=== PATIENT | female | born 1955 | race Caucasian/White ===

== ENCOUNTER 2025-07-13 15:49 | Inpatient (IN) | payer MEDICARE, SELFPAY ==
[2025-07-13 16:09] VITALS: BP 137/86; PULSE 79; RESP 18; TEMP 36.4; O2SAT 95; BMI 22.2
[2025-07-13 17:38] VITALS: BP 135/86; PULSE 71; RESP 16; TEMP 36.4; O2SAT 95
--- NOTE | 2025-07-13 17:42 | HP.PCM_ITS ---
HPI - General General Date of Admission: 07/13/25 Date of Service: 07/13/25 Chief Complaint: POST STROKE DEBILITY HPI Narrative RAYMOND BERRY, is a 70 YO F with a PMH of HTN and glaucoma who presented to an ED on 07/08/25 c/o R side weakness and slurred speech. Sx had been present for at least 24 H but, had gotten worse. NC CTB showed a focal density in the L basal ganglia and no evidence of cortical infarct. NIH was 3 more mild facial droop, drift with the R leg and mild-mod dysarthria. She received loading doses of Plavix and ASA and was started on Atorvastatin 80 mg daily. TTE showed normal LV systolic function with a 65-70% EF. There was grade I diastolic dysfunction and the bubble study was negative for PFO/ASD. MRA of the head showed no LVO or significant flow limiting stenosis or aneurysm. MRI showed a 10mm X 4 mm area of restricted diffusion within the left putamen that extended cranially into the dubois radiata. There was aged related volume loss and evidence of ischemic white matter demyelination. LDL was 191. The DC summary states that she was diagnosed with HFpEF and depression which were new diagnoses. Neurology recommendations are for DAPT for 21 days then ASA alone. DC summary states that at the time of DC she had no evident focal neurologic deficits. She was transferred to the acute inpt rehab unit at [facility] on 07/13/25 for 3 hours of therapy daily to restore function/independence at or near her level prior to the the stroke. FOR[facility]LY [facility], [facility] Medical History (Updated 07/14/25 @ 11:[address] Hailey Cordova, ) Left shoulder pain Glaucoma HLD (hyperlipidemia) HTN (hypertension) Poor dental hygiene Depression Dyslipidemia Stroke Home Medications ?Medication ?Instructions ?Recorded ?Last Taken ?Type aspirin 81 mg tablet 81 mg PO DAILY heart health 07/13/25 07/13/25 History atorvastatin 80 mg tablet (Lipitor) 80 mg PO QHS anand sterol 07/13/25 07/12/25 History nvgotmy-fihisdzew-pojm 333 mg-133 1 tab PO DAILY suppl ement 07/13/25 Unknown History mg-5 mg tablet clopidogrel 75 mg tablet (Plavix) 75 mg PO DAILY heart 07/13/25 07/13/25 History dorzolamide 22.3 mg-timolol 6.8 1 drp EACH EYE Q8H eye s 07/13/25 07/13/25 History mg/mL eye drops (Cosopt) escitalopram oxalate 10 mg tablet 10 mg PO DAILY depre ssion 07/13/25 Unknown History (Lexapro) mirtazapine 15 mg tablet (Remeron) 7.5 mg PO QHS apati te 07/13/25 Unknown History multivitamin with minerals-folic 1 tab PO DAILY supple ment 07/13/25 Unknown History acid 80 mcg chewable tablet (Centrum Adult 50 Plus) Allergy/AdvReac Type Severity Reaction Status Date / Time No Known Allergies Allergy Verified 07/13/25 16:13 Family History Mother Breast cancer CVA (cerebral vascular accident) Diabetes type 2 Osteoporosis Surgical History (Updated 07/13/25 @ 17:[address] Hailey Cordova DO) Hx of cholecystectomy H/O: hysterectomy History of oophorectomy Social History (Updated 07/13/25 @ 17:[address] Hailey Cordova DO) household members: spouse and other details: Husbands name is Augustus. housing: other details: 2 story house with bedroom and BR on the second floor. number of children: 3 Smoking Status: Never smoker alcohol intake: never substance use type: does not use ROS Review of Systems ROS Unobtainable: Denies due to encephalopathy, due to endotracheal tube, due to mental condition or due to mental status Constitutional Constitutional: Reports fatigue, weakness and other Details: Denies any pain at this time ; Denies anorexia, change in weight, chills, fever(s), headache(s) or night sweats Eyes Eyes: Reports requires corrective lenses; Denies blurry vision, change in vision, discharge from eye(s), eye pain, loss of vision or ptosis ENT HEENT: Reports other Details: Denies dysphagia but, admits to coughing sometime when eating and drinking. ; Denies abnormal hearing, dysphagia, headache(s), hearing loss, nasal congestion or sore throat Cardiovascular Cardiovascular: Reports edema; Denies chest pain, dyspnea on exertion, lightheadedness, orthopnea, palpitations, paroxysmal nocturnal dyspnea or syncope Respiratory/Chest Respiratory/Chest: Reports cough; Denies dyspnea, shortness of breath at rest, shortness of breath with exertion or wheezing Gastrointestinal Gastrointestinal: Denies abdominal pain, constipation, diarrhea, dyspepsia, hematemesis, hematochezia, nausea or vomiting Genitourinary Genitourinary: Reports urinary incontinence; Denies dysuria, hematuria, nocturia, urinary frequency, urinary hesitancy or urinary urgency Musculoskeletal Musculoskeletal: Reports joint pain and other Details: has joint pain chronically but, denies any pain at the time of my exam. ; Denies back pain, joint swelling or neck pain Neurologic Neurologic: Reports focal weakness and weakness; Denies confusion, disequilibrium, dizziness, headache(s), loss of vision, paresthesias, seizures, sensory deficit, tremor(s) or vertigo Psychiatric Psychiatric: Denies anxiety, depression, homicidal ideation or suicidal ideation Endocrine Endocrinology: Denies change in body appearance, polydipsia or polyuria Hematologic/Lymphatic Hematologic/Lymphatic: Denies easy bleeding, easy bruising or lymphadenopathy Allergic/Immunologic Allergic/Immunologic: Denies rhinitis, eczemia or asthma Vital Signs Vital Signs Vital Signs: 07/13/25 16:09 07/13/25 17:38 Temperature 97.6 F L 97.6 F L Temperature Source Temporal Temporal Pulse Rate 79 71 Respiratory Rate 18 16 Blood Pressure 137/86 H 135/86 H Blood Pressure Mean 103 102 Blood Pressure Source Monitor Blood Pressure Position Semi-Fowlers Blood Pressure Location Left Arm Pulse Ox 95 95 Oxygen Delivery Method Room Air Room Air Weight Weight: 121 lb 11.123 oz Body Mass Index (BMI) 22.2 Indicators for Scoring Admitted with or Primary Diagnosis of CVA/Stroke: Yes Hx of CVA/Stroke: Yes Modified [place] Score MRS Score at time of Evaluation: 4-Moderate/severe disability NIHSS NIHSS 1a. Level of Consciousness: 0 - Alert; keenly responsive 1b. LOC Questions: 0 - Answers BOTH questions correctly 1c. LOC Commands: 0 - Performs BOTH tasks correctly 2. Best Gaze: 0 - Normal 3. Visual: 0 - No visual loss 4. Facial Palsy: 2 - Partial paralysis (total or near-total paralysis of lower face) (R face ) 5a. Left Arm: 0 - No drift; arm holds 90 (or 45) degrees for full 10 seconds 5b. Right Arm: 1 - Drift; arm drifts downward but doesn?t hit the bed 6a. Left Le - No drift; leg holds 30-degree position for full 5 seconds 6b. Right Le - Drift; leg falls by the end of 5-seconds, but does not hit bed 7. Limb Ataxia: 0 - Absent (can not test the RUE due to weakness but no ataxia in the RLE) 8. Sensory: 0 - Normal; no sensory loss 9. Best Language: 0 - No aphasia; normal 10. Dysarthria: 1 = [id number]-cq-[id number] dysarthria; (speech is very difficult to understand) 11. Extinction and Inattention: 0 - No abnormality Total: 5 Stroke Questions Stroke Team Activated: No Physical Exam Const alert, oriented x3 and no apparent distress Constitutional Narrative: Lying in bed General Appearance: cooperative HEENT normocephalic, head/scalp atraumatic and hearing grossly normal bilaterally HEENT Narrative: Very poor dental hygiene. Many missing teeth and many obvious caries. + halitosis MM are dry. Tongue protrudes on the midline. Pronounced R facial droop with moderate dysarthria. Eyes PERRL, EOMs intact bilaterally, conjunctivae normal and no scleral icterus Eyes Narrative: No discharge from the eyes and no mattering of the eyelashes. No nystagmus. General Eye: normal appearance of both eyes Neck supple, no JVD, No nodes and no carotid bruits Neck Narrative: Brisk carotid upstroke with good pulse volume General: trachea midline Chest Chest: symmetrical chest wall rise Resp normal respiratory effort, normal air movement and clear to auscultation bilaterally Effort and Inspection: able to speak in complete sentences Cardio regular rate, regular rhythm, S1 normal heart sound, S2 normal heart sound, no murmurs, no rub, no gallops and no clicks Cardio Narrative: No ectopy GI normal to inspection, nondistended, normoactive bowel sounds, soft to palpation and non-tender GI Narrative: No guarding with palpation. No masses, no hepatosplenomegaly, no bruit. no CVA tenderness Extremity no calf tenderness Extremity Narrative: She has pitting edema of both ankles, L>R. She has superficial varicosities of both LE's. Pedal pulses are diminished. Both feet are warm to the touch and she has intact sensation in both feet. She has no clubbing. She does have arthritic changes in the DIP's and PIPS's of both hands. Skin no wounds and no jaundice Skin Narrative: No rashes. No unusual bruising. Neuro Neuro Narrative: Pronounced R facial droop. Able to raise her eyebrows and wrinkle her forehead on both sides. Tongue protrudes on the midline. PERRLA, EOMI, no nystagmus. at least moderate dysarthria.......having a hard time understanding her. Decreased shoulder shrug on the R. She is R hand dominant. Decreased hand provider network analyst on the R. She can lift the R arm off the bed and hold it up for a count of 10 but, she has drift........does not hit the bed. Can not check for ataxia due to weakness. She has weakness of the R leg........able to lift it off the bed and hold it off the bed for a count of 5 but, has some drift....does not hit the bed. No ataxia in the RLE. She has intact sensation in all extremities. No extinction. No aphasia. Psych cooperative, denies hallucinations, denies homicidal ideation and denies suicidal ideation Psych Narrative: Affect is flat. She tells me that she is frustrated. she tells me that she has not been eating because she does not like the food. The nursing report from the previous hospital is taht she has not been eating because she does not want to use her Left arm to feed herself. Has apparently not been drinking much either. Has needed a lot of encouragement to try and do things for herself. Denies any hx of depression in the past. Made good eye contact with me. Does not appear anxious. Results Lab / Micro Data 07/14/25 07:10 07/14/25 07:10 Assessment & Plan Assessment/Plan (1) Debility: (2) Ischemic cerebrovascular accident (CVA): (3) Dysarthria due to acute cerebrovascular accident (CVA): (4) Hemiparesis of right dominant side due to cerebral infarction: (5) HTN (hypertension): QUALIFIERS: Hypertension type: primary hypertension Qualified Code(s): I10 - Essential (primary) hypertension (6) HLD (hyperlipidemia): (7) Glaucoma: (8) Ankle edema: (9) Poor dental hygiene: (10) Depression: QUALIFIERS: Depression Type: unspecified Qualified Code(s): F32.A - Depression, unspecified (11) Grade I diastolic dysfunction: (12) Low HDL (under 40): (13) Hypertriglyceridemia: (14) Left shoulder pain: QUALIFIERS: Chronicity: chronic Qualified Code(s): M25.512 - Pain in left shoulder; G89.29 - Other chronic pain PLAN: Plan PLAN PT for gait stability OT for ADL's ST for evaluation Analgesics as needed Bowel protocol Fall precautions Assess for Anxiety/Depression GI prophylaxis -not necessary at this time. She denies any history of peptic ulcer disease/GERD. She denies nausea/vomiting/epigastric pain. DVT prophylaxis with heparin 5000 units SQ every 8 hours. This was what she was taking at the previous hospital. If her creatinine clearance is good we will likely transition to Lovenox 40 mg subcu daily. Follow up with PCP and neurology following DC from IP Rehab - No PCP is listed AM lab including CMP, CBC, Mag, Phos, HGBA1C, TSH and lipid panel. Change the antidepressant to Remeron to help stimulate appetite. DC Plavix on 07/31/25 and continue ASA 81 mg daily indefinitely. Stop HCTZ since she is reportedly not taking fluids well. She does have LE edema......due to HFpEF? or to venous insufficiency? May need to restart a diuretic at some pint but will defer that decision until I see the lab in the AM and see how she does with compression stockings. MARYLOU overton. ' Will need to follow up with a dentist soon after DC from rehab.......very poor dental hygiene. I suspect depression is not new......not taking care of herself and her hygiene prior to stroke and she did not seek medical attention until after she had sx of stroke for at least 24H. Goals for treatment are LDL 70 or less, BP less than 135/80 and HGBA1C less than 7. She is a non-smoker. Would likely benefit from counselling for depression. Charges/Coding Visit Charges Inpatient E&M: 44587 Init Hosp L3
[2025-07-13 18:02] VITALS: BMI 22.2
[2025-07-13] MEDS: Heparin Injection (Vial) 5,000 UNIT/ML VIAL 5000 UNIT SC (20:46)
[2025-07-13] MEDS: Dorzolamide HCL/Timolol 10 ml Bottle 1 DRP EACH EYE (20:46)
[2025-07-14 04:00] VITALS: BMI 22.2
[2025-07-14] MEDS: Dorzolamide HCL/Timolol 10 ml Bottle 1 DRP EACH EYE ×3 (04:41→21:27)
[2025-07-14] MEDS: Heparin Injection (Vial) 5,000 UNIT/ML VIAL 5000 UNIT SC (04:42)
[2025-07-14 06:00] VITALS: BP 144/81; PULSE 88; RESP 16; TEMP 36.4; O2SAT 91
[2025-07-14 07:26] LABS: Hematocrit 36.5 % (37-47); Hemoglobin 11.7 g/dL (12.0-15.0); Immature Granulocytes Count 0.060 X10^3/uL (0.0-0.0); Mean Corp Hgb Conc 32.1 g/dL (32-36); Mean Corpuscular Volume 88.4 fL (81-99); Mean Platelet Vol. 9.1 fl (6.2-12.0); NRBC Flagged by Analyzer 0 % (0-5); Platelet Count 453 K/mm3 (150-450); RBC Distribution Width CV 14.0 % (11.6-14.6); RBC Distribution Width SD 45.3 fl (35.1-43.9); Red Blood Count 4.13 M/mm3 (4.2-5.4); White Blood Count 10.4 K/mm3 (4.4-11.0)
[2025-07-14 08:08] LABS: AST(SGOT) 25 U/L (<=31); Alanine Aminotransfer ALT/SGPT 36 U/L (<=34); Albumin, Serum 3.1 g/dL (3.4-4.8); Alkaline Phosphatase 100 U/L (35-104); Anion Gap 11 (5-15); BUN 16 mg/dL (4-19); BUN/Creat Ratio 30.1 RATIO (10-20); Calcium,Total 9.7 mg/dL (7.6-11.0); Carbon Dioxide 24.6 mmol/L (21.0-32.0); Chloride 102 mmol/L (98-108); Cholesterol 163 mg/dL (<=200); Estimated Creatinine Clearance 51.75 ml/min (50-250); Globulin 3.2 g/dL (2.2-4.2); Glucose 106 mg/dL (70-99); Low Density Lipoprotein Calc. 89 mg/dL; Magnesium 2.4 mg/dL (1.5-2.2); Potassium 4.6 mmol/L (3.3-5.1); Triglycerides 263 mg/dL; Very Low Density Lipoprotein 53 mg/dL (5-40); cholesterol:hdl ratio screen 7.69
[2025-07-14 08:46] VITALS: O2SAT 93
--- NOTE | 2025-07-14 10:03 | PN_ITS ---
Subjective Subjective Afebrile VSS -systolic blood pressure since arrival on rehab has ranged from 135 to 144. The diastolic blood pressure has ranged from 81-86. Heart rate is within normal limit Maintaining appropriate oxygen saturation on RA Oral intake - FOOD refused supper last night but, she ate all her breakfast today FLUIDS poor Discussed with nursing - incontinent of urine Reviewed the THERAPY notes Medication list reviewed. C/O left shoulder pain. Denies lightheadedness, cephalgia, shortness of breath, cough, chest pain, palpitations, nausea/vomiting/abdominal pain, dysuria and calf tenderness. All lab from this morning was personally reviewed. White blood cell count is normal at 10.4 and the hemoglobin is 11.7 with normochromic normocytic indices. The RDW is elevated. Platelets are 453,000 which is mildly elevated. Differential was unremarkable. Sodium is 138 and the potassium is 4.6. BUN is 16 with a creatinine of 0.53 and a GFR of 99. The BUN/creatinine ratio is increased at 30.1. Hemoglobin A1c is elevated at 6.2. Calcium, phosphorus and magnesium are all unremarkable. LFTs are unremarkable. Triglycerides are elevated at 263 and the total cholesterol is 163. The LDL is 89 (down from 191 at the previous hospital.....she is taking Lipitor 80 mg at Bedtime. HDL is low at 21. TSH is normal at 3.37. Objective Data Objective Data Vital Signs: Vital Signs Temp Pulse Resp BP Pulse Ox O2 Del Method 97.5 F L 88 16 144/81 H 93 Room Air 07/14/25 06:00 07/14/25 06:00 07/14/25 06:00 07/14/25 06:00 07/14/25 08:46 07/14/25 08:46 Oxygen Delivery Method Room Air Weight: 121 lb 11.123 oz Body Mass Index (BMI) 22.2 Intake & Output: Intake and Output for Last 24 Hours 07/12/25 07/13/25 07/14/25 23:59 23:59 23:59 Intake Total 350 / 350 350 / 350 Balance 350 / 350 350 / 350 Lab / Micro Data 07/14/25 07:10 07/14/25 07:10 Labs: Laboratory Results - last 24 hr 07/14/25 07:10: WBC 10.4, RBC 4.13 L, Hgb 11.7 L, Hct 36.5 L, MCV 88.4, MCH 28.3, MCHC 32.1, RDW Std Deviation 45.3 H, RDW Coeff of Johnny 14.0, Plt Count 453 H, MPV 9.1, Immature Gran % (Auto) 0.600, Neut % (Auto) 73.7 H, Lymph % (Auto) 14.3 L, [place] % (Auto) 9.7, Eos % (Auto) 1.0, Baso % (Auto) 0.7, Absolute Neuts (auto) 7.7, Absolute Lymphs (auto) 1.49, Nucleated RBC % 0, Sodium 138, Potassium 4.6, Chloride 102, Carbon Dioxide 24.6, Anion Gap 11, BUN 16, C reatinine 0.53 L, Estim Creat Clear Calc 51.75, Est GFR (MDRD) Non-Af 99, B UN/Creatinine Ratio 30.1 H, Glucose 106 H, Calcium 9.7, Phosphorus 2.7, M agnesium 2.4 H, Total Bilirubin 0.18, AST 25, ALT 36 H, Alkaline Phosphatase 100, Total Protein 6.2, Albumin 3.1 L, Globulin 3.2, Albumin/Globulin Ratio 1.0, Triglycerides 263 H, Cholesterol 163, LDL Cholesterol, Calc 89, VLDL Cholesterol 53 H, HDL Cholesterol 21 L, Cholesterol/HDL Ratio 7.69, TSH 3.370 Physical Exam Const alert and no apparent distress Constitutional Narrative: Sitting in the recliner at the bedside. Appears comfortable. Doing better with eating with her left hand since she was provided with built-up handles. General Appearance: cooperative Resp normal respiratory effort and clear to auscultation bilaterally Effort and Inspection: Negative for tachypneic Cardio regular rate, regular rhythm, no murmurs, no rub and no gallops Cardio Narrative: No ectopy GI normal to inspection, nondistended, normoactive bowel sounds, soft to palpation and non-tender Extremity no calf tenderness Skin Rashes: no rashes Psych cooperative Appearance: appropriate Assessment & Plan Assessment/Plan (1) Debility: (2) Ischemic cerebrovascular accident (CVA): (3) Dysarthria due to acute cerebrovascular accident (CVA): (4) Hemiparesis of right dominant side due to cerebral infarction: (5) HTN (hypertension): QUALIFIERS: Hypertension type: primary hypertension Qualified Code(s): I10 - Essential (primary) hypertension (6) HLD (hyperlipidemia): (7) Glaucoma: (8) Ankle edema: (9) Poor dental hygiene: (10) Depression: QUALIFIERS: Depression Type: unspecified Qualified Code(s): F32.A - Depression, unspecified (11) Grade I diastolic dysfunction: (12) Low HDL (under 40): (13) Hypertriglyceridemia: (14) Left shoulder pain: QUALIFIERS: Chronicity: chronic Qualified Code(s): M25.512 - Pain in left shoulder; G89.29 - Other chronic pain PLAN: Plan 1. Continue therapy 2. Add niacin assay 500 mg nightly for low HDL 3. Add icosapent ethyl to help control TRIG........if the TRIG are less than 20 in 6-8 weeks on Atorvastatin then would trial discontinuation of this medication. Atorvastatin may be able to control TRIG once she has been taking it for 8-12 weeks. 4. Straight cath for a UA today. 5. Arthritis compounded pain cream to the left shoulder 3 times daily 6. Plain x-ray of the left shoulder today 7. Overnight trending pulse ox Charges/Coding Visit Charges Inpatient E&M: 20528 Subs Hosp L1
--- NOTE | 2025-07-14 10:03 | PCM.RU.PYE ---
Admission Information Primary Diagnosis:: Poststroke debility Status Changes from Prescreening?: No changes Identified Actual Problem List:: Cognitve Impr/Memory Loss, Depression, Bladder Incontinence, Bowel, Constipation, Alteration in Sleep, Alteration in Nutrition, Mobility Impaired, Self Care Deficit, Ineffective Communication (Communication is somewhat difficult due to her severe dysarthria.), Know.Dfct/Disease Process, Know.Dfct of Medicaitons, BP, Hypertension, Alteration/ Air Exchange, Fluid Change-Dehydration and Alteration-Leisure Activ. Potential Problem List:: DVT, Bleeding, Infection, UTI, Aspiration, Falls, Skin Integrity and Depression Risk of Complications DVT: LMWH and MARYLOU Hose Bleeding: Monitor Lab Values, Nursing to Teach Precautions for anti-coagulation therapy., Wound, if applicable, to be assessed every shift. and Stroke patients assessed for lethargy or change in status. Infection: Clinical Staff to Monitor for S/S of infection: and S/S of infection include fever, redness, warmth, etc. Urinary Tract Infection: Monitor for frequency, burning, discomfort, or incontinence. and Nursing will obtain urine sample for urinalysis and C&S when ordered. Aspiration: Clinical staff will monitor for coughing, drooling, congestion., Speech will evaluate swallowing and dsyphasia. and Nursing will monitor patient swallowing during meals. Falls: Patient will be evaluated for Fall Precautions and Patient will be placed on Fall Precautions as indicated per protocol. Skin Breakdown: Nursing will assess skin daily using assessment tool. and Nursing will place on Skin Breakdown Precautions as indicated. Pain: Clinical staff will assess patient's pain level per protocol., Medications will be given, if needed, and the pain level reassessed. and Other methods: Massage, distraction, decrease stimulus, etc. used PRN. Plan of Care Patient requires physician specializing in physical medicine and rehab oversight to provide close medical supervision of rehab issues including: Pain Management, Sleep Problems, Bowel and Bladder, Medical and co-morbidity Management, DVT prophylaxis, Rehabilitation Leadership and Coordination of treatment team Patient needs Physical Therapy: For a minimum of 1 hour and At least 5 out of 7 days Patient needs Physical Therapy to improve:: Mobility, Strengthening, Transfers, Stretching, ROM, Endurance, Stairs, Gait and Balance Patient needs Occupational Therapy: For a minimum of 1 hour and At least 5 out of 7 days Patient needs Occupational Therapy to improve ADL's incl.: Eating, Grooming, Bathing, Dressing, Toileting, Toilet transfers, Community Reintegration, Higher functioning activities, Household tasks, Adaptive Equipment, Splinting and Other activities as determined Patient requires speech therapy: For a minimum of 1 hour and At least 5 out of 7 days Patient requires speech therapy for: Swallowing, Cognition, Language Skills and Compensatory Strategies Patient requires 24/ Rehabilitation Nursing for: Pain Issues, Identifying and preventing risk factors, Monitoring and reporting current medical conditions, Assisting with ambulation, transfer, and all ADL's, Teaching patients about disease process and medications, Family teaching, Providing safe environment, Bowel and Bladder Issues, Skin integrity and Medication Management Patient needs Environmental Services Specialist/ Case Management for: Discharge Planning, Arranging Home Equipment or Services and Family Interventions Patient needs Dietary and Nutrition Services for: Adequate Nutrition, Nutritional Supplements and Nutritional Education Goals Goals Patient will remain: free from falls Patient will perform eating at: MOD I level of assist. Patient will perform bed mobility at: MOD I level of assist. Patient will complete transfers from bed to chair at: - (Contact-guard assist) Patient will ambulate: 100 feet (With least restrictive device on various surfaces at contact-guard assist) Patient will complete upper body dressing at: - (Min assist) Patient will complete lower body dressing at: - (Min assist with adaptive equipment as needed to facilitate increased independence with self-care) Patient will complete toilet transfer at: - (Min assist) Patient will complete toileting at: - (Min assist) Patient will perform bathing at: - (Upper body bathing at min assist and lower body bathing at min assist with adaptive equipment as needed to improve independence with self-care.) Patient will perform Tub/Shower transfer at: - (Min assist using DME as needed) Patient will complete grooming at: - (Set up level while seated at the sink) Patient will achieve: - (She will complete 3 steps with 1 handrail at min assist to allow access to her home.) Patient will have pain level of: of 3 or less Patient's skin will: remain intact Patient will receive: adequate nutrition. Discharge Planning Pt Prognosis for Sig. Practical Improv. w/in Reasonable Time: Good Estimated Length of stay (days): 28 Anticipated D/C Destination: TBD Was Preadmission Assessment Accurate?: Yes
[2025-07-14 12:10] LABS: Color, Urine Yellow (Yellow); Glucose, Dipstick Normal (Normal); Ketone-Dipstick Negative (Negative); Leukocyte Esterase-Dipstick Negative /ul (Negative); Nitrite-Dipstick Negative (Negative); Occult Blood-Urine Negative /ul (Negative); Protein-Dipstick 30 mg/dl (Negative); Red Blood Cells-Urine 0 SEEN /hpf (0-5); Specific Gravity, Urine 1.015 (1.002-1.030); Urine Bilirubin Dipstick Negative (Negative)
[2025-07-14] MEDS: Arthritis Pain Compound 60 CLICK TUBE TOPICAL ×2 (12:10→21:26)
--- NOTE | 2025-07-14 12:16 | CASEMGMT ---
Social Work SW attempted to see pt to complete initial assessment but unsuccessful. Will continue to attempt. Marilee Degroot METHODS TIME ANALYST ASSISTANT ASSOCIATE FULL PROFESSOR
[2025-07-14 12:27] LABS: Mucous, Urine 1+ /hpf (<or=2+); Squamous Epithelial Cells - UA 0-5 SEEN /hpf (5-10)
--- NOTE | 2025-07-14 12:33 | NURSING ---
1140 pt back to bed. attends dry. st cath for ua and bladderscanned for only 121. urine lt yellow and clear. casey well. rt arm up on pillow. aware that xray lt shoulder ordered
--- NOTE | 2025-07-14 13:00 | RAD_ITS ---
PROCEDURE: SHOULDER MIN 2 VIEWS 07/14/2025 REASON FOR EXAM: PAIN TECHNIQUE: SHOULDER MIN 2 VIEWS COMPARISON: None. FINDINGS: There is no evidence of fracture or dislocation. There is severe arthritis of the glenohumeral joint. There is moderate arthritis of the acromioclavicular joint. There is cranial migration of the humeral head consistent with rotator cuff arthropathy. RAD/Shoulder min 2 Views IMPRESSION: 1. Rotator cuff arthropathy. 2. Arthritis of the acromioclavicular and glenohumeral joints. Reading Location: [place] [id number]
[2025-07-14] MEDS: 0.9% Normal Saline (1000mL) 1,000 ML 75 ML IV (14:36)
[2025-07-14 16:02] VITALS: BMI 22.2
[2025-07-14 17:04] VITALS: BP 135/87; PULSE 80; RESP 16; TEMP 36.8; O2SAT 94
[2025-07-14 21:05] VITALS: BP 126/71; PULSE 75; RESP 20; TEMP 36.8; O2SAT 93
[2025-07-14] MEDS: Niacin SA 500 MG Tablet PO (21:28)
[2025-07-14] MEDS: Senna/Docusate Sodium 1 Tablet 2 TABLET PO (21:30)
--- NOTE | 2025-07-15 02:24 | NURSING ---
Pt. was incontinent. Bladder scanned for 260 mL residual. Straight cath for 300 mL.
[2025-07-15 03:53] VITALS: BMI 22.2
[2025-07-15] MEDS: 0.9% Normal Saline (1000mL) 1,000 ML 75 ML IV (04:16)
[2025-07-15] MEDS: Dorzolamide HCL/Timolol 10 ml Bottle 1 DRP EACH EYE ×3 (05:45→21:37)
[2025-07-15 05:51] VITALS: BP 125/67; PULSE 77; RESP 16; TEMP 37.2; O2SAT 91
[2025-07-15 06:35] VITALS: O2SAT 95
[2025-07-15] MEDS: Arthritis Pain Compound 60 CLICK TUBE TOPICAL ×2 (08:13→21:36)
[2025-07-15 13:04] VITALS: BMI 22.2
--- NOTE | 2025-07-15 13:09 | CASEMGMT ---
Social Work IDT met with patient at bedside, and via conference call for Team meeting. Discussed patient's progress in PT/OT/ST/SN/MD. Educated to [facility] insurance with NRD 07/20 and continued stay is not guaranteed with each review. Pt is doing well cognitively, but impaired speech and right side weakness. Pt's goal is to return home with , but needs to be a higher level of functioning. Will ReTeam weekly. SW will continue to follow for DC planning. Marilee Degroot CIVIL ENGINEERING PROFESSOR CNC SUPERVISOR
--- NOTE | 2025-07-15 15:26 | PCM.PROGNOTE ---
Subjective Subjective Charley was seen on team rounds today. Her Jatin participated by phone. All questions were answered to their satisfaction. Afebrile Blood pressure over the past 24 hours has ranged from 125/67 to 135/87. Heart rate is within normal limits. Pulse ox this a.m. was 91% Eating 50 to 100% of her meals and she is feeding herself. Fluid intake yesterday was 970 cc p.o. IV fluids were started yesterday for dehydration and poor intake. Remains incontinent of urine. She had a bowel movement today and she had 1 last night. slept well last night. She denies lightheadedness, shortness of breath, chest pain, abdominal pain, dysuria and calf tenderness. She tells me that she still has left shoulder pain but it is somewhat better with the arthritis pain cream. Shoulder x-ray showed severe arthritis of the glenohumeral joint with cephalad migration of the humeral head, more likely than not secondary to rotator cuff injury. She did tell nursing that she has been told in the past she had a rotator cuff problem... She has never had an MRI of the shoulder. She had the shoulder injected in the past by Dr. Donahue and did not feel it helped but, she is willing to try again. She is having pain in the R wrist today. The wrist is swollen and warm to touch. She has an IV just above the wrist. She had significant pain with extension of the wrist and flexion and palpation of the wrist. There is some redness. Objective Data Objective Data Vital Signs: Vital Signs Temp Pulse Resp BP Pulse Ox O2 Del Method 98.9 F 77 16 125/67 H 95 Room Air 07/15/25 05:51 07/15/25 05:51 07/15/25 05:51 07/15/25 05:51 07/15/25 06:35 07/15/25 06:35 Oxygen Delivery Method Room Air Weight: 121 lb 11.123 oz Body Mass Index (BMI) 22.2 Intake & Output: Intake and Output for Last 24 Hours 07/13/25 07/14/25 07/15/25 23:59 23:59 23:59 Intake Total 350 / 350 970 / 970 1340 / 1340 Output Total 60 / 60 500 / 500 Balance 350 / 350 910 / 910 840 / 840 Lab / Micro Data 07/14/25 07:10 07/14/25 07:10 Physical Exam Const alert Constitutional Narrative: good eye contact. General Appearance: cooperative Resp clear to auscultation bilaterally Effort and Inspection: Negative for tachypneic Cardio regular rate, regular rhythm and no gallops GI normal to inspection, nondistended, normoactive bowel sounds, soft to palpation and non-tender GI Narrative: Had BM today Extremity no calf tenderness Extremity Narrative: The R wrist is swollen and painful. There is some erythema. There is increased warmth to touch. She has pain with palpation, flexion and extension. There is an IV proximal to the wrist. the IV site is not red, swollen or painful........only the wrist. Skin Rashes: no rashes Assessment & Plan Assessment/Plan (1) Debility: (2) Ischemic cerebrovascular accident (CVA): (3) Dysarthria due to acute cerebrovascular accident (CVA): (4) Hemiparesis of right dominant side due to cerebral infarction: (5) HTN (hypertension): QUALIFIERS: Hypertension type: primary hypertension Qualified Code(s): I10 - Essential (primary) hypertension (6) HLD (hyperlipidemia): (7) Glaucoma: (8) Ankle edema: (9) Poor dental hygiene: (10) Depression: QUALIFIERS: Depression Type: unspecified Qualified Code(s): F32.A - Depression, unspecified (11) Grade I diastolic dysfunction: (12) Low HDL (under 40): (13) Hypertriglyceridemia: (14) Left shoulder pain: QUALIFIERS: Chronicity: chronic Qualified Code(s): M25.512 - Pain in left shoulder; G89.29 - Other chronic pain (15) Right wrist pain: PLAN: Plan 1. Continue therapy 2. Remove the IV from the R and place in the LUE. 3. Start Keflex 500 mg TID 4. Urine yesterday had 0 WBCs and no bacteria seen. 5. consider injecting the Left shoulder in a few days.........hold off because of possible cellulitis/joint infection R wrist. 6. CBC with diff, ESR and CRP in the AM. 7. Ice to the R wrist 8. Has Tylenol ordered PRN for pain. Will add low dose Tramadol if pain is not relieved with Tylenol. Charges/Coding Visit Charges Inpatient E&M: 73272 Subs Hosp L2
[2025-07-15 18:00] VITALS: BP 137/73; PULSE 83; RESP 17; TEMP 36.8; O2SAT 97
[2025-07-15 21:25] VITALS: BP 129/70; PULSE 88; RESP 20; TEMP 37.1; O2SAT 91
[2025-07-15] MEDS: Niacin SA 500 MG Tablet PO (21:40)
[2025-07-15 21:51] VITALS: PULSE 90; O2SAT 91
[2025-07-16 02:59] VITALS: BMI 22.2
[2025-07-16] MEDS: Dorzolamide HCL/Timolol 10 ml Bottle 1 DRP EACH EYE ×3 (05:31→21:13)
[2025-07-16] MEDS: 0.9% Saline Lock 10 ML Syringe IV ×2 (05:31→17:47)
[2025-07-16 06:00] VITALS: BP 135/75; PULSE 85; RESP 20; TEMP 37.1; O2SAT 91; BMI 20.2
[2025-07-16 07:43] LABS: Anion Gap 9 (5-15); BUN 9 mg/dL (4-19); BUN/Creat Ratio 21.7 RATIO (10-20); Calcium,Total 9.1 mg/dL (7.6-11.0); Carbon Dioxide 21.3 mmol/L (21.0-32.0); Chloride 105 mmol/L (98-108); Estimated Creatinine Clearance 51.75 ml/min (50-250); Glucose 123 mg/dL (70-99); Potassium 3.9 mmol/L (3.3-5.1)
[2025-07-16 07:49] LABS: Hematocrit 33.3 % (37-47); Hemoglobin 10.8 g/dL (12.0-15.0); Immature Granulocytes Count 0.210 X10^3/uL (0.0-0.0); Mean Corp Hgb Conc 32.4 g/dL (32-36); Mean Corpuscular Volume 87.6 fL (81-99); Mean Platelet Vol. 9.2 fl (6.2-12.0); NRBC Flagged by Analyzer 0 % (0-5); Platelet Count 405 K/mm3 (150-450); RBC Distribution Width CV 14.2 % (11.6-14.6); RBC Distribution Width SD 45.7 fl (35.1-43.9); Red Blood Count 3.80 M/mm3 (4.2-5.4); White Blood Count 10.8 K/mm3 (4.4-11.0)
[2025-07-16] MEDS: Arthritis Pain Compound 60 CLICK TUBE TOPICAL ×2 (08:47→21:14)
[2025-07-16 09:20] LABS: CRP 98.70 mg/L (0.0-3.0)
--- NOTE | 2025-07-16 10:28 | PN_ITS ---
Subjective Subjective Afebrile VSS -blood pressure over the past 48 hours has ranged from 125/67 to 137/73. Heart rate is within normal limits. Maintaining appropriate oxygen saturation on RA Oral intake - FOOD good FLUIDS poor oral fluid intake. She received intravenous fluids, 2 L of normal saline, over the previous 36 hours. Discussed with nursing - no problems that need addressed Reviewed the THERAPY notes Medication list reviewed. All lab drawn today was personally reviewed. White blood cell count is normal at 10.8 and the hemoglobin is 10.8, down from 11.7 on 07/14/2025. Today the immature granulocytes are increased at 1.9%. I suspect this is due to better hydration following administration of 2 L of intravenous normal saline for dehydration. Platelets are within normal limits. ESR is 32. Sodium is 136 and the potassium is 3.9. BUN is 9, down from 16 on 07/14/2025. Creatinine is 0.39. Fasting blood sugar this morning is 123 and the hemoglobin A1c on 07/14/2025 was elevated at 6.2. C-reactive protein is 98.7. UA showed no evidence of urinary tract infection and the lungs are clear to auscultation. She has no cough. ? CT disease? vascultis? CXR at previous hospital on 07/08 showed no infiltrates and no effusions. CXR today with atelectasis versus infiltrate in the left lower lobe and a small volume pleural effusion. Overnight trending pulse ox showed that approximately 30% of the time her oxygen saturation was 89% or less. Heart rate ranged from mid 60s to 102. She had multiple desaturation events, #18. She is c/o severe pain in the R wrist.....worse than yesterday. Denies F/C/sweats. 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 She denies SOB. Objective Data Objective Data Vital Signs: Vital Signs Temp Pulse Resp BP Pulse Ox O2 Del Method O2 Flow Rate 98.7 F 85 20 H 135/75 H 91 Room Air 0 07/16/25 06:00 07/16/25 06:00 07/16/25 06:00 07/16/25 06:00 07/16/25 06:00 07/16/25 06:00 07/15/25 21:51 FiO2 21 07/15/25 21:51 Oxygen Flow Rate (L/min) 0 Oxygen Delivery Method Room Air Weight: 110 lb 14.28 oz Body Mass Index (BMI) 20.2 Intake & Output: Intake and Output for Last 24 Hours 07/14/25 07/15/25 07/16/25 23:59 23:59 23:59 Intake Total 970 / 970 1705 / 1905 1700 / 1700 Output Total 60 / 60 500 / 500 Balance 910 / 910 1205 / 1405 1700 / 1700 Lab / Micro Data 07/16/25 07:11 07/16/25 07:11 Labs: Laboratory Results - last 24 hr 07/16/25 07:11: WBC 10.8, RBC 3.80 L, Hgb 10.8 L, Hct 33.3 L, MCV 87.6, MCH 28.4, MCHC 32.4, RDW Std Deviation 45.7 H, RDW Coeff of Johnny 14.2, Plt Count 405, MPV 9.2, Immature Gran % (Auto) 1.900 H, Neut % (Auto) 65.5, Lymph % (Auto) 17.6 L, Humphreys % (Auto) 12.3 H, Eos % (Auto) 1.6, Baso % (Auto) 1.1 H, Absolute Neuts (auto) 7.1, Absolute Lymphs (auto) 1.91, Nucleated RBC % 0, ESR 32 H, Sodium 136, Potassium 3.9, Chloride 105, Carbon Dioxide 21.3, Anion Gap 9, BUN 9, C reatinine 0.39 L, Estim Creat Clear Calc 51.75, Est GFR (MDRD) Non-Af 107, B UN/Creatinine Ratio 21.7 H, Glucose 123 H, Calcium 9.1, C-React Prot Ext Range 98.70 H Physical Exam Const alert General Appearance: cooperative Neck No nodes Resp Resp Narrative: Diminished in the bases. Not tachypneic and no labored breathing. Cardio regular rate, regular rhythm, no murmurs, no rub and no gallops Cardio Narrative: No ectopy GI normal to inspection, nondistended, normoactive bowel sounds, soft to palpation and non-tender GI Narrative: No guarding with palpation. Extremity no calf tenderness Extremity Narrative: She has edema of both ankles......it is pitting and this is chronic. The R wrist is edematous. The R wrist is erythematous and this extends into the hand, michelle the MCP joint of the index finger. The wrist is hot to touch and there is limited ROM, less than yesterday. She has severe pain with attempts to extend or flex the wrist. There are no openings in the sk9in over the wrist/hand. Skin Rashes: no rashes Neuro Neuro Narrative: Pronounced R facial droop. Able to raise her eyebrows and wrinkle her forehead on both sides. Tongue protrudes on the midline. PERRLA, EOMI, no nystagmus. at least moderate dysarthria.......having a hard time understanding her. Decreased shoulder shrug on the R. She is R hand dominant. 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 She can lift the R arm off the bed and hold it up for a count of 10 but, she has drift........does not hit the bed. Can not check for ataxia due to weakness. She has weakness of the R leg........able to lift it off the bed and hold it off the bed for a count of 5 but, has some drift....does not hit the bed. No ataxia in the RLE. She has intact sensation in all extremities. No extinction. No aphasia. Assessment & Plan Assessment/Plan (1) Septic arthritis: (2) Pleural effusion, left: (3) Debility: (4) Ischemic cerebrovascular accident (CVA): (5) Dysarthria due to acute cerebrovascular accident (CVA): (6) Hemiparesis of right dominant side due to cerebral infarction: (7) HTN (hypertension): QUALIFIERS: Hypertension type: primary hypertension Qualified Code(s): I10 - Essential (primary) hypertension (8) HLD (hyperlipidemia): (9) Glaucoma: (10) Ankle edema: (11) Poor dental hygiene: (12) Depression: QUALIFIERS: Depression Type: unspecified Qualified Code(s): F32.A - Depression, unspecified (13) Grade I diastolic dysfunction: (14) Low HDL (under 40): (15) Hypertriglyceridemia: (16) Left shoulder pain: QUALIFIERS: Chronicity: chronic Qualified Code(s): M25.512 - Pain in left shoulder; G89.29 - Other chronic pain PLAN: OA of the glenohumeral joint and suspected rotator cuff tear. PLAN: Plan 1. Continue therapy 2. Rheumatoid factor, CCP, MARLO, ANCA - 3. O2 supplementation anytime she is sleeping 4. Will need a sleep study at [place] from rehab. 5. Check a Hemoccult stool 6. Get a PA and lat CXR today - done. Now with a small left pleural effusion and atelectasis vs infiltrate in the left base. This was not present at the previous hospital on a chest XRAY done 07/08/25. 7. Xray the R wrist. With the increasing swelling, redness and pain in the R wrist and now the L pleural effusion and possible infiltrate in the L base I am very concerned about septic arthritis in the R wrist......... did this originate in the left lung and she now has bacteremic spread to the R wrist or Did the infection start in the R wrist and then spread to the left lung? This infection is hospital acquired. Would like to have the R wrist aspirated by Ortho prior to starting IV Vanco and Zosyn if possible. D/W Dr. Corley from the hospitalist service. CAn not get an ortho consult on rehab today. Will transfer to the acute side of the hospital for an orthopedic consult. Check a lactic acid level now. Will take her back on rehab when she has been appropriately treated for septic arthritis. Will notify Charley's , Jatin, of patient's transfer. Charges/Coding Visit Charges Inpatient E&M: 06283 Subs Hosp L3
--- NOTE | 2025-07-16 14:35 | RAD_ITS ---
PROCEDURE: CHEST PA AND LATERAL 07/16/2025 REASON FOR EXAM: HYPOXEMIA TECHNIQUE: CHEST PA AND LATERAL COMPARISON: None FINDINGS: Hardware: None Heart: Top-normal size. Mediastinum: Aorta is tortuous. Lungs: Subsegmental atelectasis left lung base. Likely scant left pleural effusion. No pneumothorax. Bones: Curvature thoracolumbar spine. Degenerative changes of the shoulders, [id number]. RAD/Chest PA and Lateral IMPRESSION: Subsegmental atelectasis left lower lobe with small volume pleural fluid. Reading Location: [id number]
--- NOTE | 2025-07-16 15:24 | RAD_ITS ---
PROCEDURE: WRIST MIN 3 VIEWS 07/16/2025 REASON FOR EXAM: SWELLING/PAIN TECHNIQUE: WRIST MIN 3 VIEWS Laterality: Right COMPARISON: None available. FINDINGS: Bones: No visible fracture. No suspicious bone lesion. Joints: Normal alignment. Advanced degenerative changes. Soft tissues: Soft tissues are unremarkable. RAD/Wrist min 3 Views IMPRESSION: DEGENERATIVE OSTEOARTHROSIS. NO ACUTE FINDINGS. Reading Location: [facility]
[2025-07-16 16:23] VITALS: BMI 20.2
[2025-07-16 16:26] VITALS: BP 138/74; PULSE 82; RESP 17; TEMP 37; O2SAT 94
[2025-07-16] MEDS: Lidocaine 1% /Epi 1:100 (20ml) 20 ML Vial INFILT (17:28)
--- NOTE | 2025-07-16 17:29 | CON.PCM.SX_ITS ---
Assessment & Plan Assessment/Plan (1) Right hand pain: (2) Right wrist pain: PLAN: Plan I talked the patient about the risks, benefits, and alternatives to joint aspiration. She agreed with our consent Timeout was performed with the nursing staff and the medicine team and all parties were in agreement. The right wrist was aspirated at bedside after being prepped with an alcohol swab (distal to Frankie's tubercle and the 3 4 interval). 1 cc of yellow fluid was sent to pathology for analysis. Attempt was made at right index finger MCP joint aspiration. There was approximately 0.25 cc of clear colorless fluid that was aspirated and sent for analysis. Plan will be for rest and elevation overnight Start empiric broad-spectrum antibiotics N.p.o. at midnight for possible washout of the right wrist/right index finger MCP joint Patient had some relief after aspiration. Will rule out inflammatory arthritis with crystals and get cell counts for the right wrist and the index finger. Patient and medicine team happy with the plan. HPI Consult Data Date of Consult: 07/16/25 HPI Narrative HPI Narrative: RAYMOND BERRY, is a 70 F who presents with acute onset right wrist pain and right index finger MCP joint pain of 1 days duration. She is recently had a pneumonia in the setting of a stroke and is in the acute rehab center right now. She has residual right-sided weakness from the stroke. She reports sharp severe pain from the right wrist worsened by movements and improved with rest and elevation. Same sharp severe pain of the right index finger MCP joint. Patient denies any history of any inflammatory arthritis. She is right-handed Infectious disease has been consulted by the medicine team. Medicine team has consulted me for evaluation. [facility] Medical History Left shoulder pain Glaucoma HLD (hyperlipidemia) HTN (hypertension) Poor dental hygiene Depression Dyslipidemia Stroke Home Medications ?Medication ?Instructions ?Recorded ?Last Taken ?Type aspirin 81 mg tablet 81 mg PO DAILY heart health 07/13/25 07/13/25 History atorvastatin 80 mg tablet (Lipitor) 80 mg PO QHS anand sterol 07/13/25 07/12/25 History vmxuiqj-dfnaoaqtr-paje 333 mg-133 1 tab PO DAILY suppl ement 07/13/25 Unknown History mg-5 mg tablet clopidogrel 75 mg tablet (Plavix) 75 mg PO DAILY heart 07/13/25 07/13/25 History dorzolamide 22.3 mg-timolol 6.8 1 drp EACH EYE Q8H eye s 07/13/25 07/13/25 History mg/mL eye drops (Cosopt) mirtazapine 15 mg tablet (Remeron) 7.5 mg PO QHS apati te 07/13/25 Unknown History multivitamin with minerals-folic 1 tab PO DAILY supple ment 07/13/25 Unknown History acid 80 mcg chewable tablet (Centrum Adult 50 Plus) Allergy/AdvReac Type Severity Reaction Status Date / Time No Known Allergies Allergy Verified 07/13/25 16:13 Family History Mother Breast cancer CVA (cerebral vascular accident) Diabetes type 2 Osteoporosis Surgical History Hx of cholecystectomy H/O: hysterectomy History of oophorectomy Social History household members: spouse and other details: Husbands name is Augustus. housing: other details: 2 story house with bedroom and BR on the second floor. number of children: 3 Smoking Status: Never smoker alcohol intake: never substance use type: does not use Physical Exam Narrative Right upper Extremity Inspection: Exam severely limited secondary to pain. Redness and warmth of the right dorsal wrist and right dorsal index finger MCP joint. Palpation: Pain with axial loading of the MCP joint of the right index finger and the wrist. Motor: Unable to make a full fist secondary to pain Sensory: Intact to light touch on the radial and ulnar borders. Vascular: Finger tips are warm and well perfused with <2 second capillary refill. Lab / Micro Data 07/16/25 07:11 07/16/25 07:11 Labs: Laboratory Results - last 24 hr 07/16/25 07:11: WBC 10.8, RBC 3.80 L, Hgb 10.8 L, Hct 33.3 L, MCV 87.6, MCH 28.4, MCHC 32.4, RDW Std Deviation 45.7 H, RDW Coeff of Jonhny 14.2, Plt Count 405, MPV 9.2, Immature Gran % (Auto) 1.900 H, Neut % (Auto) 65.5, Lymph % (Auto) 17.6 L, [place] % (Auto) 12.3 H, Eos % (Auto) 1.6, Baso % (Auto) 1.1 H, Absolute Neuts (auto) 7.1, Absolute Lymphs (auto) 1.91, Nucleated RBC % 0, ESR 32 H, Sodium 136, Potassium 3.9, Chloride 105, Carbon Dioxide 21.3, Anion Gap 9, BUN 9, C reatinine 0.39 L, Estim Creat Clear Calc 51.75, Est GFR (MDRD) Non-Af 107, B UN/Creatinine Ratio 21.7 H, Glucose 123 H, Calcium 9.1, C-React Prot Ext Range 98.70 H, Rheumatoid Factor < 10.0 07/16/25 12:41: YIFAN-1 Antibody TNP, Sm (Patino) Antibody TNP, ADMINISTRATIVE TECH Antibody TNP, Scl-70 Scleroderma Ab TNP, Antichromatin Antibodies TNP, Centromere B Antibody TNP Imaging Radiology Impression Chest X-Ray 07/16/25 14:35 IMPRESSION: Subsegmental atelectasis left lower lobe with small volume pleural fluid. Reading Location: [facility] Wrist X-Ray 07/16/25 15:24 IMPRESSION: DEGENERATIVE OSTEOARTHROSIS. NO ACUTE FINDINGS. Reading Location: [facility] I reviewed the x-ray of the right wrist and did not see any acute findings Severe arthritis Charges/Coding Visit Charges Office Visits / Consults: 80595 OV L3 New 30min
[2025-07-16] MEDS: 0.9% Normal Saline (250mL Bag) 250 ML 15 ML IV (17:55)
[2025-07-16] MEDS: Vancomycin HCl 750 MG in 0.9% Normal Saline (250mL Bag) 250 ML 250 MG IV (17:55)
[2025-07-16 18:00] VITALS: BP 138/74; PULSE 82; RESP 17; TEMP 37; O2SAT 96
[2025-07-16 18:15] LABS: Uric Acid 2.3 mg/dL (2.6-6.0)
--- NOTE | 2025-07-16 18:47 | PCM.RX.CS ---
Consult Antibiotic Management Pharmacy has been consulted to manage selected antibiotic: Vancomycin Type of Intervention Type of Consult: New start Suspected Infection Suspected Infection: Sepsis Labs Labs: Sodium 136 mmol/L (133-145) 07/16/25 07:11 Potassium 3.9 mmol/L (3.3-5.1) 07/16/25 07:11 Chloride 105 mmol/L (98-108) 07/16/25 07:11 Carbon Dioxide 21.3 mmol/L (21.0-32.0) 07/16/25 07:11 Anion Gap 9 (5-15) 07/16/25 07:11 BUN 9 mg/dL (4-19) 07/16/25 07:11 Creatinine 0.39 mg/dL (0.70-1.20) L 07/16/25 07:11 Est GFR (MDRD) Non-Af 107 (>60) 07/16/25 07:11 BUN/Creatinine Ratio 21.7 RATIO (10-20) H 07/16/25 07:11 Glucose 123 mg/dL (70-99) H 07/16/25 07:11 Microbiology Microbiology: PENDING Dosing Weight Weight used for dosin.3 kg Estimated Creatinine Clearance Estimated Creatinine Clearance: 51.75 ML/M Goal Trough Goal Trough: 15-20 mcg/mL Pharmacy Plan for Drug Dosing Pharmacy Plan for Drug Dosing: NEW START IV VANCOMYCIN Consulting Physician: Dr. Cordova Indication: Septic Arthritis Goal Trough: 15-20 SrCr: 0.39 mg/dL CrCl: 51.75 ML/MIN Vancomycin Dose: 1* 750 , AND 500 MG Q12H STARTING 07/17/2025 @0600 Pending Level: 07/18/2025 @0530 Pharmacy Service will continue to monitor and adjust dosing as required. Follow-Up Labs Follow-Up Labs: Trough: Vancomycin Date/Time Labs Ordered Labs to be done on [date and time ordered]: 07/17/2025 @ 1029
--- NOTE | 2025-07-16 18:55 | NURSING ---
Received call from lab that joint fluid removed form pt was sent down by the infectious waste technician in the tube system. The sample is no longer usable it spilled out into the bag. Dr Cordova made aware she will update Dr Smith
[2025-07-16] MEDS: Piperacil/Tazobactam 3.375 GM in 0.9% Normal Saline (50mL MB+) 50 ML IV (20:41)
[2025-07-16 20:45] VITALS: O2SAT 98
[2025-07-16] MEDS: Niacin SA 500 MG Tablet PO (21:13)
[2025-07-17] VITALS (12 sets, daily range): BP systolic 120–164; BP diastolic 69–78; PULSE 71–88; RESP 16–17; TEMP 36.3–36.7; O2SAT 92–97; BMI 20.2
--- NOTE | 2025-07-17 02:06 | NURSING ---
Pt complains of r wrist pain at 09/10. Pt npo, call to Dr. Watson for order for iv pain med. Orders received for 1 time dose 2 mg IV morphine.
[2025-07-17] MEDS: 0.9% Saline Lock 10 ML Syringe IV ×4 (02:25→20:12)
--- NOTE | 2025-07-17 06:26 | PCM.RX.CS ---
Consult Labs Labs: Sodium 136 mmol/L (133-145) 07/16/25 07:11 Potassium 3.9 mmol/L (3.3-5.1) 07/16/25 07:11 Chloride 105 mmol/L (98-108) 07/16/25 07:11 Carbon Dioxide 21.3 mmol/L (21.0-32.0) 07/16/25 07:11 Anion Gap 9 (5-15) 07/16/25 07:11 BUN 9 mg/dL (4-19) 07/16/25 07:11 Creatinine 0.39 mg/dL (0.70-1.20) L 07/16/25 07:11 Est GFR (MDRD) Non-Af 107 (>60) 07/16/25 07:11 BUN/Creatinine Ratio 21.7 RATIO (10-20) H 07/16/25 07:11 Glucose 123 mg/dL (70-99) H 07/16/25 07:11 Pharmacy Plan for Drug Dosing Pharmacy Plan for Drug Dosing: Pharmacy Service will continue to monitor and adjust dosing as required.
[2025-07-17] MEDS: Vancomycin HCl 500 MG in 0.9% Normal Saline (100mL Bag) 100 ML 100 MG IV ×2 (06:28→18:29)
[2025-07-17] MEDS: Dorzolamide HCL/Timolol 10 ml Bottle 1 DRP EACH EYE ×3 (06:28→21:07)
--- NOTE | 2025-07-17 06:28 | PCM.HP.STD ---
HPI - General General Date of Admission: 07/13/25 Chief Complaint: POST STROKE DEBILITY HPI Narrative RAYMOND BERRY is a 70 F who presents with a painful right wrist and now right index finger MCP joint of 2 days duration. I tapped the wrist and MCP joint yesterday and the sample was lost I was told they placed the syringes in the tube system and when they reached the lab there was no fluid in the syringes and nothing was recoverable. Today the patient has not improved with rest and elevation. I have a high suspicion for septic arthritis of these 2 joints. The fluid was yellow yesterday and consistent with either an inflammatory arthritis or a septic joint, and I think it was more opaque in quality. I think given the fact that she is not improving and is becoming worse from this condition, she needs to be treated as if she has septic arthritis. I will take her emergently to surgery today. Patient is in agreement after I counseled her on the risks, benefits, and alternatives. [facility] Medical History Left shoulder pain Glaucoma HLD (hyperlipidemia) HTN (hypertension) Poor dental hygiene Depression Dyslipidemia Stroke Home Medications ?Medication ?Instructions ?Recorded ?Last Taken ?Type aspirin 81 mg tablet 81 mg PO DAILY heart health 07/13/25 07/13/25 History atorvastatin 80 mg tablet (Lipitor) 80 mg PO QHS cholesterol 07/13/25 07/12/25 History pilaads-zsinhlmcq-uymd 333 mg-133 1 tab PO DAILY supplement 07/13/25 Unknown History mg-5 mg tablet clopidogrel 75 mg tablet (Plavix) 75 mg PO DAILY heart 07/13/25 07/13/25 History dorzolamide 22.3 mg-timolol 6.8 1 drp EACH EYE Q8H eyes 07/13/25 07/13/25 History mg/mL eye drops (Cosopt) mirtazapine 15 mg tablet (Remeron) 7.5 mg PO QHS apatite 07/13/25 Unknown History multivitamin with minerals-folic 1 tab PO DAILY supplement 07/13/25 Unknown History acid 80 mcg chewable tablet (Centrum Adult 50 Plus) Allergy/AdvReac Type Severity Reaction Status Date / Time No Known Allergies Allergy Verified 07/13/25 16:13 Family History Mother Breast cancer CVA (cerebral vascular accident) Diabetes type 2 Osteoporosis Surgical History Hx of cholecystectomy H/O: hysterectomy History of oophorectomy Social History household members: spouse and other details: Husbands name is Augustus. housing: other details: 2 story house with bedroom and BR on the second floor. number of children: 3 Smoking Status: Never smoker alcohol intake: never substance use type: does not use Vital Signs Vital Signs Vital Signs: 07/16/25 10:00 07/16/25 16:26 07/16/25 18:00 Temperature 98.6 F 98.6 F Temperature Source Temporal Temporal Pulse Rate 82 82 Pulse Strength Respiratory Rate 17 17 Respiratory Effort Normal Non-Labored Respiratory Depth Normal Respiratory Pattern Normal Blood Pressure 138/74 H 138/74 H Blood Pressure Mean 95 95 Blood Pressure Source Monitor Monitor Blood Pressure Position Semi-Fowlers Semi-Fowlers Blood Pressure Location Left Forearm Left Arm Pulse Ox 94 96 Oxygen Delivery Method Room Air Room Air Oxygen Flow Rate (L/min) 07/16/25 20:45 07/16/25 22:00 07/17/25 00:15 Temperature 97.3 F L Temperature Source Temporal Pulse Rate Pulse Strength Normal (2+) Respiratory Rate 17 Respiratory Effort Respiratory Depth Respiratory Pattern Blood Pressure Blood Pressure Mean Blood Pressure Source Blood Pressure Position Blood Pressure Location Pulse Ox 98 96 Oxygen Delivery Method Nasal Cannula Oxygen Flow Rate (L/min) 2 2 07/17/25 06:00 Temperature 97.7 F L Temperature Source Tympanic Pulse Rate Pulse Strength Respiratory Rate 16 Respiratory Effort Respiratory Depth Respiratory Pattern Blood Pressure 120/69 Blood Pressure Mean 86 Blood Pressure Source Monitor Blood Pressure Position Semi-Fowlers Blood Pressure Location Left Arm Pulse Ox 97 Oxygen Delivery Method Nasal Cannula Oxygen Flow Rate (L/min) 2 Weight Weight: 110 lb 14.28 oz Body Mass Index (BMI) 20.2 Physical Exam Narrative Right upper Extremity Inspection: Exam severely limited secondary to pain. Redness and warmth of the right dorsal wrist and right dorsal index finger MCP joint. Palpation: Pain with axial loading of the MCP joint of the right index finger and the wrist. Motor: Unable to make a full fist secondary to pain Sensory: Intact to light touch on the radial and ulnar borders. Vascular: Finger tips are warm and well perfused with <2 second capillary refill. Results Lab / Micro Data 07/16/25 07:11 07/16/25 07:11 Labs: Laboratory Results - last 24 hr 07/16/25 07:11: WBC 10.8, RBC 3.80 L, Hgb 10.8 L, Hct 33.3 L, MCV 87.6, MCH 28.4, MCHC 32.4, RDW Std Deviation 45.7 H, RDW Coeff of Johnny 14.2, Plt Count 405, MPV 9.2, Immature Gran % (Auto) 1.900 H, Neut % (Auto) 65.5, Lymph % (Auto) 17.6 L, [place] % (Auto) 12.3 H, Eos % (Auto) 1.6, Baso % (Auto) 1.1 H, Absolute Neuts (auto) 7.1, Absolute Lymphs (auto) 1.91, Nucleated RBC % 0, ESR 32 H, Sodium 136, Potassium 3.9, Chloride 105, Carbon Dioxide 21.3, Anion Gap 9, BUN 9, Creatinine 0.39 L, Estim Creat Clear Calc 51.75, Est GFR (MDRD) Non-Af 107, BUN/Creatinine Ratio 21.7 H, Glucose 123 H, Calcium 9.1, C-React Prot Ext Range 98.70 H, Rheumatoid Factor < 10.0 07/16/25 12:41: YIFAN-1 Antibody TNP, Sm (Patino) Antibody TNP, DOUGH MIXER OPERATOR Antibody TNP, Scl-70 Scleroderma Ab TNP, Antichromatin Antibodies TNP, Centromere B Antibody TNP 07/16/25 17:35: Lactic Acid < 1.0, Uric Acid 2.3 L Imaging Radiology Impression Chest X-Ray 07/16/25 14:35 IMPRESSION: Subsegmental atelectasis left lower lobe with small volume pleural fluid. Reading Location: [id number] Wrist X-Ray 07/16/25 15:24 IMPRESSION: DEGENERATIVE OSTEOARTHROSIS. NO ACUTE FINDINGS. Reading [facility] Assessment & Plan Assessment/Plan (1) Septic arthritis: (2) Septic finger of right hand: PLAN: Plan I talked to the patient extensively about the risks of surgery, including bleeding, infection, damage to surrounding structures (cutaneous nerves as well as joint ligaments, as well as the extensor mechanism), poor scaring, surgical site dehiscence and wound formation, need for wound care, need for repeat operations, failure to obtain the desired result, DVT/PE, and the risks of anesthesia including , including stroke (from low blood pressure/ischemia or clot). The benefits and alternatives of this surgery were also discussed. All of their questions were answered, and they agreed to proceed with surgery. Plan to washout right wrist and index finger with dorsal approaches today in the operating room. Patient is in agreement
[2025-07-17] MEDS: 0.9% Normal Saline (250mL Bag) 250 ML 15 ML IV ×2 (06:32→14:10)
[2025-07-17] MEDS: Piperacil/Tazobactam 3.375 GM in 0.9% Normal Saline (50mL MB+) 50 ML IV ×3 (08:06→22:04)
--- NOTE | 2025-07-17 08:40 | NURSING ---
Report given to surgery and patient left off the unit, npo status maintained and zosyn continues to run per order.
[2025-07-17] MEDS: 0.9% Normal Saline (1000mL) 1,000 ML 15 ML IV (08:50)
--- NOTE | 2025-07-17 09:06 | PRE.ANES_ITS ---
ASA Classification* ASA Classification ASA Classification: 3 Assessment & Plan Anesthesia* Anesthesia Assessment Anesthesia Assessment: Discussed sedation and/or anesthesia options, risks, benefits, and alternatives with patient/parents/legal guardian/POA. Questions invited. The patient/parents/legal guardian/POA seems to understand and agrees to proceed with anesthesia plan. Reviewed the physical assessment, medical history, allergy history and patient home medications list prior to surgery/procedure/anesthetic and documented any changes. Performed airway and anesthesia risk assessments. Anesthesia Type Anesthesia Type: General History Source History Obtained from:: Patient and Chart Anesthesia Focused Assessment* Temperature: 97.7 F Pulse Rate: 82 Blood Pressure: 120/69 Respiratory Rate: 16 Pulse Ox: 97 Oxygen Delivery Method: Room Air Oxygen Flow Rate (L/min): 2 Fraction of Inspired Oxygen (FIO2): 21 Airway Assessment Mouth opens: >3 cm Mallampati Score: II Teeth Condition: Chipped/Broken Neck Range of motion (ROM): Limited ROM Labs Anesthesia Preop lab: CBC WBC 10.8 K/mm3 (4.4-11.0) 07/16/25 07:11 07/16/25 RBC 3.80 M/mm3 (4.2-5.4) L 07/16/25 07:11 07/16/25 Hgb 10.8 g/dL (12.0-15.0) L 07/16/25 07:11 5 Hct 33.3 % (37-47) L 07/16/25 07:11 07/16/25 Plt Count 405 K/mm3 (150-450) 07/16/25 07:11 07/16/25 CHEMISTRY Potassium 3.9 mmol/L (3.3-5.1) 07/16/25 07:11 07/16/25 Sodium 136 mmol/L (133-145) 07/16/25 07:11 07/16/25 Magnesium 2.4 mg/dL (1.5-2.2) H 07/14/25 07:10 07/14/25 Phosphorus 2.7 mg/dL (2.7-4.5) 07/14/25 07:10 07/14/25 BUN 9 mg/dL (4-19) 07/16/25 07:11 07/16/25 Creatinine 0.39 mg/dL (0.70-1.20) L 07/16/25 07:11 Glucose 123 mg/dL (70-99) H 07/16/25 07:11 07/16/25 TSH 3.370 uIU/mL (0.300-4.200) 07/14/25 07:10 07/02 02/23 COAG Pre-Assessment Diagnosis/Proposed Procedure Planned Operative Procedure(s): I&D hand Anesthesia History Anesthesia History - 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 When Was Last Pacemaker Check QUESTION #4 FULL TEXT: You/Your Family Experience fever (hyperthermia) with Anesthesia Last Oral Intake Last Oral intake: Last Oral Intake NPO since Meds taken in AM with sips of water? Meds patient instructed to take am of surgery PONV PONV - prosthetics lab technician: PONV - prosthetics lab technician Female HX of Motion Sickness HX of N/V After Surgery Non-Smoker Duration of Surgery greater than 60 minutes Number of Risk Factors PONV Score Height & Weight Height & Weight: Anesthesia: Height & Weight Height 5 ft 2 in 07/14/25 12:59 Weight: 50.3 kg 07/16/25 06:00 Body Mass Index (BMI) 20.2 07/17/25 05:00 Respiratory Assessment Respiratory Assessment - prosthetics lab technician: Respiratory Tract Infection Hx - prosthetics lab technician Hx Respiratory Tract Infection STOP Sleep Apnea STOP Sleep Apnea - prosthetics lab technician: STOP Sleep Apnea - prosthetics lab technician Hx Hypertension Yes 07/17/25 05:00 Hx Sleep Apnea No 07/13/25 16:09 CPAP BIPAP Do you snore loudly (louder No 07/13/25 16:09 than talking or can be heard Do you often feel tired/ No 07/13/25 16:09 fatigued/ sleepy during daytime? Has anyone observed you stop No 07/13/25 16:09 breathing during sleep? STOP Results Negative 07/13/25 16:09 QUESTION #5 FULL TEXT : Do you snore loudly (louder than talking or can be h eard through closed doors)? Tobacco Use History Tobacco Use History - prosthetics lab technician: Tobacco Use History - prosthetics lab technician Tobacco Use Smoking Status Never smoker 07/17/25 05:00 Hx Tobacco Use No 07/13/25 16:09 Years Smoking Packs Smoked per Day Smoking Cessation Date was within the last 15 years Hx Smoking Cessation Date Hx Smoking Cessation Counseling Hematologic Medial History Hematologic Hx - prosthetics lab technician: Hematologic Medical Hx - communications coordinator Hx of Blood Transfusion No 07/13/25 16:09 Hx of Transfusion in last 3 No 07/13/25 16:09 Months Date of Last Transfusion (if within last 3 months) Ever experience any problems No 07/13/25 16:09 with transfusion(s)? Specify any problems Hx of Preganancy in last 3 No 07/13/25 16:09 Months Nurse Filling Out Transfusion KAKERS 07/13/25 16:09 & Questions: Date: 07/13/25 07/13/25 16:09 Time: 16:53 07/13/25 16:09 Patient unable to answer at this time (ie. confused, unrespo /Reproduction History /Reproductive History - prosthetics lab technician: /Reproductive Hx- prosthetics lab technician Hx Now Gestational Age (in weeks): EDC: Hx Hx Para Hx Section SAB Active Medications Active Medications: Current Medications Generic Name Dose Route Start Last Admin Trade Name Freq PRN Reason Stop Dose Admin Acetaminophen 650 mg 07/13/25 16:28 07/16/25 20:40 Acetaminophen 325 Mg Tablet PO 650 mg Q6H PRN PRN Administration Pain Score 1-10 Aspirin 81 mg 07/14/25 08:00 07/16/25 08:46 Aspirin 81 Mg Tab.Chew PO 81 mg BREAKFAST BARRY Administration Atorvastatin Calcium 80 mg 07/13/25 22:00 07/16/25 21:13 Atorvastatin Calcium 80 Mg Tablet PO 80 mg QHS BARRY Administration Bisacodyl 10 mg 07/13/25 16:28 Bisacodyl 10 Mg Suppository RC X1 PRN Constipation Clopidogrel Bisulfate 75 mg 07/14/25 10:00 07/16/25 08:47 Clopidogrel Bisulfate 75 Mg Tablet PO 07/31/25 19:02 75 mg DAILY BARRY Administration Compound Med 2 click 07/14/25 11:30 07/16/25 21:14 Arthritis Pain Compound 60 Click Tube TOPICAL 2 click BID BARRY Administration Protocol Dorzolamide/Timolol 1 drp 07/13/25 22:00 07/17/25 06:28 Dorzolamide Hcl/Timolol 10 Ml Bottle EACH EYE 1 drp Q8 BARRY Administration Enoxaparin Sodium 40 mg 07/15/25 11:30 07/16/25 08:46 Enoxaparin 40 Mg/0.4 Ml Syringe SC 40 mg DAILY BARRY Administration Piperacillin Sod/Tazobactam 50 mls @ 12.5 mls/hr 07/16/25 18:00 07/17/25 08:06 Sod 3.375 gm/ Sodium Chloride IV 12.5 mls/hr Q8 BARRY Administration Vancomycin IV-PHARMACY TO DOSE 500 mls @ 250 mls/hr 07/16/25 18:00 1 each/ Sodium Chloride IV X1 PRN Rx to Dose Protocol Sodium Chloride 250 mls @ 15 mls/hr 07/16/25 17:34 07/17/25 06:32 IV 15 mls/hr .[id number] PRN Administration Saline Flush Sodium Chloride 250 mls @ 15 mls/hr 07/16/25 17:34 IV .[id number] PRN Additional IVPB Infusion Vancomycin HCl 500 mg/ Sodium 110 mls @ 100 mls/hr 07/17/25 06:00 07/17/25 07:51 Chloride IV Infused Q12H BARRY Infusion Sodium Chloride 1,000 mls @ 15 mls/hr 07/17/25 08:50 07/17/25 08:50 IV 15 mls/hr .Q48H BARRY Administration Icosapent Ethyl 2 gm 07/14/25 17:00 07/16/25 17:47 Icosapent Ethyl 1 Gm Capsule PO 2 gm BIDCM BARRY Administration Magnesium Hydroxide 30 ml 07/13/25 16:28 07/15/25 05:46 Magnesium Hydroxide 30 Ml Udc PO 30 ml X1 PRN Administration Constipation Mirtazapine 7.5 mg 07/13/25 22:00 07/16/25 21:12 Mirtazapine 15 Mg Tablet PO 7.5 mg QHS BARRY Administration Multivitamins/Minerals 1 tablet 07/14/25 08:00 07/16/25 08:46 Multivitamins,Ther W-Minerals Tablet PO 1 tablet BREAKFAST BARRY Administration Niacin 500 mg 07/14/25 22:00 07/16/25 21:13 Niacin Sa 500 Mg Tablet PO 500 mg QHS BARRY Administration Senna/Docusate Sodium 2 tablet 07/13/25 22:00 07/16/25 21:10 Senna/Docusate Sodium 1 Tablet PO Not Given BID BARRY Sodium Chloride 10 - 40 ml 07/14/25 13:02 07/17/25 06:33 0.9% Saline Lock 10 Ml Syringe IV 10 ml UD PRN Administration SALINE FLUSH Tramadol HCl 50 mg 07/15/25 15:45 07/16/25 21:13 Tramadol 50 Mg Tablet PO 50 mg Q6H PRN PRN Administration pain not relieved with Tylenol Tramadol HCl 25 - 50 mg 07/16/25 17:34 Tramadol 50 Mg Tablet PO Q6H PRN PRN Pain Score 1-3 Vancomycin Protocol 1 lab 07/18/25 04:30 Vancomycin Trough/Random Due 07/18/25 06:30 DAILY [facility] PFSH Medical History Left shoulder pain Glaucoma HLD (hyperlipidemia) HTN (hypertension) Poor dental hygiene Depression Dyslipidemia Stroke Home Medications ?Medication ?Instructions ?Recorded ?Last Taken ?Type aspirin 81 mg tablet 81 mg PO DAILY heart health 07/13/25 07/13/25 History atorvastatin 80 mg tablet (Lipitor) 80 mg PO QHS anand sterol 07/13/25 07/12/25 History neudqja-kdbeejuns-zbzq 333 mg-133 1 tab PO DAILY suppl ement 07/13/25 Unknown History mg-5 mg tablet clopidogrel 75 mg tablet (Plavix) 75 mg PO DAILY heart 07/13/25 07/13/25 History dorzolamide 22.3 mg-timolol 6.8 1 drp EACH EYE Q8H eye s 07/13/25 07/13/25 History mg/mL eye drops (Cosopt) mirtazapine 15 mg tablet (Remeron) 7.5 mg PO QHS apati te 07/13/25 Unknown History multivitamin with minerals-folic 1 tab PO DAILY supple ment 07/13/25 Unknown History acid 80 mcg chewable tablet (Centrum Adult 50 Plus) Allergy/AdvReac Type Severity Reaction Status Date / Time No Known Allergies Allergy Verified 07/13/25 16:13 Family History Mother Breast cancer CVA (cerebral vascular accident) Diabetes type 2 Osteoporosis Surgical History Hx of cholecystectomy H/O: hysterectomy History of oophorectomy Social History household members: spouse and other details: Husbands name is Augustus. housing: other details: 2 story house with bedroom and BR on the second floor. number of children: 3 Smoking Status: Never smoker alcohol intake: never substance use type: does not use Review of Systems (Anesthesia) ROS Narrative System reviewed and no additional complaints, except as documented.
--- NOTE | 2025-07-17 09:07 | NURSING ---
Jatin provided update that patient is down for surgery.
[2025-07-17] MEDS: 0.9% Normal Saline (1000mL) 800 ML IV (09:48)
--- NOTE | 2025-07-17 09:50 | OP.PCM_ITS ---
Operative Report (Standard) Operative Information Date of Procedure: 07/17/25 Pre-Operative Diagnosis: Septic right wrist and index finger metacarpal phalangeal (MCP) joint Post-Operative Diagnosis: Same Surgery/Procedure Performed: 1) dorsal right wrist arthrotomy for septic joint washout 2) dorsal right index finger MCP joint arthrotomy for septic joint washout shoer: Yes Patient Admitting Representative: Britt [place] Tasks completed by assistant front end manager: Retracting Type of Anesthesia: General/Supplemental (10 cc of quarter percent Marcaine) RN Documented Start/Stop Times: Operation Date: 07/17/25 09:40 Case Time Into Pre-Op 07/17/25 08:47 Anesthesia Start 07/17/25 09:38 Into Room 07/17/25 09:38 Procedure Start 07/17/25 10:05 Procedure Start Time: 10:05 Procedure Stop Time: 10:45 Select all DRAINS/GRAFTS/IMPLANTS that apply: Drains ([facility] drain for the index finger and the wrist) Drain details: To stent open Estimated Blood Loss: 20 cc Specimen collected: Yes Description of specimen(s) removed: Cultures from the right wrist and from the right index finger MCP joint Description of surgery: Indications: Patient is a delightful 70-year-old woman who recently had a stroke leading to right sided weakness. She has been admitted to acute rehab, was noted to have pneumonia. She now has 2 days of worsening right wrist pain and index finger MCP joint pain consistent with septic arthritis. She presents today for washout in the operating room. I discussed with her the risks, benefits, and alternatives to the procedure and she elected to proceed. Procedure details: Patient was correctly identified in preoperative holding and marked. She was taken back to the operating room where she was administered general anesthesia and prepped and draped in sterile fashion. Proper timeout was performed. The tourniquet was inflated to 250 mmHg. An incision was made over the 3 4 interval region longitudinally on the dorsum of the right wrist. Dissection was taken to the extensor retinaculum with care taken to prevent injury to any cutaneous nerves. The retinaculum was entered in a stairstep fashion and the e xtensor tendons were retracted. The joint capsule was identified and opened with a ligament sparing approach through the dorsal anterior carpal ligament and the dorsal radial triquetral ligament. The joint capsule was entered and there was purulence. The purulence was washed out with copious amounts of normal saline after it was cultured. Irrisept was placed as well. The capsule was then closed with 3-0 PDS and a Lali drain was tunneled beneath the closure to leave the joint open for soaks. The extensor inoculum was then repaired as well with a 3-0 PDS. The skin was then closed with 4-0 nylon horizontal mattress sutures. The Lali was sutured into place with a 2-0 silk suture out of the incision. A dorsal longitudinal incision was then made over the extensor tendon at the MCP joint of the right index finger. The tendon was split longitudinally with a 15 blade scalpel (again with dissection care was taken to prevent damage to any cutaneous nerves). The joint was then entered through a dorsal arthrotomy. There was purulence in the joint and it was washed out with copious amounts normal saline and Irrisept after cultures were obtained. A Lali drain was then tunneled into the joint exiting the wound. Lali was sutured into place with a 2-0 silk suture out of the incision. Incision was further closed with a horizontal mattress 4-0 nylon suture. Patient tolerated the procedure well. She was wrapped in a bulky dressing. She was awakened and taken back in stable condition. Postoperative plan: 3 times per day Dial soap soaks. I will see her on the floor. Continue broad-spectrum antibiotics and follow-up the cultures. Rest and elevation for the right upper extremity Surgical Findings: Purulence within the right index finger MCP joint and the right wrist joint. The joint capsules were very inflamed and friable. Complications Complications: No Admit VTE Documentation VTE Mechan Device Prophylaxis: SCD's
[2025-07-17] MEDS: Lidocaine 1% (5 ml sdv) 5 ML Vial IV (09:51)
[2025-07-17] MEDS: fentaNYL 100 MCG/2 ML Ampul 200 MCG IV (10:47)
[2025-07-17] MEDS: Bupiv/Epi 0.25% 30 ML Vial (10:52)
--- NOTE | 2025-07-17 11:17 | PCM.POST.ANE ---
Anesthesia: Postop Eval I Current Vital Signs Temperature: 97.7 F Pulse Rate: 77 Blood Pressure: 154/69 Respiratory Rate: 16 Pulse Ox: 93 Oxygen Delivery Method: Room Air Assessment Airway patent: Yes Spontaneous unlabored respirations: Yes Mental status: Awake and Calm nausea: No Vomiting: No Anesthesia Complication: No Fluid Hydration Crystalloid volume administer (ml): 800 Total IV fluid infused: 800 Progress Note Anesthesia document: Postop Eval 1 completed: Yes
--- NOTE | 2025-07-17 12:01 | PCM.POSTANE2 ---
Anesthesia Postop Eval I Sum Postop Eval Completion status Anesthesia document: Postop Eval 1 completed: Yes Anesthesia Postop Eval I Summary Anesthesia Postop Eval I Summary: Anesthesia Postop Eval I: Assessment Summary Airway patent Yes 07/17/25 11:18 Spontaneous unlabored Yes 07/17/25 11:18 respirations Mental status Awake,Calm 07/17/25 11:18 nausea No 07/17/25 11:18 Vomiting No 07/17/25 11:18 Anesthesia Postop Eval I: Fluid Summary Crystalloid volume administer 800 07/17/25 11:18 (ml) Colloids volume administered ( ml) Blood Product volume administered (ml) Total IV fluid infused 800 07/17/25 11:18 Anesthesia Postop Eval I: Summary Notes Anesthesia Complication No 07/17/25 11:18 Anesthesia Complication Comment: Post-operative progress note Anesthesia: Postop Eval II Evaluation Mental status: Awake and Calm Pain Level: 1 nausea: No Vomiting: No Complications Anesthesia Complication: No
--- NOTE | 2025-07-17 13:05 | NURSING ---
Patient returned from surgery at 1200 and appeared drowsy but stable. Dr. Smith paged and she can be lifted from NPO restriction. Given prn tramadol at 1300 and patient refused to have tylenol offered first even though order specified due to severe pain and given tramadol 50 mg prn. PACU nurse reported the would update the .
[2025-07-17] MEDS: Senna/Docusate Sodium 1 Tablet 2 TABLET PO ×2 (13:16→21:08)
[2025-07-17] MEDS: Niacin SA 500 MG Tablet PO (21:07)
[2025-07-17] MEDS: Arthritis Pain Compound 60 CLICK TUBE TOPICAL (21:08)
[2025-07-18] MEDS: Vancomycin Trough/Random Due 1 LAB MC (05:36)
[2025-07-18] MEDS: Piperacil/Tazobactam 3.375 GM in 0.9% Normal Saline (50mL MB+) 50 ML IV ×3 (05:37→20:57)
[2025-07-18] MEDS: Dorzolamide HCL/Timolol 10 ml Bottle 1 DRP EACH EYE ×3 (05:38→20:49)
[2025-07-18] MEDS: 0.9% Saline Lock 10 ML Syringe IV ×2 (05:38→08:58)
[2025-07-18 05:58] VITALS: BP 131/71; PULSE 56; RESP 17; TEMP 36.5; O2SAT 97
[2025-07-18 07:05] LABS: Vancomycin, Trough Level 4.6 ug/mL (5.0-15.0)
--- NOTE | 2025-07-18 08:00 | PCM.RX.CS ---
Consult Antibiotic Management Pharmacy has been consulted to manage selected antibiotic: Vancomycin Type of Intervention Type of Consult: Follow-up Labs Labs: Sodium 136 mmol/L (133-145) 07/16/25 07:11 Potassium 3.9 mmol/L (3.3-5.1) 07/16/25 07:11 Chloride 105 mmol/L (98-108) 07/16/25 07:11 Carbon Dioxide 21.3 mmol/L (21.0-32.0) 07/16/25 07:11 Anion Gap 9 (5-15) 07/16/25 07:11 BUN 9 mg/dL (4-19) 07/16/25 07:11 Creatinine 0.39 mg/dL (0.70-1.20) L 07/16/25 07:11 Est GFR (MDRD) Non-Af 107 (>60) 07/16/25 07:11 BUN/Creatinine Ratio 21.7 RATIO (10-20) H 07/16/25 07:11 Glucose 123 mg/dL (70-99) H 07/16/25 07:11 Vancomycin Trough 4.6 ug/mL (5.0-15.0) L 07/18/25 05:25 Goal Trough Goal Trough: 15-20 mcg/mL Pharmacy Plan for Drug Dosing Pharmacy Plan for Drug Dosing: VANCOMYCIN LEVEL RECEIVED Current Vancomycin Dose: 500mg IV Q12h Number of Doses Received: 3 (loading dose + 2 scheduled) Vancomycin Level: 15-20 Hours Since Last Dose: 11hr Renal Function: SCr 0.39 (07/16) Renal Function Trend: nnl Lab/Micro: Cultures pending Vancomycin Plan/Comments: Patient had a trough drawn which resulted in a value of 4.6 (goal 15-20). Patient's trough is significantly below goal. Will stop current dose of vancomycin and increase dose to 1000mg IV Q8h for a predicted trough value of 15.6. Will recheck a trough prior to 4th dose of new regimen. Pending Level: 07/19/25 @0730 Pharmacy Service will continue to monitor and adjust dosing as required.
--- NOTE | 2025-07-18 08:00 | PCM.PN.SRG ---
Subjective Subjective Doing better. Reports better pain control. Objective Data Objective Data Vital Signs: Vital Signs Temp Pulse Resp BP Pulse Ox O2 Del Method O2 Flow Rate 97.7 F L 56 L 17 131/71 H 97 Nasal Cannula 2 07/18/25 05:58 07/18/25 05:58 07/18/25 05:58 07/18/25 05:58 07/18/25 05:58 07/18/25 05:58 07/18/25 05:58 FiO2 21 07/17/25 09:07 Oxygen Flow Rate (L/min) 2 Oxygen Delivery Method Nasal Cannula Weight: 110 lb 14.28 oz Body Mass Index (BMI) 20.2 Intake & Output: Intake and Output for Last 24 Hours 07/16/25 07/17/25 07/18/25 23:59 23:59 23:59 Intake Total 2445 / 2620 2188.00 / 2188.00 200 / 200 Output Total 5 / 5 Balance 2445 / 2620 2183.00 / 2183.00 200 / 200 Lab / Micro Data 07/16/25 07:11 07/16/25 07:11 Labs: Laboratory Results - last 24 hr 07/18/25 05:25: Vancomycin Trough 4.6 L Physical Exam Narrative Right upper Extremity Inspection: Drains in place. No purulence. Palpation: No pain with axial loading of the MCP joint of the right index finger and the wrist. Motor: Unable to make a full fist secondary to pain from the incisions, but moving the hand/wrist. Sensory: Intact to light touch on the radial and ulnar borders. Vascular: Finger tips are warm and well perfused with <2 second capillary refill. Assessment & Plan Assessment/Plan (1) Septic finger of right hand: (2) Septic arthritis: PLAN: Plan Improved exam Continue Vanc/Zosyn until cultures finalize No further surgical intervention planned Drains likely out tomorrow Continue TID Dial Soap soaks and bulky gauze dressing.
[2025-07-18] MEDS: Senna/Docusate Sodium 1 Tablet 2 TABLET PO (08:46)
[2025-07-18] MEDS: Arthritis Pain Compound 60 CLICK TUBE TOPICAL ×2 (08:48→20:49)
[2025-07-18] MEDS: Vancomycin HCl 1,000 MG in 0.9% Normal Saline (250mL Bag) 250 ML 250 MG IV ×2 (08:48→16:55)
--- NOTE | 2025-07-18 09:32 | PN_ITS ---
Subjective Subjective Day #3 vancomycin and Zosyn Postoperative day #1-status post washout right wrist and washout R index finger MCP Afebrile VSS - Maintaining appropriate oxygen saturation on RA Oral intake - FOOD good FLUIDS improving. Yesterday she had 1460 cc p.o. Discussed with nursing - no problems that need addressed. Remains incontinent of urine so the I&O are not accurate. Reviewed the THERAPY notes Medication list reviewed. Has not taken any Tramadol. Pain is controlled with PRN Tylenol Taken to the OR yesterday by Dr. Smith for wash out of the R wrist. Unfortunately the joint aspiration fluid obtained Saturday prior to antibiotics was mishandled by lab and the specimen was lost. Charley tells me the pain is lessening. Charley denies cough, SOB, CP, diarrhea, N/V/abd pain. Objective Data Objective Data Vital Signs: Vital Signs Temp Pulse Resp BP Pulse Ox O2 Del Method O2 Flow Rate 97.7 F L 56 L 17 131/71 H 97 Nasal Cannula 2 07/18/25 05:58 07/18/25 05:58 07/18/25 05:58 07/18/25 05:58 07/18/25 05:58 07/18/25 05:58 07/18/25 05:58 FiO2 21 07/17/25 09:07 Oxygen Flow Rate (L/min) 2 Oxygen Delivery Method Nasal Cannula Weight: 110 lb 14.28 oz Body Mass Index (BMI) 20.2 Intake & Output: Intake and Output for Last 24 Hours 07/16/25 07/17/25 07/18/25 23:59 23:59 23:59 Intake Total 2445 / 2620 2188.00 / 2188.00 320 / 320 Output Total 5 / 5 Balance 2445 / 2620 2183.00 / 2183.00 320 / 320 Lab / Micro Data 07/16/25 07:11 07/16/25 07:11 Labs: Laboratory Results - last 24 hr 07/18/25 05:25: Vancomycin Trough 4.6 L Micro: Microbiology 07/17/25 Unknown Tissue - Incision site Wound Culture - Preliminary No growth-Final to follow 07/17/25 Unknown Incision/Surgical Site Wound Culture - Preliminary No growth-Final to follow 07/17/25 Unknown Incision/Surgical Site Wound Culture - Preliminary No growth-Final to follow 07/17/25 Unknown Incision/Surgical Site Wound Culture - Preliminary No growth-Final to follow Physical Exam Const alert Constitutional Narrative: Soaking her wrist lying in bed. Dr. Smith was in to check the incision this morning. General Appearance: cooperative Resp clear to auscultation bilaterally Resp Narrative: Diminished in the bases......unchanged. I think this is more related to poor effort. Cardio regular rate, regular rhythm and no gallops GI normal to inspection, nondistended, normoactive bowel sounds, soft to palpation and non-tender Skin Wound Narrative: the incision R wrist intact. Drains are in place. Erythema is markedly improved. Less swollen. Intact sensation in the hand. Assessment & Plan Assessment/Plan (1) Septic arthritis: QUALIFIERS: Septic arthritis location: wrist Septic arthritis organism: due to unspecified organism Laterality: right Qualified Code(s): M 00.9 - Pyogenic arthritis, unspecified (2) Pleural effusion, left: (3) Debility: (4) Ischemic cerebrovascular accident (CVA): (5) Dysarthria due to acute cerebrovascular accident (CVA): (6) Hemiparesis of right dominant side due to cerebral infarction: (7) HTN (hypertension): QUALIFIERS: Hypertension type: primary hypertension Qualified Code(s): I10 - Essential (primary) hypertension (8) HLD (hyperlipidemia): QUALIFIERS: Hyperlipidemia type: mixed hyperlipidemia Qualified Code(s): E78.2 - Mixed hyperlipidemia (9) Glaucoma: QUALIFIERS: Glaucoma type: unspecified Laterality: bilateral Q ualified Code(s): H40.9 - Unspecified glaucoma (10) Ankle edema: (11) Poor dental hygiene: (12) Depression: QUALIFIERS: Depression Type: unspecified Qualified Code(s): F32.A - Depression, unspecified (13) Grade I diastolic dysfunction: (14) Low HDL (under 40): (15) Hypertriglyceridemia: (16) Left shoulder pain: QUALIFIERS: Chronicity: chronic Qualified Code(s): M25.512 - Pain in left shoulder; G89.29 - Other chronic pain PLAN: Plan 1. Continue therapy 2. CBC with differential, ESR, CRP, CMP, magnesium and phosphorus tomorrow 3. Continue vancomycin and Zosyn 4. Consult Dr. Martinez in the AM 5. results from cultures done at the time of surgery yesterday are pending. Charges/Coding Visit Charges Inpatient E&M: 32311 Subs Hosp L1
[2025-07-18 10:31] VITALS: BMI 20.2
[2025-07-18 17:31] VITALS: BP 145/71; PULSE 64; RESP 16; TEMP 36.3; O2SAT 94
[2025-07-18] MEDS: Niacin SA 500 MG Tablet PO (20:52)
[2025-07-19] MEDS: Vancomycin HCl 1,000 MG in 0.9% Normal Saline (250mL Bag) 250 ML 250 MG IV ×3 (01:20→16:21)
[2025-07-19 02:03] VITALS: BMI 20.2
[2025-07-19] MEDS: Dorzolamide HCL/Timolol 10 ml Bottle 1 DRP EACH EYE ×3 (05:29→21:28)
[2025-07-19] MEDS: Piperacil/Tazobactam 3.375 GM in 0.9% Normal Saline (50mL MB+) 50 ML IV (05:30)
[2025-07-19 06:00] VITALS: BP 122/58; PULSE 67; RESP 16; TEMP 36.4; O2SAT 95
--- NOTE | 2025-07-19 08:11 | PN.SURG_ITS ---
Subjective Subjective Pain improved. Compliant with soaks and with rest/elevation. Objective Data Objective Data Vital Signs: Vital Signs Temp Pulse Resp BP Pulse Ox O2 Del Method O2 Flow Rate 97.6 F L 67 16 122/58 H 95 Nasal Cannula 2 07/19/25 06:00 07/19/25 06:00 07/19/25 06:00 07/19/25 06:00 07/19/25 06:00 07/19/25 06:00 07/19/25 06:00 FiO2 21 07/17/25 09:07 Oxygen Flow Rate (L/min) 2 Oxygen Delivery Method Nasal Cannula Weight: 110 lb 14.28 oz Body Mass Index (BMI) 20.2 Intake & Output: Intake and Output for Last 24 Hours 07/17/25 07/18/25 07/19/25 23:59 23:59 23:59 Intake Total 2188.00 / 2188.00 2530.25 / 2530.25 320 / 320 Output Total 5 / 5 300 / 300 Balance 2183.00 / 2183.00 2230.25 / 2230.25 320 / 320 Lab / Micro Data 07/16/25 07:11 07/16/25 07:11 Micro: Microbiology 07/17/25 Unknown Incision/Surgical Site Gram Stain - Final 07/17/25 Unknown Incision/Surgical Site Wound Culture - Preliminary 07/18/25 15:40 Stool Stool Occult Blood (MAURICIO) - Final 07/17/25 Unknown Tissue - Incision site Gram Stain - Final 07/17/25 Unknown Tissue - Incision site Wound Culture - Preliminary No growth-Final to follow 07/17/25 Unknown Incision/Surgical Site Gram Stain - Final 07/17/25 Unknown Incision/Surgical Site Wound Culture - Preliminary No growth-Final to follow 07/17/25 Unknown Incision/Surgical Site Gram Stain - Final 07/17/25 Unknown Incision/Surgical Site Wound Culture - Preliminary No growth-Final to follow Physical Exam Narrative Right upper Extremity Inspection: Drains in place. No purulence. Less swelling. Drains both removed. Palpation: No pain with axial loading of the MCP joint of the right index finger and the wrist. Continues to improve. Motor: Unable to make a full fist secondary to pain from the incisions, but moving the hand/wrist. Sensory: Intact to light touch on the radial and ulnar borders. Vascular: Finger tips are warm and well perfused with <2 second capillary refill. Assessment & Plan Assessment/Plan (1) Septic finger of right hand: (2) Septic arthritis: QUALIFIERS: Septic arthritis location: wrist Septic arthritis organism: due to unspecified organism Laterality: right Qualified Code(s): M 00.9 - Pyogenic arthritis, unspecified PLAN: Plan Drains removed on rounds Continue TID Dial Soap soaks as the wounds heal in Dry dressing F/u cultures. Continue elevation PSU to follow
[2025-07-19 08:20] LABS: Hematocrit 28.9 % (37-47); Hemoglobin 9.3 g/dL (12.0-15.0); Immature Granulocytes Count 0.190 X10^3/uL (0.0-0.0); Mean Corp Hgb Conc 32.2 g/dL (32-36); Mean Corpuscular Volume 89.2 fL (81-99); Mean Platelet Vol. 9.1 fl (6.2-12.0); NRBC Flagged by Analyzer 0 % (0-5); Platelet Count 475 K/mm3 (150-450); RBC Distribution Width CV 14.3 % (11.6-14.6); RBC Distribution Width SD 46.3 fl (35.1-43.9); Red Blood Count 3.24 M/mm3 (4.2-5.4); White Blood Count 10.0 K/mm3 (4.4-11.0)
[2025-07-19] MEDS: Arthritis Pain Compound 60 CLICK TUBE TOPICAL ×2 (08:49→21:28)
[2025-07-19 08:55] LABS: CRP 52.30 mg/L (0.0-3.0); Magnesium 2.1 mg/dL (1.5-2.2); Pro- Brain NATRIURETIC PEPTIDE 295 pg/mL (<=900)
[2025-07-19 08:56] LABS: AST(SGOT) 20 U/L (<=31); Alanine Aminotransfer ALT/SGPT 30 U/L (<=34); Albumin, Serum 2.6 g/dL (3.4-4.8); Alkaline Phosphatase 79 U/L (35-104); Anion Gap 9 (5-15); BUN 9 mg/dL (4-19); BUN/Creat Ratio 22.5 RATIO (10-20); Calcium,Total 8.9 mg/dL (7.6-11.0); Carbon Dioxide 23.3 mmol/L (21.0-32.0); Chloride 106 mmol/L (98-108); Estimated Creatinine Clearance 51.75 ml/min (50-250); Globulin 2.6 g/dL (2.2-4.2); Glucose 103 mg/dL (70-99); Potassium 4.0 mmol/L (3.3-5.1)
[2025-07-19] MEDS: 0.9% Saline Lock 10 ML Syringe IV ×2 (08:59→16:22)
--- NOTE | 2025-07-19 09:10 | RAD_ITS ---
PROCEDURE: CHEST PA AND LATERAL 07/19/2025 REASON FOR EXAM: LEFT PLEURAL EFFUSION TECHNIQUE: CHEST PA AND LATERAL COMPARISON: Chest x-ray of 07/16/2025. RAD/Chest PA and Lateral IMPRESSION: Right upper quadrant abdominal surgical clips are again seen. Small right and probable smaller right pleural effusions are seen, probably sli ghtly increased on the left compared with the prior study of 07/16/2025. No evidence of pulmonary edema. Mild airspace disease is seen of the lung bases. Although most probably due to atelectasis, cannot exclude the presence of pneumonitis. No pneumothorax is seen. The cardiomediastinal silhouette is stable, without evidence of cardiomegaly. No interval osseous change is seen. Reading Location: [place] [id number]
--- NOTE | 2025-07-19 09:14 | PN_ITS ---
Subjective Subjective Day #4 vancomycin and Zosyn Afebrile VSS -blood pressure is controlled. Heart rate is within normal limits. Maintaining appropriate oxygen saturation on RA Oral intake - FOOD good FLUIDS Discussed with nursing -she continues to be incontinent of urine and stool. Last bowel movement was 07/18/2025. Reviewed the THERAPY notes Medication list reviewed. All lab from today was personally reviewed. The white blood cell count is 10 with 60% neutrophils and 1.9% immature granulocytes. Hemoglobin is 9.3, down from 10.8 on 07/16/2025 however she has received IV fluids since then this may be secondary to dilution. Platelets are mildly elevated at 475,000 which is likely secondary to infection/inflammation. The ESR is down to 22 and the CRP is down to 52.3. Sodium is 138 and the potassium is 4.0. The BUN is 9 and the creatinine is stable at 0.42. Calcium, phosphorus, magnesium are all within normal limits. LFTs are unremarkable. The BNP is 295 which is within normal limits. Blood culture had no growth in 24H. I reviewed the CXR and she has a slight increase in the L pleural effusion. there is also blunting of the R costophrenic angle. There is no PVC. Objective Data Objective Data Vital Signs: Vital Signs Temp Pulse Resp BP Pulse Ox O2 Del Method O2 Flow Rate 97.6 F L 67 16 122/58 H 95 Nasal Cannula 2 07/19/25 06:00 07/19/25 06:00 07/19/25 06:00 07/19/25 06:00 07/19/25 06:00 07/19/25 06:00 07/19/25 06:00 FiO2 21 07/17/25 09:07 Oxygen Flow Rate (L/min) 2 Oxygen Delivery Method Nasal Cannula Weight: 110 lb 14.28 oz Body Mass Index (BMI) 20.2 Intake & Output: Intake and Output for Last 24 Hours 07/17/25 07/18/25 07/19/25 23:59 23:59 23:59 Intake Total 2188.00 / 2188.00 2530.25 / 2530.25 320 / 320 Output Total 5 / 5 300 / 300 Balance 2183.00 / 2183.00 2230.25 / 2230.25 320 / 320 Lab / Micro Data 07/19/25 07:30 07/19/25 07:30 Labs: Laboratory Results - last 24 hr 07/19/25 07:30: WBC 10.0, RBC 3.24 L, Hgb 9.3 L, Hct 28.9 L, MCV 89.2, MCH 28.7, MCHC 32.2, RDW Std Deviation 46.3 H, RDW Coeff of Johnny 14.3, Plt Count 475 H, MPV 9.1, Immature Gran % (Auto) 1.900 H, Neut % (Auto) 60.3, Lymph % (Auto) 23.3, M jenny % (Auto) 10.7 H, Eos % (Auto) 3.0, Baso % (Auto) 0.8, Absolute Neuts (auto) 6.1, Absolute Lymphs (auto) 2.34, Nucleated RBC % 0, ESR 22, Sodium 138, Potassium 4.0, Chloride 106, Carbon Dioxide 23.3, Anion Gap 9, BUN 9, Creatinine 0.42 L, Estim Creat Clear Calc 51.75, Est GFR (MDRD) Non-Af 105, BUN/Creatinine Ratio 22.5 H, Glucose 103 H, Calcium 8.9, Phosphorus 2.8, Magnesium 2.1, Total Bilirubin < 0.15, AST 20, ALT 30, Alkaline Phosphatase 79, C-React Prot Ext Range 52.30 H, NT pro BNP II 295, Total Protein 5.2 L, Albumin 2.6 L, Globulin 2.6, Albumin/Globulin Ratio 1.0 Micro: Microbiology 07/16/25 17:35 Blood Culture (Wb) - Left Hand Blood Culture - Preliminary No growth in 48 hours. 07/17/25 Unknown Incision/Surgical Site Gram Stain - Final 07/17/25 Unknown Incision/Surgical Site Wound Culture - Preliminary No growth-Final to follow 07/17/25 Unknown Incision/Surgical Site Anaerobic Culture - Preliminary No growth in 48 hours. 07/17/25 Unknown Tissue - Incision site Gram Stain - Final 07/17/25 Unknown Tissue - Incision site Wound Culture - Preliminary No growth-Final to follow 07/17/25 Unknown Tissue - Incision site Anaerobic Culture - Preliminary No growth in 48 hours. 07/17/25 Unknown Incision/Surgical Site Gram Stain - Final 07/17/25 Unknown Incision/Surgical Site Wound Culture - Preliminary 07/17/25 Unknown Incision/Surgical Site Anaerobic Culture - Preliminary No growth in 48 hours. 07/17/25 Unknown Incision/Surgical Site Gram Stain - Final 07/17/25 Unknown Incision/Surgical Site Wound Culture - Preliminary No growth-Final to follow 07/17/25 Unknown Incision/Surgical Site Anaerobic Culture - Preliminary No growth in 48 hours. 07/18/25 15:40 Stool Stool Occult Blood (MAURICIO) - Final Physical Exam Const alert Constitutional Narrative: sppech is a little more clear and I can understand her more easily. Neck supple Resp normal respiratory effort Resp Narrative: diminished, michelle in the bases. No wheezes. She had a few crackles in the bases initially but, these resolved after a few deep breaths. Better air exchange today and better effort. Effort and Inspection: Negative for tachypneic or respiratory distress Cardio regular rate, regular rhythm, no rub and no gallops Cardio Narrative: No ectopy. 1/6 systolic MM at the second R ICS with no radiation......may be due to anemia. Extremity no calf tenderness Extremity Narrative: No significant LE edema. MARYLOU hose are in place. The R wrist swelling has improved. Erythema is much better. The incisions are intact with no dehiscence. There is no purulent DC. She has better ROM and the pain is much better with axial loading.....which caused severe pain on Saturday. Skin General Skin Exam: no breakdown Rashes: rashes noted Psych cooperative and affect normal Psych Narrative: Making good eye contact with me. Appearance: appropriate Assessment & Plan Assessment/Plan (1) Septic arthritis: QUALIFIERS: Septic arthritis location: wrist Septic arthritis organism: due to unspecified organism Laterality: right Qualified Code(s): M 00.9 - Pyogenic arthritis, unspecified PLAN: R wrist. Went to OR on 07/16/[address] Smith. On Vanco and Zosyn. (2) Pleural effusion, left: PLAN: transudate or exudate? Is it is a exudate she would be at risk for developing and empyema. (3) Debility: (4) Ischemic cerebrovascular accident (CVA): (5) Dysarthria due to acute cerebrovascular accident (CVA): (6) Hemiparesis of right dominant side due to cerebral infarction: (7) HTN (hypertension): QUALIFIERS: Hypertension type: primary hypertension Qualified Code(s): I10 - Essential (primary) hypertension (8) HLD (hyperlipidemia): QUALIFIERS: Hyperlipidemia type: mixed hyperlipidemia Qualified Code(s): E78.2 - Mixed hyperlipidemia (9) Glaucoma: QUALIFIERS: Glaucoma type: unspecified Laterality: bilateral Q ualified Code(s): H40.9 - Unspecified glaucoma (10) Ankle edema: (11) Poor dental hygiene: (12) Depression: QUALIFIERS: Depression Type: unspecified Qualified Code(s): F32.A - Depression, unspecified (13) Grade I diastolic dysfunction: (14) Low HDL (under 40): (15) Hypertriglyceridemia: (16) Left shoulder pain: QUALIFIERS: Chronicity: chronic Qualified Code(s): M25.512 - Pain in left shoulder; G89.29 - Other chronic pain PLAN: Plan 1. Continue therapy 2. Diagnostic thoracentesis today-lab ordered 3. Consult Dr. Martinez for suspected pneumonia left lower lung with possible empyema. If it is an exudate should we get an ECHO? She would have had 2 separate sites of infection and this means she was likely bacteremic at some point. 4. The drains were removed by Dr. Smith today. Sutures are intact. Will continue Dial soap soaks 3 times daily. Charges/Coding Visit Charges Inpatient E&M: 04281 Subs Hosp L2
[2025-07-19 09:29] LABS: Vancomycin, Trough Level 19.0 ug/mL (5.0-15.0)
--- NOTE | 2025-07-19 09:38 | PCM.RX.CS ---
Consult Antibiotic Management Pharmacy has been consulted to manage selected antibiotic: Vancomycin Type of Intervention Type of Consult: Follow-up Suspected Infection Suspected Infection: Other (SEPTIC ARTHRITIS) Prior Doses of Antibiotics Prior Doses of Antibiotics Received/Current Regimen: Vancomycin 1000 mg Q8H last dose given 07/19/25 @ 0120 Labs Labs: Sodium 138 mmol/L (133-145) 07/19/25 07:30 Potassium 4.0 mmol/L (3.3-5.1) 07/19/25 07:30 Chloride 106 mmol/L (98-108) 07/19/25 07:30 Carbon Dioxide 23.3 mmol/L (21.0-32.0) 07/19/25 07:30 Anion Gap 9 (5-15) 07/19/25 07:30 BUN 9 mg/dL (4-19) 07/19/25 07:30 Creatinine 0.42 mg/dL (0.70-1.20) L 07/19/25 07:30 Est GFR (MDRD) Non-Af 105 (>60) 07/19/25 07:30 BUN/Creatinine Ratio 22.5 RATIO (10-20) H 07/19/25 07:30 Glucose 103 mg/dL (70-99) H 07/19/25 07:30 Vancomycin Trough 19.0 ug/mL (5.0-15.0) H 07/19/25 07:30 Microbiology Microbiology: Microbiology 07/16/25 17:35 Blood Culture (Wb) - Left Hand Blood Culture - Preliminary No growth in 48 hours. 07/17/25 Unknown Incision/Surgical Site Gram Stain - Final 07/17/25 Unknown Incision/Surgical Site Wound Culture - Preliminary No growth-Final to follow 07/17/25 Unknown Incision/Surgical Site Anaerobic Culture - Preliminary No growth in 48 hours. 07/17/25 Unknown Tissue - Incision site Gram Stain - Final 07/17/25 Unknown Tissue - Incision site Wound Culture - Preliminary No growth-Final to follow 07/17/25 Unknown Tissue - Incision site Anaerobic Culture - Preliminary No growth in 48 hours. 07/17/25 Unknown Incision/Surgical Site Gram Stain - Final 07/17/25 Unknown Incision/Surgical Site Wound Culture - Preliminary 07/17/25 Unknown Incision/Surgical Site Anaerobic Culture - Preliminary No growth in 48 hours. 07/17/25 Unknown Incision/Surgical Site Gram Stain - Final 07/17/25 Unknown Incision/Surgical Site Wound Culture - Preliminary No growth-Final to follow 07/17/25 Unknown Incision/Surgical Site Anaerobic Culture - Preliminary No growth in 48 hours. 07/18/25 15:40 Stool Stool Occult Blood (MAURICIO) - Final Dosing Weight Weight used for dosin lb 14.28 oz Estimated Creatinine Clearance Estimated Creatinine Clearance: ~ 52 Goal Trough Goal Trough: 15-20 mcg/mL Pharmacy Plan for Drug Dosing Pharmacy Plan for Drug Dosing: Vancomycin trough = 19.0 drawn 6 hours after last dose, continue current dosing, trough in 2 days. Pharmacy Service will continue to monitor and adjust dosing as required. Follow-Up Labs Follow-Up Labs: Trough: Vancomycin Date/Time Labs Ordered Labs to be done on [date and time ordered]: 07/21/25 @ 3450
[2025-07-19] MEDS: Ceftriaxone 2 GM in 0.9% Normal Saline (50mL MB+) 50 ML IV (12:24)
[2025-07-19 13:08] LABS: ANTINUCLEAR ANTIBODIES DIRECT Negative (Negative)
[2025-07-19 13:33] VITALS: BMI 20.2
--- NOTE | 2025-07-19 14:15 | PCM.CONS.GEN ---
Assessment & Plan Assessment/Plan (1) Septic finger of right hand: PLAN: Surg cx pending. Will narrow to vanc/ceftriaxone. Thoracentesis planned. Will follow, thank you, d/w Dr. Cordova (2) Septic arthritis: QUALIFIERS: Septic arthritis location: wrist Septic arthritis organism: due to unspecified organism Laterality: right Qualified Code(s): M00.9 - Pyogenic arthritis, unspecified (3) Pleural effusion, left: HPI Consult Data Date of Consult: 07/19/25 HPI Narrative Reason for Consultation: septic arthritis HPI Narrative: RAYMOND BERRY, is a 70 F with h/o htn and glaucoma, admitted for stroke, discharge to rehab unit 07/13. Over a few days, developed progressive pain, redness, swelling of R wrist and index finger. No fever or chills, no h/o gout. Aspiration done 07/16, started on vanc/zosyn, then taken to OR by Dr. Smith 07/17 for I&D. Feeling better, no n/v/d, denies cough or SOB. Full ROS performed and neg except as noted above. [facility] Medical History Left shoulder pain Glaucoma HLD (hyperlipidemia) HTN (hypertension) Poor dental hygiene Depression Dyslipidemia Stroke Home Medications ?Medication ?Instructions ?Recorded ?Last Taken ?Type aspirin 81 mg tablet 81 mg PO DAILY heart health 07/13/25 07/13/25 History atorvastatin 80 mg tablet (Lipitor) 80 mg PO QHS cholesterol 07/13/25 07/12/25 History wvpxbce-flwddudkv-iiik 333 mg-133 1 tab PO DAILY supplement 07/13/25 Unknown History mg-5 mg tablet clopidogrel 75 mg tablet (Plavix) 75 mg PO DAILY heart 07/13/25 07/13/25 History dorzolamide 22.3 mg-timolol 6.8 1 drp EACH EYE Q8H eyes 07/13/25 07/13/25 History mg/mL eye drops (Cosopt) mirtazapine 15 mg tablet (Remeron) 7.5 mg PO QHS apatite 07/13/25 Unknown History multivitamin with minerals-folic 1 tab PO DAILY supplement 07/13/25 Unknown History acid 80 mcg chewable tablet (Centrum Adult 50 Plus) Allergy/AdvReac Type Severity Reaction Status Date / Time No Known Allergies Allergy Verified 07/13/25 16:13 Family History Mother Breast cancer CVA (cerebral vascular accident) Diabetes type 2 Osteoporosis Surgical History Hx of cholecystectomy H/O: hysterectomy History of oophorectomy Social History household members: spouse and other details: Husbands name is Augustus. housing: other details: 2 story house with bedroom and BR on the second floor. number of children: 3 Smoking Status: Never smoker alcohol intake: never substance use type: does not use Physical Exam Const alert, oriented x3 and no apparent distress General Appearance: cooperative HEENT normocephalic and head/scalp atraumatic Eyes PERRL and EOMs intact bilaterally Neck supple and No nodes Resp normal air movement and clear to auscultation bilaterally Cardio regular rate and regular rhythm GI soft to palpation, non-tender and non-distended Extremity General Extremity: Negative for edema Skin Skin Narrative: R hand wrapped Neuro CN's II-XII intact bilaterally Lab / Micro Data Attestation: I reviewed the patient's lab results. 07/19/25 07:30 07/19/25 07:30 Labs: Laboratory Results - last 24 hr 07/16/25 12:41: MARLO Screen Negative 07/19/25 07:30: WBC 10.0, RBC 3.24 L, Hgb 9.3 L, Hct 28.9 L, MCV 89.2, MCH 28.7, MCHC 32.2, RDW Std Deviation 46.3 H, RDW Coeff of Johnny 14.3, Plt Count 475 H, MPV 9.1, Immature Gran % (Auto) 1.900 H, Neut % (Auto) 60.3, Lymph % (Auto) 23.3, [place] % (Auto) 10.7 H, Eos % (Auto) 3.0, Baso % (Auto) 0.8, Absolute Neuts (auto) 6.1, Absolute Lymphs (auto) 2.34, Nucleated RBC % 0, ESR 22, Sodium 138, Potassium 4.0, Chloride 106, Carbon Dioxide 23.3, Anion Gap 9, BUN 9, Creatinine 0.42 L, Estim Creat Clear Calc 51.75, Est GFR (MDRD) Non-Af 105, BUN/Creatinine Ratio 22.5 H, Glucose 103 H, Calcium 8.9, Phosphorus 2.8, Magnesium 2.1, Total Bilirubin < 0.15, AST 20, ALT 30, Alkaline Phosphatase 79, C-React Prot Ext Range 52.30 H, NT pro BNP II 295, Total Protein 5.2 L, Albumin 2.6 L, Globulin 2.6, Albumin/Globulin Ratio 1.0, Vancomycin Trough 19.0 H Micro: Microbiology 07/16/25 17:35 Blood Culture (Wb) - Left Hand Blood Culture - Preliminary No growth in 48 hours. 07/17/25 Unknown Incision/Surgical Site Gram Stain - Final 07/17/25 Unknown Incision/Surgical Site Wound Culture - Preliminary No growth-Final to follow 07/17/25 Unknown Incision/Surgical Site Anaerobic Culture - Preliminary No growth in 48 hours. 07/17/25 Unknown Tissue - Incision site Gram Stain - Final 07/17/25 Unknown Tissue - Incision site Wound Culture - Preliminary No growth-Final to follow 07/17/25 Unknown Tissue - Incision site Anaerobic Culture - Preliminary No growth in 48 hours. 07/17/25 Unknown Incision/Surgical Site Gram Stain - Final 07/17/25 Unknown Incision/Surgical Site Wound Culture - Preliminary 07/17/25 Unknown Incision/Surgical Site Anaerobic Culture - Preliminary No growth in 48 hours. 07/17/25 Unknown Incision/Surgical Site Gram Stain - Final 07/17/25 Unknown Incision/Surgical Site Wound Culture - Preliminary No growth-Final to follow 07/17/25 Unknown Incision/Surgical Site Anaerobic Culture - Preliminary No growth in 48 hours. 07/18/25 15:40 Stool Stool Occult Blood (MAURICIO) - Final Imaging Radiology Impression Chest X-Ray 07/19/25 09:10 IMPRESSION: Right upper quadrant abdominal surgical clips are again seen. Small right and probable smaller right pleural effusions are seen, probably slightly increased on the left compared with the prior study of 07/16/2025. No evidence of pulmonary edema. Mild airspace disease is seen of the lung bases. Although most probably due to atelectasis, cannot exclude the presence of pneumonitis. No pneumothorax is seen. The cardiomediastinal silhouette is stable, without evidence of cardiomegaly. No interval osseous change is seen. Reading Location: [facility]
[2025-07-19 15:08] LABS: Cytoplasmic Ab (C-ANCA) <1:20 titer (Neg:<1:20); Perinuclear Ab (P-ANCA) <1:20 titer (Neg:<1:20)
[2025-07-19 18:00] VITALS: BP 129/62; PULSE 70; RESP 16; TEMP 36.5; O2SAT 96
[2025-07-19 21:25] VITALS: BP 128/67; PULSE 80; RESP 16; TEMP 37.1; O2SAT 93
[2025-07-19] MEDS: Lactobacillis Acidophilus 1 CAP PO (21:28)
[2025-07-19] MEDS: Niacin SA 500 MG Tablet PO (21:30)
--- NOTE | 2025-07-20 | FLU_PTH ---
PATIENT: RAYMOND BERRY LOC: RU U#:[id number] AGE/SX: 70/F ROOM: RU406 RE07/13/[address]: Dr. Hailey Cordova DO : 1955 BED: 1 DIS: 08/11/2025 SPEC #: [id number] RECD: 07/20/25 15:08 STATUS: KERMIT REDutch #: [id number] BHARATHI: 07/20/25 00:[address]: Hailey Cordova DEPT: CYTOLOGY RECD BY: Chace Tomas ENTERED: 07/20/25 16:23 SP TYPE: Fluid OTHR DR: MD Dr. Thad Kaiser MD Dr. Robert Siska, MD Tissues: A - Pleural fluid, NOS Procedures: Immunohistochemical Stains Special Stain Group II Surgery Specimen Level IV Cytospin Fluid IHC Stain ADDITIONAL HEADER OPERATION: Ultrasound guided thoracentesis PRE-OP DIAGNOSIS: Pleural effusion TISSUE SUBMITTED: A- Thoracentesis fluid for cytology DIAGNOSIS CYTOLOGY A. Pleural effusion, thoracentesis (cytospin, cellblock): - No malignant cells identified. - Macrophages/histiocytes present (CD68 positive). - IHC for CK5/6, pankeratin, CK7, CK20, and calretinin support the histologic impression. CYTOLOGY STUDY Slides are reviewed. ?All matched controls reacted appropriately. These tests were developed and their performance characteristics determined by [facility]. They may not have been cleared or approved by the U.S. Food and Drug Administration. The FDA has determined that such clearance or approval is not necessary.? The above immunohistochemical?markers and/or special stains have been reviewed by the Pathologist. CYTOLOGY GROSS A. Received is 10 ml of [id number] fluid labeled with the patient's name and and designated per the requisition as Thoracentesis fluid. Submitted for cytology and cell block preparation. Mr 07/20/2025 CPT: 74870,[id number],[id number]
[2025-07-20] MEDS: Vancomycin HCl 1,000 MG in 0.9% Normal Saline (250mL Bag) 250 ML 250 MG IV ×3 (00:20→15:17)
--- NOTE | 2025-07-20 01:23 | NURSING ---
Pt. pulse Ox at 2124 on RA was 93%. At midnight with 2L of O2 with nasal cannula pt. pulse Ox was 96%.
[2025-07-20 04:26] VITALS: BMI 20.2
[2025-07-20] MEDS: Dorzolamide HCL/Timolol 10 ml Bottle 1 DRP EACH EYE ×3 (05:11→21:37)
[2025-07-20 05:50] VITALS: BP 121/61; PULSE 68; RESP 12; TEMP 36.7; O2SAT 95
--- NOTE | 2025-07-20 05:59 | PN.SURG_ITS ---
Subjective Subjective Continues to feel better. Better ROM. Objective Data Objective Data Vital Signs: Vital Signs Temp Pulse Resp BP Pulse Ox O2 Del Method O2 Flow Rate 98.1 F 68 12 121/61 H 95 Nasal Cannula 2 07/20/25 05:50 07/20/25 05:50 07/20/25 05:50 07/20/25 05:50 07/20/25 05:50 07/20/25 05:50 07/20/25 05:50 FiO2 21 07/17/25 09:07 Oxygen Flow Rate (L/min) 2 Oxygen Delivery Method Nasal Cannula Weight: 110 lb 14.28 oz Body Mass Index (BMI) 20.2 Intake & Output: Intake and Output for Last 24 Hours 07/18/25 07/19/25 07/20/25 23:59 23:59 23:59 Intake Total 2530.25 / 2530.25 2150 / 2150 320 / 320 Output Total 300 / 300 200 / 200 Balance 2230.25 / 2230.25 1950 / 1950 320 / 320 Lab / Micro Data 07/19/25 07:30 07/19/25 07:30 Labs: Laboratory Results - last 24 hr 07/16/25 12:41: Cycl Citrul Peptide IgG 6, MARLO Screen Negative, c-ANCA Antibody <1:20, Atypical p-ANCA <1:20, p-ANCA Antibody <1:20 07/19/25 07:30: WBC 10.0, RBC 3.24 L, Hgb 9.3 L, Hct 28.9 L, MCV 89.2, MCH 28.7, MCHC 32.2, RDW Std Deviation 46.3 H, RDW Coeff of Johnny 14.3, Plt Count 475 H, MPV 9.1, Immature Gran % (Auto) 1.900 H, Neut % (Auto) 60.3, Lymph % (Auto) 23.3, M jenny % (Auto) 10.7 H, Eos % (Auto) 3.0, Baso % (Auto) 0.8, Absolute Neuts (auto) 6.1, Absolute Lymphs (auto) 2.34, Nucleated RBC % 0, ESR 22, Sodium 138, Potassium 4.0, Chloride 106, Carbon Dioxide 23.3, Anion Gap 9, BUN 9, Creatinine 0.42 L, Estim Creat Clear Calc 51.75, Est GFR (MDRD) Non-Af 105, BUN/Creatinine Ratio 22.5 H, Glucose 103 H, Calcium 8.9, Phosphorus 2.8, Magnesium 2.1, Total Bilirubin < 0.15, AST 20, ALT 30, Alkaline Phosphatase 79, C-React Prot Ext Range 52.30 H, NT pro BNP II 295, Total Protein 5.2 L, Albumin 2.6 L, Globulin 2.6, Albumin/Globulin Ratio 1.0, Vancomycin Trough 19.0 H Micro: Microbiology 07/16/25 17:35 Blood Culture (Wb) - Left Hand Blood Culture - Preliminary No growth in 48 hours. 07/17/25 Unknown Incision/Surgical Site Gram Stain - Final 07/17/25 Unknown Incision/Surgical Site Wound Culture - Preliminary No growth-Final to follow 07/17/25 Unknown Incision/Surgical Site Anaerobic Culture - Preliminary No growth in 48 hours. 07/17/25 Unknown Tissue - Incision site Gram Stain - Final 07/17/25 Unknown Tissue - Incision site Wound Culture - Preliminary No growth-Final to follow 07/17/25 Unknown Tissue - Incision site Anaerobic Culture - Preliminary No growth in 48 hours. 07/17/25 Unknown Incision/Surgical Site Gram Stain - Final 07/17/25 Unknown Incision/Surgical Site Wound Culture - Preliminary 07/17/25 Unknown Incision/Surgical Site Anaerobic Culture - Preliminary No growth in 48 hours. 07/17/25 Unknown Incision/Surgical Site Gram Stain - Final 07/17/25 Unknown Incision/Surgical Site Wound Culture - Preliminary No growth-Final to follow 07/17/25 Unknown Incision/Surgical Site Anaerobic Culture - Preliminary No growth in 48 hours. 07/18/25 15:40 Stool Stool Occult Blood (MAURICIO) - Final Radiography Diagnostic Testing: Radiology Impression Chest X-Ray 07/19/25 09:10 IMPRESSION: Right upper quadrant abdominal surgical clips are again seen. Small right and probable smaller right pleural effusions are seen, probably slightly increased on the left compared with the prior study of 07/16/2025. No evidence of pulmonary edema. Mild airspace disease is seen of the lung bases. Although most probably due to atelectasis, cannot exclude the presence of pneumonitis. No pneumothorax is seen. The cardiomediastinal silhouette is stable, without evidence of cardiomegaly. No interval osseous change is seen. Reading Location: [facility] Physical Exam Narrative Right upper Extremity Inspection:No purulence. Less swelling. Palpation: No pain with axial loading of the MCP joint of the right index finger and the wrist. Continues to improve. Motor: Unable to make a full fist secondary to pain from the incisions, but moving the hand/wrist. Sensory: Intact to light touch on the radial and ulnar borders. Vascular: Finger tips are warm and well perfused with <2 second capillary refill. Assessment & Plan Assessment/Plan (1) Septic finger of right hand: (2) Septic arthritis: QUALIFIERS: Septic arthritis location: wrist Septic arthritis organism: due to unspecified organism Laterality: right Qualified Code(s): M 00.9 - Pyogenic arthritis, unspecified PLAN: Plan Continue TID Dial Soap soaks as the wounds heal in Dry dressing F/u cultures. Continue elevation PSU to follow
--- NOTE | 2025-07-20 08:00 | US_ITS ---
PROCEDURE: THORACENTESIS W US 07/20/2025 REASON FOR EXAM: L PLEURAL EFFUSION - DIAGNOSTIC TECHNIQUE: THORACENTESIS W US COMPARISON: PA and lateral chest x-ray of . FINDINGS: Based on the comparison chest x-ray of 07/19/2025, the plan was to attempt left sided diagnostic thoracentesis. Because initial imaging on today's bilateral thoracic ultrasound demonstrated only very minimal visible fluid on the left, and a small amount of fluid on the right, a decision was made to attempt a diagnostic aspiration on the right side.. Following informed consent, and using standard sterile technique, a right sided ultrasound-guided diagnostic thoracentesis was performed via a posterior approach. 2% lidocaine local anesthesia was followed by placement of a 5 Turkmen catheter into the small right pleural fluid collection. Approximately 18 mL of clear yellow fluid was successfully removed, and sent to the laboratory for evaluation. No complication was encountered, in the patient left the department in good condition without complaint. US/Thoracentesis W US IMPRESSION: Successful diagnostic right thoracentesis. Laboratory results pending. Reading Location: [place] [address]
--- NOTE | 2025-07-20 08:00 | PCM.PROGNOTE ---
Subjective Subjective Day #5 antibiotics. Now on Vanco and Rocephin .......Dr. Martinez changed Zosyn to Rocephin yesterday. Afebrile Vital signs are stable and the blood pressure is within goal. Heart rate is within normal limits. Maintaining appropriate oxygen saturations on room air while awake and wearing 2 L of nasal O2 at night for desaturation with sleep. 2 bowel movements yesterday. Good appetite and intake. Has been taking Tramadol for pain and occasional Tylenol. She had 3 doses of Tramadol yesterday and 3 doses the day before. Pain is adequately controlled and she has more motion in the joint. I reviewed the cultures done at the time of surgery......no growth to date. sleeping well at night. Denies diarrhea, mouth pain, painful swallowing, vaginal itching or DC, CP, SOB, cough, palpitations and lightheadedness. She is going for thoracentesis today (diagnostic). Plavix and Lovenox held this AM. Objective Data Objective Data Vital Signs: Vital Signs Temp Pulse Resp BP Pulse Ox O2 Del Method O2 Flow Rate 98.1 F 68 12 121/61 H 95 Nasal Cannula 2 07/20/25 05:50 07/20/25 05:50 07/20/25 05:50 07/20/25 05:50 07/20/25 05:50 07/20/25 05:50 07/20/25 05:50 FiO2 21 07/17/25 09:07 Oxygen Flow Rate (L/min) 2 Oxygen Delivery Method Nasal Cannula Weight: 110 lb 14.28 oz Body Mass Index (BMI) 20.2 Intake & Output: Intake and Output for Last 24 Hours 07/18/25 07/19/25 07/20/25 23:59 23:59 23:59 Intake Total 2530.25 / 2530.25 2150 / 2150 320 / 320 Output Total 300 / 300 200 / 200 Balance 2230.25 / 2230.25 1950 / 1950 320 / 320 Lab / Micro Data 07/19/25 07:30 07/19/25 07:30 Labs: Laboratory Results - last 24 hr 07/16/25 12:41: Cycl Citrul Peptide IgG 6, MARLO Screen Negative, c-ANCA Antibody <1:20, Atypical p-ANCA <1:20, p-ANCA Antibody <1:20, SS-A/Ro IgG Antibody TNP, SS-B/La IgG Antibody TNP, Double Strand DNA Ab TNP 07/19/25 07:30: WBC 10.0, RBC 3.24 L, Hgb 9.3 L, Hct 28.9 L, MCV 89.2, MCH 28.7, MCHC 32.2, RDW Std Deviation 46.3 H, RDW Coeff of Johnny 14.3, Plt Count 475 H, MPV 9.1, Immature Gran % (Auto) 1.900 H, Neut % (Auto) 60.3, Lymph % (Auto) 23.3, [place] % (Auto) 10.7 H, Eos % (Auto) 3.0, Baso % (Auto) 0.8, Absolute Neuts (auto) 6.1, Absolute Lymphs (auto) 2.34, Nucleated RBC % 0, ESR 22, Sodium 138, Potassium 4.0, Chloride 106, Carbon Dioxide 23.3, Anion Gap 9, BUN 9, Creatinine 0.42 L, Estim Creat Clear Calc 51.75, Est GFR (MDRD) Non-Af 105, BUN/Creatinine Ratio 22.5 H, Glucose 103 H, Calcium 8.9, Phosphorus 2.8, Magnesium 2.1, Total Bilirubin < 0.15, AST 20, ALT 30, Alkaline Phosphatase 79, C-React Prot Ext Range 52.30 H, NT pro BNP II 295, Total Protein 5.2 L, Albumin 2.6 L, Globulin 2.6, Albumin/Globulin Ratio 1.0, Vancomycin Trough 19.0 H Micro: Microbiology 07/16/25 17:35 Blood Culture (Wb) - Left Hand Blood Culture - Preliminary No growth in 48 hours. 07/17/25 Unknown Incision/Surgical Site Gram Stain - Final 07/17/25 Unknown Incision/Surgical Site Wound Culture - Preliminary No growth-Final to follow 07/17/25 Unknown Incision/Surgical Site Anaerobic Culture - Preliminary No growth in 48 hours. 07/17/25 Unknown Tissue - Incision site Gram Stain - Final 07/17/25 Unknown Tissue - Incision site Wound Culture - Preliminary No growth-Final to follow 07/17/25 Unknown Tissue - Incision site Anaerobic Culture - Preliminary No growth in 48 hours. 07/17/25 Unknown Incision/Surgical Site Gram Stain - Final 07/17/25 Unknown Incision/Surgical Site Wound Culture - Preliminary 07/17/25 Unknown Incision/Surgical Site Anaerobic Culture - Preliminary No growth in 48 hours. 07/17/25 Unknown Incision/Surgical Site Gram Stain - Final 07/17/25 Unknown Incision/Surgical Site Wound Culture - Preliminary No growth-Final to follow 07/17/25 Unknown Incision/Surgical Site Anaerobic Culture - Preliminary No growth in 48 hours. 07/18/25 15:40 Stool Stool Occult Blood (MAURICIO) - Final Radiography Diagnostic Testing: Radiology Impression Chest X-Ray 07/19/25 09:10 IMPRESSION: Right upper quadrant abdominal surgical clips are again seen. Small right and probable smaller right pleural effusions are seen, probably slightly increased on the left compared with the prior study of 07/16/2025. No evidence of pulmonary edema. Mild airspace disease is seen of the lung bases. Although most probably due to atelectasis, cannot exclude the presence of pneumonitis. No pneumothorax is seen. The cardiomediastinal silhouette is stable, without evidence of cardiomegaly. No interval osseous change is seen. Reading Location: [place] [address] Physical Exam Const alert Constitutional Narrative: sppech is a little more clear and I can understand her more easily. Neck supple Resp Resp Narrative: CTA after few deep breaths. She has difficulty understanding what I want her to do to take a deep breath and keeps breathing through her nose today so BS's are diminished. . Effort and Inspection: Negative for tachypneic or respiratory distress Cardio regular rate, regular rhythm, no rub and no gallops Cardio Narrative: No ectopy. 1/6 systolic MM at the second R ICS with no radiation......may be due to anemia. Extremity no calf tenderness Extremity Narrative: No significant LE edema. MARYLOU hose are in place. The R wrist swelling has improved. Erythema is much better. The incisions are intact with no dehiscence. There is no purulent DC. She has better ROM and the pain is much better with axial loading.....which caused severe pain on Saturday. Skin General Skin Exam: no breakdown Rashes: rashes noted Psych cooperative and affect normal Psych Narrative: Making good eye contact with me. Appearance: appropriate Assessment & Plan Assessment/Plan (1) Septic arthritis: QUALIFIERS: Septic arthritis location: wrist Septic arthritis organism: due to unspecified organism Laterality: right Qualified Code(s): M00.9 - Pyogenic arthritis, unspecified (2) Pleural effusion, left: (3) Debility: (4) Ischemic cerebrovascular accident (CVA): (5) Dysarthria due to acute cerebrovascular accident (CVA): (6) Hemiparesis of right dominant side due to cerebral infarction: (7) HTN (hypertension): QUALIFIERS: Hypertension type: primary hypertension Qualified Code(s): I10 - Essential (primary) hypertension (8) HLD (hyperlipidemia): QUALIFIERS: Hyperlipidemia type: mixed hyperlipidemia Qualified Code(s): E78.2 - Mixed hyperlipidemia (9) Glaucoma: QUALIFIERS: Glaucoma type: unspecified Laterality: bilateral Qualified Code(s): H40.9 - Unspecified glaucoma (10) Ankle edema: (11) Poor dental hygiene: (12) Depression: QUALIFIERS: Depression Type: unspecified Qualified Code(s): F32.A - Depression, unspecified (13) Grade I diastolic dysfunction: (14) Low HDL (under 40): (15) Hypertriglyceridemia: (16) Left shoulder pain: QUALIFIERS: Chronicity: chronic Qualified Code(s): M25.512 - Pain in left shoulder; G89.29 - Other chronic pain PLAN: Plan 1. Continue therapy 2. Diagnostic thoracentesis today - Lab ordered. 3. Restart Plavix and Lovenox tomorrow a.m. 4. COntinue Vancomycin and Rocephin Charges/Coding Visit Charges Inpatient E&M: [address] [facility]
[2025-07-20] MEDS: Arthritis Pain Compound 60 CLICK TUBE TOPICAL ×2 (08:06→21:37)
[2025-07-20] MEDS: Lactobacillis Acidophilus 1 CAP PO ×2 (08:06→21:39)
[2025-07-20] MEDS: 0.9% Saline Lock 10 ML Syringe IV ×2 (08:48→23:55)
[2025-07-20] MEDS: Ceftriaxone 2 GM in 0.9% Normal Saline (50mL MB+) 50 ML IV (11:04)
[2025-07-20 11:39] VITALS: BMI 20.2
--- NOTE | 2025-07-20 14:15 | NURSING ---
Addendum entered by Lauren Cabello 07/20/25 15:09: pt returned from procedure. A&O x3, VS WNL Original Note: pt left unit for procedure
[2025-07-20 14:35] VITALS: BP 134/59; PULSE 93; RESP 18; O2SAT 95
[2025-07-20 15:09] VITALS: BP 127/70; PULSE 90; RESP 18; O2SAT 95
[2025-07-20 15:10] VITALS: BP 122/68; PULSE 91; RESP 18; O2SAT 94
[2025-07-20 15:11] LABS: Cytology, Body Fluid / CSF SEE PATHOLOGY REPORT
[2025-07-20 16:43] LABS: Glucose, Body Fluid 139 mg/dL (Not Establ.)
[2025-07-20 16:54] LABS: Body Fluid Mononuclear WBC # 0.386 10^3/uL; Body Fluid Mononuclear WBC % 95.1 %; Body Fluid Polynuclear WBC # 0.020 10^3/uL; Body Fluid Polynuclear WBC % 4.9 %; White Blood Count/Body Fluid 0.406 10^3/uL
[2025-07-20 17:10] LABS: Auto B Fluid Analyzer BKGD Ct COUNTS W/IN LIMITS (W/IN LIMITS); Source- Body Fluid THORACENTESIS
[2025-07-20 17:11] LABS: Appearance/Body Fluid CLEAR; Body Fluid QC Type(s) BE1Q; Color/Body Fluid LT YEL
[2025-07-20 18:00] VITALS: BP 150/78; PULSE 84; RESP 17; TEMP 36.6; O2SAT 96
[2025-07-20 20:12] LABS: Red Cell Count/Body Fluid 303 /mm3
[2025-07-20 21:07] LABS: Neutrophil (Segs) 5 %
[2025-07-20] MEDS: Niacin SA 500 MG Tablet PO (21:38)
--- NOTE | 2025-07-21 | NURSING ---
Right hand soak completed at 0000. Rinsed wound with normal saline. Two 4x4 gauze pads applied over incision site. Incisions had minimal serosang. drainage. Wrapped hand/arm using kerlix and anita wrap. Patient tolerated dressing change well. Denies additional needs at this time.
[2025-07-21] MEDS: Vancomycin HCl 1,000 MG in 0.9% Normal Saline (250mL Bag) 250 ML 250 MG IV (00:06)
[2025-07-21 03:09] VITALS: BMI 20.2
[2025-07-21 04:59] VITALS: BP 124/69; PULSE 79; RESP 18; TEMP 36.4; O2SAT 98
[2025-07-21] MEDS: Dorzolamide HCL/Timolol 10 ml Bottle 1 DRP EACH EYE ×3 (05:01→20:52)
[2025-07-21 08:34] LABS: Vancomycin, Trough Level 21.6 ug/mL (5.0-15.0)
[2025-07-21] MEDS: Lactobacillis Acidophilus 1 CAP PO ×2 (08:59→20:53)
[2025-07-21] MEDS: Arthritis Pain Compound 60 CLICK TUBE TOPICAL ×2 (09:00→20:51)
--- NOTE | 2025-07-21 09:23 | PCM.RX.CS ---
Consult Antibiotic Management Pharmacy has been consulted to manage selected antibiotic: Vancomycin Type of Intervention Type of Consult: Follow-up Suspected Infection Suspected Infection: Osteomyelitis Labs Labs: Sodium 138 mmol/L (133-145) 07/19/25 07:30 Potassium 4.0 mmol/L (3.3-5.1) 07/19/25 07:30 Chloride 106 mmol/L (98-108) 07/19/25 07:30 Carbon Dioxide 23.3 mmol/L (21.0-32.0) 07/19/25 07:30 Anion Gap 9 (5-15) 07/19/25 07:30 BUN 9 mg/dL (4-19) 07/19/25 07:30 Creatinine 0.42 mg/dL (0.70-1.20) L 07/19/25 07:30 Est GFR (MDRD) Non-Af 105 (>60) 07/19/25 07:30 BUN/Creatinine Ratio 22.5 RATIO (10-20) H 07/19/25 07:30 Glucose 103 mg/dL (70-99) H 07/19/25 07:30 Vancomycin Trough 21.6 ug/mL (5.0-15.0) H 07/21/25 07:21 Microbiology Microbiology: Microbiology 07/17/25 Unknown Incision/Surgical Site Gram Stain - Final 07/17/25 Unknown Incision/Surgical Site Wound Culture - Final No growth aerobically. 07/17/25 Unknown Incision/Surgical Site Anaerobic Culture - Preliminary No growth in 48 hours. 07/17/25 Unknown Tissue - Incision site Gram Stain - Final 07/17/25 Unknown Tissue - Incision site Wound Culture - Final No growth aerobically. 07/17/25 Unknown Tissue - Incision site Anaerobic Culture - Preliminary No growth in 48 hours. 07/17/25 Unknown Incision/Surgical Site Gram Stain - Final 07/17/25 Unknown Incision/Surgical Site Wound Culture - Final No growth aerobically. 07/17/25 Unknown Incision/Surgical Site Anaerobic Culture - Preliminary No growth in 48 hours. 07/17/25 Unknown Incision/Surgical Site Gram Stain - Final 07/17/25 Unknown Incision/Surgical Site Wound Culture - Final No growth aerobically. 07/17/25 Unknown Incision/Surgical Site Anaerobic Culture - Preliminary No growth in 48 hours. 07/16/25 17:35 Blood Culture (Wb) - Left Hand Blood Culture - Preliminary No growth in 48 hours. 07/18/25 15:40 Stool Stool Occult Blood (MAURICIO) - Final Dosing Weight Weight used for dosin.3 kg Estimated Creatinine Clearance Estimated Creatinine Clearance: 51.75 Goal Trough Goal Trough: 15-20 mcg/mL Pharmacy Plan for Drug Dosing Pharmacy Plan for Drug Dosing: Pharmacy Service will continue to monitor and adjust dosing as required. VANCOMYCIN LEVEL RECEIVED Current Vancomycin Dose: 1000 MG Q8H Vancomycin Level: 21.6 Hours Since Last Dose: 7 Renal Function: SCr: 0.42, CrCl: 51.75 Renal Function Trend: STABLE Lab/Micro: SEPTIC ARTHRITIS Vancomycin Plan/Comments: ADJUST DOSE TO 1250 MG Q12H with first dose 07/21 @ 1000 Pending Level: 07/22 @ 2129 Date/Time Labs Ordered Labs to be done on [date and time ordered]: 07/22/25 @ 213
[2025-07-21 09:38] LABS: Pathologist Comment/Body Fluid Reviewed
--- NOTE | 2025-07-21 09:41 | PCM.PN.SRG ---
Subjective Subjective Sligt worsening of hand and wrist pain. Maybe because more activity but unclear. Objective Data Objective Data Vital Signs: Vital Signs Temp Pulse Resp BP Pulse Ox O2 Del Method O2 Flow Rate 97.6 F L 79 18 124/69 H 98 Nasal Cannula 2 07/21/25 04:59 07/21/25 04:59 07/21/25 04:59 07/21/25 04:59 07/21/25 04:59 07/21/25 04:59 07/21/25 04:59 FiO2 21 07/17/25 09:07 Oxygen Flow Rate (L/min) 2 Oxygen Delivery Method Nasal Cannula Weight: 110 lb 14.28 oz Body Mass Index (BMI) 20.2 Intake & Output: Intake and Output for Last 24 Hours 07/19/25 07/20/25 07/21/25 23:59 23:59 23:59 Intake Total 2150 / 2150 1850 / 1850 470 / 470 Output Total 200 / 200 / Balance 1950 / 1950 1832 / 1832 470 / 470 Lab / Micro Data 07/19/25 07:30 07/19/25 07:30 Labs: Laboratory Results - last 24 hr 07/20/25 : Fluid Source THORACENTESIS, Fluid Color LT YEL, Fluid Appearance CLEAR, Fluid WBC 0.406, Fluid RBC 303, Fluid Tot Cell Count 0.418 H, Fld Polynuclear WBCs # 0.020, Fld Polynuclear WBCs % 4.9, Fluid Mononuclear WBCs 0.386, Fld Mononuclear WBCs % 95.1, Fluid Neutrophils 5, Fluid Lymphocytes 68, Fluid Monocytes 25, Fluid Macrophages 2, Fl Pathologist Comment Reviewed, Fluid Glucose 139, Fluid Total Protein 1.8, Fluid LDH 112, Fluid Comment 2 SEE COMMENT 07/21/25 07:21: Vancomycin Trough 21.6 H Micro: Microbiology 07/17/25 Unknown Incision/Surgical Site Gram Stain - Final 07/17/25 Unknown Incision/Surgical Site Wound Culture - Final No growth aerobically. 07/17/25 Unknown Incision/Surgical Site Anaerobic Culture - Preliminary No growth in 48 hours. 07/17/25 Unknown Tissue - Incision site Gram Stain - Final 07/17/25 Unknown Tissue - Incision site Wound Culture - Final No growth aerobically. 07/17/25 Unknown Tissue - Incision site Anaerobic Culture - Preliminary No growth in 48 hours. 07/17/25 Unknown Incision/Surgical Site Gram Stain - Final 07/17/25 Unknown Incision/Surgical Site Wound Culture - Final No growth aerobically. 07/17/25 Unknown Incision/Surgical Site Anaerobic Culture - Preliminary No growth in 48 hours. 07/17/25 Unknown Incision/Surgical Site Gram Stain - Final 07/17/25 Unknown Incision/Surgical Site Wound Culture - Final No growth aerobically. 07/17/25 Unknown Incision/Surgical Site Anaerobic Culture - Preliminary No growth in 48 hours. 07/16/25 17:35 Blood Culture (Wb) - Left Hand Blood Culture - Preliminary No growth in 48 hours. 07/18/25 15:40 Stool Stool Occult Blood (MAURICIO) - Final Radiography Diagnostic Testing: Radiology Impression Thoracentesis Ultrasound 07/20/25 08:00 IMPRESSION: Successful diagnostic right thoracentesis. Laboratory results pending. Reading Location: [place] [address] Physical Exam Narrative Right upper Extremity Inspection:No purulence. Less swelling. Some erythema along wrist and MCP joint incisions that is new today. Palpation: No pain with axial loading of the MCP joint of the right index finger and the wrist. Motor: Unable to make a full fist secondary to pain from the incisions, but moving the hand/wrist. Sensory: Intact to light touch on the radial and ulnar borders. Vascular: Finger tips are warm and well perfused with <2 second capillary refill. Assessment & Plan Assessment/Plan (1) Septic finger of right hand: (2) Septic arthritis: QUALIFIERS: Septic arthritis location: wrist Septic arthritis organism: due to unspecified organism Laterality: right Qualified Code(s): M00.9 - Pyogenic arthritis, unspecified PLAN: Plan 3 sutures removed from wrist and MCP joint incisions to promote drainage/soaks today Continue TID Dial Soap soaks as the wounds heal in Dry dressing F/u cultures. Agree with ID consult since NGTD on cultures Continue elevation PSU to follow
[2025-07-21] MEDS: Ceftriaxone 2 GM in 0.9% Normal Saline (50mL MB+) 50 ML IV (11:05)
[2025-07-21] MEDS: 0.9% Saline Lock 10 ML Syringe IV ×2 (11:05→20:54)
[2025-07-21 11:08] LABS: LDH 164 U/L (84-246)
[2025-07-21] MEDS: Vancomycin HCl 1,250 MG in 0.9% Normal Saline (250mL Bag) 250 ML 167 MG IV ×2 (11:48→21:56)
[2025-07-21 13:26] VITALS: O2SAT 95
--- NOTE | 2025-07-21 15:03 | PCM.PN.ID ---
Physical Exam Narrative Feeling about the same, wrist sore, no fever, no n/v/d. No cough or dyspnea. Const alert and no apparent distress General Appearance: cooperative Resp normal air movement and clear to auscultation bilaterally Cardio regular rate and regular rhythm GI soft to palpation, non-tender and non-distended Skin Skin Narrative: R wrist wrapped ID ID: Route of nutrition/ use of supplements: [] Nutritional Intake: [] IV Site: [] Cabrera Catheter: [] Assessment & Plan Assessment/Plan (1) Septic finger of right hand: PLAN: Surg cx neg so far. Cont vanc/ceftriaxone. Thoracentesis showed mild wbcs. Will follow (2) Septic arthritis: QUALIFIERS: Septic arthritis location: wrist Septic arthritis organism: due to unspecified organism Laterality: right Qualified Code(s): M00.9 - Pyogenic arthritis, unspecified (3) Pleural effusion, left:
[2025-07-21 17:00] VITALS: BMI 20.2
[2025-07-21 17:56] VITALS: BP 122/64; PULSE 85; RESP 16; TEMP 36.7; O2SAT 95
[2025-07-21] MEDS: Niacin SA 500 MG Tablet PO (20:54)
[2025-07-21 22:00] VITALS: PULSE 86; O2SAT 95
[2025-07-22 02:55] VITALS: BMI 20.2
[2025-07-22 06:00] VITALS: BP 116/61; PULSE 86; RESP 16; TEMP 36.5; O2SAT 95
[2025-07-22] MEDS: Dorzolamide HCL/Timolol 10 ml Bottle 1 DRP EACH EYE ×3 (06:16→22:40)
[2025-07-22] MEDS: Lactobacillis Acidophilus 1 CAP PO ×2 (07:57→22:40)
[2025-07-22] MEDS: Arthritis Pain Compound 60 CLICK TUBE TOPICAL ×2 (07:57→22:40)
--- NOTE | 2025-07-22 08:27 | PN.SURG_ITS ---
Subjective Subjective Improved pain since yesterday. Compliant with soaks, rest and elevation. Objective Data Objective Data Vital Signs: Vital Signs Temp Pulse Resp BP Pulse Ox O2 Del Method O2 Flow Rate 97.7 F L 86 16 116/61 95 Nasal Cannula 2 07/22/25 06:00 07/22/25 06:00 07/22/25 06:00 07/22/25 06:00 07/22/25 06:00 07/22/25 06:00 07/22/25 06:00 FiO2 21 07/17/25 09:07 Oxygen Flow Rate (L/min) 2 Oxygen Delivery Method Nasal Cannula Weight: 110 lb 14.28 oz Body Mass Index (BMI) 20.2 Intake & Output: Intake and Output for Last 24 Hours 07/20/25 07/21/25 07/22/25 23:59 23:59 23:59 Intake Total 1850 / 1850 1070 / 1220 250 / 250 Output Total / Balance 1832 / 1832 1070 / 1220 250 / 250 Lab / Micro Data 07/19/25 07:30 07/19/25 07:30 Labs: Laboratory Results - last 24 hr 07/20/25 : Fl Pathologist Comment Reviewed 07/21/25 07:21: Lactate Dehydrogenase 164, Vancomycin Trough 21.6 H Micro: Microbiology 07/16/25 17:35 Blood Culture (Wb) - Left Hand Blood Culture - Final No growth in 5 days. 07/20/25 Unknown Fluid - Thoracentesis Fluid Gram Stain - Final 07/17/25 Unknown Incision/Surgical Site Gram Stain - Final 07/17/25 Unknown Incision/Surgical Site Wound Culture - Final No growth aerobically. 07/17/25 Unknown Incision/Surgical Site Anaerobic Culture - Preliminary No growth in 48 hours. 07/17/25 Unknown Tissue - Incision site Gram Stain - Final 07/17/25 Unknown Tissue - Incision site Wound Culture - Final No growth aerobically. 07/17/25 Unknown Tissue - Incision site Anaerobic Culture - Preliminary No growth in 48 hours. 07/17/25 Unknown Incision/Surgical Site Gram Stain - Final 07/17/25 Unknown Incision/Surgical Site Wound Culture - Final No growth aerobically. 07/17/25 Unknown Incision/Surgical Site Anaerobic Culture - Preliminary No growth in 48 hours. 07/17/25 Unknown Incision/Surgical Site Gram Stain - Final 07/17/25 Unknown Incision/Surgical Site Wound Culture - Final No growth aerobically. 07/17/25 Unknown Incision/Surgical Site Anaerobic Culture - Preliminary No growth in 48 hours. 07/18/25 15:40 Stool Stool Occult Blood (MAURICIO) - Final Physical Exam Narrative Right upper Extremity Inspection:No purulence. Less swelling. All erythema has subsided. Palpation: No pain with axial loading of the MCP joint of the right index finger and the wrist. Motor: Unable to make a full fist secondary to pain from the incisions, but moving the hand/wrist. Sensory: Intact to light touch on the radial and ulnar borders. Vascular: Finger tips are warm and well perfused with <2 second capillary refill. Assessment & Plan Assessment/Plan (1) Septic finger of right hand: (2) Septic arthritis: QUALIFIERS: Septic arthritis location: wrist Septic arthritis organism: due to unspecified organism Laterality: right Qualified Code(s): M 00.9 - Pyogenic arthritis, unspecified PLAN: Plan 3 sutures removed from wrist and MCP joint incisions to promote drainage/soaks today Continue TID Dial Soap soaks as the wounds heal in Dry dressing F/u cultures. Agree with ID consult since NGTD on cultures Continue elevation PSU to follow Charges/Coding Procedures Integumentary [id number]: [id number] Global Visit
--- NOTE | 2025-07-22 08:28 | PN_ITS ---
Subjective Subjective Charley was seen on team rounds today. No family was available to participate. A call was placed to her Jatin but, the call went to . Postoperative day #5-status post washout of the right wrist and the MCP of the right index finger. Day #7 antibiotics for septic arthritis of the R wrist and the R second MCP Afebrile VSS - Maintaining appropriate oxygen saturation on RA Oral intake - FOOD good FLUIDS very poor......... nursing only reported 200 cc of p.o. fluid intake yesterday. Weights are not accurate.......She could not have lost 11 lbs in 3 days........she is being weighed on the bed. Discussed with nursing - Reviewed the THERAPY notes Medication list reviewed. At least 1 of the Light's criteria was met which is reportedly 98% sensitive for exudate. Charley has had decreased appetite the past 2 days. She is tired and she is c/o pain in multiple joints. she has had pain in the left shoulder due to OA and rotator cuff tendinopathy and she is not able to use that should/arm to support herself on the walker. She is also c/o BL knee pain and also R wrist pain. She did not take any tylenol on 07/20 or 07/21. Nursing has been giving her Tramadol 50 mg 2-3 times a day. The arthritis pain cream has not adequately relieved the L shoulder pain. She has had the L shoulder injected in the past and tells me that it did not help. She admits that the Tramadol makes her tired. She denies nausea/vomiting/abdominal pain. She tells me that she just does not have an appetite. She denies chest pain, shortness of breath, cough, lightheadedness, cephalgia. No diarrhea. Denies vaginal DC or itching Objective Data Objective Data Vital Signs: Vital Signs Temp Pulse Resp BP Pulse Ox O2 Del Method O2 Flow Rate 97.7 F L 86 16 116/61 95 Nasal Cannula 2 07/22/25 06:00 07/22/25 06:00 07/22/25 06:00 07/22/25 06:00 07/22/25 06:00 07/22/25 06:00 07/22/25 06:00 FiO2 21 07/17/25 09:07 Oxygen Flow Rate (L/min) 2 Oxygen Delivery Method Nasal Cannula Weight: 110 lb 14.28 oz Body Mass Index (BMI) 20.2 Intake & Output: Intake and Output for Last 24 Hours 07/20/25 07/21/25 07/22/25 23:59 23:59 23:59 Intake Total 1850 / 1850 1070 / 1220 250 / 250 Output Total Balance 1832 / 1832 1070 / 1220 250 / 250 Lab / Micro Data 07/19/25 07:30 07/19/25 07:30 Labs: Laboratory Results - last 24 hr 07/20/25 : Fl Pathologist Comment Reviewed 07/21/25 07:21: Lactate Dehydrogenase 164, Vancomycin Trough 21.6 H Micro: Microbiology 07/16/25 17:35 Blood Culture (Wb) - Left Hand Blood Culture - Final No growth in 5 days. 07/20/25 Unknown Fluid - Thoracentesis Fluid Gram Stain - Final 07/17/25 Unknown Incision/Surgical Site Gram Stain - Final 07/17/25 Unknown Incision/Surgical Site Wound Culture - Final No growth aerobically. 07/17/25 Unknown Incision/Surgical Site Anaerobic Culture - Preliminary No growth in 48 hours. 07/17/25 Unknown Tissue - Incision site Gram Stain - Final 07/17/25 Unknown Tissue - Incision site Wound Culture - Final No growth aerobically. 07/17/25 Unknown Tissue - Incision site Anaerobic Culture - Preliminary No growth in 48 hours. 07/17/25 Unknown Incision/Surgical Site Gram Stain - Final 07/17/25 Unknown Incision/Surgical Site Wound Culture - Final No growth aerobically. 07/17/25 Unknown Incision/Surgical Site Anaerobic Culture - Preliminary No growth in 48 hours. 07/17/25 Unknown Incision/Surgical Site Gram Stain - Final 07/17/25 Unknown Incision/Surgical Site Wound Culture - Final No growth aerobically. 07/17/25 Unknown Incision/Surgical Site Anaerobic Culture - Preliminary No growth in 48 hours. 07/18/25 15:40 Stool Stool Occult Blood (MAURICIO) - Final Physical Exam Const alert Constitutional Narrative: Flat affect. Does not appear to be in pain when she is lying in the bed. She is not restless or fidgeting. She is not grimacing. She is always pleasant. She is not tearful. Still with significant dysarthria making it difficult to understand what she is trying to say. HEENT HEENT Narrative: She has thrush but denies mouth pain or painful swallowing. Resp clear to auscultation bilaterally Resp Narrative: No conversational dyspnea. Effort and Inspection: Negative for tachypneic Cardio regular rate and regular rhythm Cardio Narrative: at the second RICS which radiates to the LLSB and the apex. No ectopy. No gallop and no rub. GI normal to inspection, nondistended, normoactive bowel sounds, soft to palpation and non-tender Extremity Extremity Narrative: She has bony enlargement of both knees secondary to osteoarthritis. There is no erythema and no significant increased warmth to touch. Right knee is more enlarged than the left. No pitting edema of the ankles. Denies calf tenderness. Please see Dr. Smith's note for exam of the R wrist. It continued to improve. Skin Rashes: no rashes Psych Psych Narrative: Flat affect. Assessment & Plan Assessment/Plan (1) Septic arthritis: QUALIFIERS: Septic arthritis location: wrist Septic arthritis organism: due to unspecified organism Laterality: right Qualified Code(s): M 00.9 - Pyogenic arthritis, unspecified (2) Pleural effusion, left: (3) Debility: (4) Ischemic cerebrovascular accident (CVA): (5) Dysarthria due to acute cerebrovascular accident (CVA): (6) Hemiparesis of right dominant side due to cerebral infarction: (7) HTN (hypertension): QUALIFIERS: Hypertension type: primary hypertension Qualified Code(s): I10 - Essential (primary) hypertension (8) HLD (hyperlipidemia): QUALIFIERS: Hyperlipidemia type: mixed hyperlipidemia Qualified Code(s): E78.2 - Mixed hyperlipidemia (9) Glaucoma: QUALIFIERS: Glaucoma type: unspecified Laterality: bilateral Q ualified Code(s): H40.9 - Unspecified glaucoma (10) Ankle edema: (11) Poor dental hygiene: (12) Depression: QUALIFIERS: Depression Type: unspecified Qualified Code(s): F32.A - Depression, unspecified (13) Grade I diastolic dysfunction: (14) Low HDL (under 40): (15) Hypertriglyceridemia: (16) Left shoulder pain: QUALIFIERS: Chronicity: chronic Qualified Code(s): M25.512 - Pain in left shoulder; G89.29 - Other chronic pain (17) Hospital acquired PNA: (18) Parapneumonic effusion: (19) Osteoarthritis: QUALIFIERS: Osteoarthritis location: multiple joints O steoarthritis type: primary Qualified Code(s): M15.0 - Primary generalized (osteo)arthritis PLAN: Plan 1. Continue therapy. Due to the septic R wrist and 2nd MCP joint and also to suspected LLL PNA with parapneumonic effusion therapy has been limited due to pain and acute illness. The OA pain is worse because she has not been moving. She has failed to make the progress we had hoped for due to the acute illness. She has chronic pain in multiple joints and and known L rotator cuff tendinopathy but, has not sought treatment. I can not see her making much progress until we have adequate pain control. I am going to schedule Tylenol 1 GM every 8 hours since infection is under control and she has had no fevers. I don't really want to use a NSAID because of the recent CVA. Will try Lidocaine patches to the knees and the L shoulder. DC the Remeron and start Cymbalta 20 mg for depression and chronic pain S. Schedule Tramadol 25 mg Q8 H.........50 mg may be too much for her. 2. Continue Rocephin and vancomycin. Appreciate Dr. Martinez's inpt on the antibiotics. 3. Recheck a CBC, BMP, ESR and CRP on Saturday. 4. Family will not be able to care for her adequately at home. Likely will need SNF at [place]. 5. Mycelex atrocious 5 times a day to treat thrush. Charges/Coding Visit Charges Inpatient E&M: 75825 Subs Hosp L2
--- NOTE | 2025-07-22 09:26 | WOUNDNOTE ---
wound photo: right hand/wrist
--- NOTE | 2025-07-22 09:45 | WOUNDNOTE ---
Right hand soaked in warm soap and water as ordered this am for approx [address] Smith had been in to assess the right hand/wrist. redness has nearly resolved. pat hand dry and applied a dry dressing as ordered. wrapped with lisa and GINA wrap. pt tolerated well. arm elevated.
[2025-07-22] MEDS: Ceftriaxone 2 GM in 0.9% Normal Saline (50mL MB+) 50 ML IV (10:24)
[2025-07-22] MEDS: 0.9% Saline Lock 10 ML Syringe IV (10:25)
[2025-07-22] MEDS: Vancomycin HCl 1,250 MG in 0.9% Normal Saline (250mL Bag) 250 ML 167 MG IV ×2 (11:17→22:49)
--- NOTE | 2025-07-22 12:59 | CASEMGMT ---
Social Work IDT met with patient for Team meeting. Left VM with . Discussed patient's progress in PT/OT/ST/SN/MD. Educated to [facility] insurance with NRD 07/26 and continued stay is not guaranteed with each review. IDT noted pt's decline, being very painful, and implementing a miguel angel lift. SW broached DC planning and likley need for SNF. Educated to precert process. SW offered list of SNFs in preferred geographical area, INN with pt?s insurance, including quality and resource data via [employer] Guide. SW to also follow up with on recommendation for SNF. Pt is currently on IV ATB. VERA Frausto to give stop date. SW to follow up. The goal is to remain until end of ATB, then reassess therapy progress. Though, can only care for pt if she is Arley x1. SW to assist with navigating DC plans. Will continue to follow. - ROGER sent Backline to ID for stop date. Marilee Degroot GI ASST EXPRESS CLERK
--- NOTE | 2025-07-22 15:51 | NURSING ---
New orders, tylenol q 8 hours, ultram q 8 hours, cymbalta, lidocaine patch, and mycelex.
--- NOTE | 2025-07-22 17:44 | NURSING ---
Addendum entered by Ct Brown 07/22/25 17:54: Per Marilee DURAN, ATBs can be d/c'd after 3 weeks. Nothing in chart from provider. Need clarification on orders. Original Note: Per Dr. Martinez, can stop ATBS 3 weeks after surgery on 07-17. ATBs to d/c on 08-07-25.
[2025-07-22 18:00] VITALS: BP 125/47; PULSE 90; RESP 17; TEMP 36.7; O2SAT 93
[2025-07-22 22:30] LABS: Vancomycin, Trough Level 18.1 ug/mL (5.0-15.0)
[2025-07-22] MEDS: Niacin SA 500 MG Tablet PO (22:39)
--- NOTE | 2025-07-22 22:45 | PCM.RX.CS ---
Consult Antibiotic Management Pharmacy has been consulted to manage selected antibiotic: Vancomycin Type of Intervention Type of Consult: Follow-up Labs Labs: Sodium 138 mmol/L (133-145) 07/19/25 07:30 Potassium 4.0 mmol/L (3.3-5.1) 07/19/25 07:30 Chloride 106 mmol/L (98-108) 07/19/25 07:30 Carbon Dioxide 23.3 mmol/L (21.0-32.0) 07/19/25 07:30 Anion Gap 9 (5-15) 07/19/25 07:30 BUN 9 mg/dL (4-19) 07/19/25 07:30 Creatinine 0.42 mg/dL (0.70-1.20) L 07/19/25 07:30 Est GFR (MDRD) Non-Af 105 (>60) 07/19/25 07:30 BUN/Creatinine Ratio 22.5 RATIO (10-20) H 07/19/25 07:30 Glucose 103 mg/dL (70-99) H 07/19/25 07:30 Vancomycin Trough 18.1 ug/mL (5.0-15.0) H 07/22/25 21:28 Microbiology Microbiology: Microbiology 07/20/25 Unknown Fluid - Thoracentesis Fluid Gram Stain - Final 07/20/25 Unknown Fluid - Thoracentesis Fluid Body Fluid Culture - Preliminary No growth-Final to follow 07/20/25 Unknown Fluid - Thoracentesis Fluid Anaerobic Culture - Preliminary No growth in 48 hours. 07/17/25 Unknown Tissue - Incision site Gram Stain - Final 07/17/25 Unknown Tissue - Incision site Wound Culture - Final No growth aerobically. 07/17/25 Unknown Tissue - Incision site Anaerobic Culture - Final No growth in 5 days. 07/17/25 Unknown Incision/Surgical Site Gram Stain - Final 07/17/25 Unknown Incision/Surgical Site Wound Culture - Final No growth aerobically. 07/17/25 Unknown Incision/Surgical Site Anaerobic Culture - Final No growth in 5 days. 07/17/25 Unknown Incision/Surgical Site Gram Stain - Final 07/17/25 Unknown Incision/Surgical Site Wound Culture - Final No growth aerobically. 07/17/25 Unknown Incision/Surgical Site Anaerobic Culture - Final No growth in 5 days. 07/17/25 Unknown Incision/Surgical Site Gram Stain - Final 07/17/25 Unknown Incision/Surgical Site Wound Culture - Final No growth aerobically. 07/17/25 Unknown Incision/Surgical Site Anaerobic Culture - Final No growth in 5 days. 07/16/25 17:35 Blood Culture (Wb) - Left Hand Blood Culture - Final No growth in 5 days. 07/18/25 15:40 Stool Stool Occult Blood (MAURICIO) - Final Goal Trough Goal Trough: 15-20 mcg/mL Pharmacy Plan for Drug Dosing Pharmacy Plan for Drug Dosing: Pharmacy Service will continue to monitor and adjust dosing as required. TROUGH 18.1 @ 10 HOURS. NO CHANGES, FOLLOW UP TROUGH IN 2 DAYS Follow-Up Labs Follow-Up Labs: Trough: Vancomycin Date/Time Labs Ordered Labs to be done on [date and time ordered]: 07/24 @ [id number]
[2025-07-22 23:25] VITALS: BMI 20.2
[2025-07-23] MEDS: Dorzolamide HCL/Timolol 10 ml Bottle 1 DRP EACH EYE ×3 (06:26→21:09)
[2025-07-23 06:34] VITALS: BP 110/44; PULSE 80; RESP 16; TEMP 36.6; O2SAT 96; BMI 20.7
[2025-07-23] MEDS: Arthritis Pain Compound 60 CLICK TUBE TOPICAL ×2 (08:14→21:09)
[2025-07-23] MEDS: Lactobacillis Acidophilus 1 CAP PO ×2 (08:14→21:09)
[2025-07-23] MEDS: Lidocaine 5% Patch 3 PATCH TOPICAL (08:15)
[2025-07-23 08:30] VITALS: O2SAT 96
[2025-07-23] MEDS: Ceftriaxone 2 GM in 0.9% Normal Saline (50mL MB+) 50 ML IV (09:14)
[2025-07-23 09:34] LABS: Hematocrit 26.9 % (37-47); Hemoglobin 8.9 g/dL (12.0-15.0); Mean Corp Hgb Conc 33.1 g/dL (32-36); Mean Corpuscular Volume 88.5 fL (81-99); Mean Platelet Vol. 9.0 fl (6.2-12.0); Platelet Count 482 K/mm3 (150-450); RBC Distribution Width CV 14.3 % (11.6-14.6); RBC Distribution Width SD 46.4 fl (35.1-43.9); Red Blood Count 3.04 M/mm3 (4.2-5.4); White Blood Count 16.1 K/mm3 (4.4-11.0)
--- NOTE | 2025-07-23 10:16 | PCM.PN.ID ---
Physical Exam Narrative Wrist feeling better today, no fever, no n/v/d. Const alert and no apparent distress General Appearance: cooperative Resp normal air movement and clear to auscultation bilaterally Cardio regular rate and regular rhythm GI soft to palpation, non-tender and non-distended Skin no rashes or lesions noted ID ID: Route of nutrition/ use of supplements: [] Nutritional Intake: [] IV Site: [] Cabrera Catheter: [] Assessment & Plan Assessment/Plan (1) Septic finger of right hand: PLAN: Surg cx neg so far. Cont vanc/ceftriaxone. Thoracentesis showed mild wbcs. Abx stop date planned for 08/07/25 for 3 weeks total post-op. Will follow (2) Septic arthritis: QUALIFIERS: Septic arthritis location: wrist Septic arthritis organism: due to unspecified organism Laterality: right Qualified Code(s): M00.9 - Pyogenic arthritis, unspecified (3) Pleural effusion, left:
[2025-07-23 10:28] LABS: Anion Gap 12 (5-15); BUN 11 mg/dL (4-19); BUN/Creat Ratio 22.2 RATIO (10-20); Calcium,Total 9.4 mg/dL (7.6-11.0); Carbon Dioxide 21.2 mmol/L (21.0-32.0); Chloride 101 mmol/L (98-108); Estimated Creatinine Clearance 51.75 ml/min (50-250); Glucose 196 mg/dL (70-99); Potassium 3.8 mmol/L (3.3-5.1)
[2025-07-23] MEDS: Vancomycin HCl 1,250 MG in 0.9% Normal Saline (250mL Bag) 250 ML 167 MG IV ×2 (11:04→22:11)
--- NOTE | 2025-07-23 16:03 | PN.SURG_ITS ---
Subjective Subjective Doing well. Pain is much improved. Objective Data Objective Data Vital Signs: Vital Signs Temp Pulse Resp BP Pulse Ox O2 Del Method O2 Flow Rate 98 F 80 16 110/44 L 96 Room Air 2 07/23/25 06:34 07/23/25 06:34 07/23/25 06:34 07/23/25 06:34 07/23/25 08:30 07/23/25 10:00 07/22/25 06:00 FiO2 21 07/17/25 09:07 Oxygen Flow Rate (L/min) 2 Oxygen Delivery Method Room Air Weight: 112 lb 10.499 oz Body Mass Index (BMI) 20.7 Intake & Output: Intake and Output for Last 24 Hours 07/21/25 07/22/25 07/23/25 23:59 23:59 23:59 Intake Total 1070 / 1220 1135 / 1135 1760 / 1760 Balance 1070 / 1220 1135 / 1135 1760 / 1760 Lab / Micro Data 07/23/25 09:26 07/23/25 09:26 Labs: Laboratory Results - last 24 hr 07/22/25 21:28: Vancomycin Trough 18.1 H 07/23/25 09:26: WBC 16.1 H, RBC 3.04 L, Hgb 8.9 L, Hct 26.9 L, MCV 88.5, MCH 29.3, MCHC 33.1, RDW Std Deviation 46.4 H, RDW Coeff of Johnny 14.3, Plt Count 482 H, MPV 9.0, Sodium 134, Potassium 3.8, Chloride 101, Carbon Dioxide 21.2, Anion Gap 12, BUN 11, Creatinine 0.49 L, Estim Creat Clear Calc 51.75, Est GFR (MDRD) Non-Af 102, BUN/Creatinine Ratio 22.2 H, Glucose 196 H, Calcium 9.4 Micro: Microbiology 07/20/25 Unknown Fluid - Thoracentesis Fluid Gram Stain - Final 07/20/25 Unknown Fluid - Thoracentesis Fluid Body Fluid Culture - Preliminary No growth-Final to follow 07/20/25 Unknown Fluid - Thoracentesis Fluid Anaerobic Culture - Preliminary No growth in 48 hours. 07/17/25 Unknown Tissue - Incision site Gram Stain - Final 07/17/25 Unknown Tissue - Incision site Wound Culture - Final No growth aerobically. 07/17/25 Unknown Tissue - Incision site Anaerobic Culture - Final No growth in 5 days. 07/17/25 Unknown Incision/Surgical Site Gram Stain - Final 07/17/25 Unknown Incision/Surgical Site Wound Culture - Final No growth aerobically. 07/17/25 Unknown Incision/Surgical Site Anaerobic Culture - Final No growth in 5 days. 07/17/25 Unknown Incision/Surgical Site Gram Stain - Final 07/17/25 Unknown Incision/Surgical Site Wound Culture - Final No growth aerobically. 07/17/25 Unknown Incision/Surgical Site Anaerobic Culture - Final No growth in 5 days. 07/17/25 Unknown Incision/Surgical Site Gram Stain - Final 07/17/25 Unknown Incision/Surgical Site Wound Culture - Final No growth aerobically. 07/17/25 Unknown Incision/Surgical Site Anaerobic Culture - Final No growth in 5 days. 07/16/25 17:35 Blood Culture (Wb) - Left Hand Blood Culture - Final No growth in 5 days. 07/18/25 15:40 Stool Stool Occult Blood (MAURICIO) - Final Physical Exam Narrative Right upper Extremity Inspection:No purulence. Less swelling. All erythema has subsided. Palpation: No pain with axial loading of the MCP joint of the right index finger and the wrist. Motor: Unable to make a full fist secondary to pain from the incisions, but moving the hand/wrist. Sensory: Intact to light touch on the radial and ulnar borders. Vascular: Finger tips are warm and well perfused with <2 second capillary refill. Assessment & Plan Assessment/Plan (1) Septic finger of right hand: (2) Septic arthritis: QUALIFIERS: Septic arthritis location: wrist Septic arthritis organism: due to unspecified organism Laterality: right Qualified Code(s): M 00.9 - Pyogenic arthritis, unspecified PLAN: Plan Dry dressing OK to DC soaks F/u cultures. Agree with ID consult since NGTD on cultures Continue elevation PSU to follow
[2025-07-23 17:27] VITALS: BP 127/71; PULSE 70; RESP 16; TEMP 36.6; O2SAT 92
[2025-07-23 21:00] VITALS: PULSE 70; RESP 16; O2SAT 92; BMI 20.7
[2025-07-23] MEDS: Niacin SA 500 MG Tablet PO (21:09)
[2025-07-23] MEDS: 0.9% Saline Lock 10 ML Syringe IV (22:12)
[2025-07-24 06:00] VITALS: BP 106/51; PULSE 86; RESP 18; TEMP 36.7; O2SAT 96
[2025-07-24] MEDS: Dorzolamide HCL/Timolol 10 ml Bottle 1 DRP EACH EYE ×3 (07:07→22:26)
[2025-07-24] MEDS: Lactobacillis Acidophilus 1 CAP PO ×2 (08:38→22:26)
[2025-07-24] MEDS: Arthritis Pain Compound 60 CLICK TUBE TOPICAL ×2 (08:39→22:26)
[2025-07-24] MEDS: Lidocaine 5% Patch 3 PATCH TOPICAL (08:40)
[2025-07-24] MEDS: 0.9% Saline Lock 10 ML Syringe IV ×2 (09:18→22:55)
[2025-07-24] MEDS: Ceftriaxone 2 GM in 0.9% Normal Saline (50mL MB+) 50 ML IV (09:18)
[2025-07-24] MEDS: Vancomycin HCl 1,250 MG in 0.9% Normal Saline (250mL Bag) 250 ML 167 MG IV (10:06)
[2025-07-24 10:56] VITALS: BMI 20.7
[2025-07-24 17:43] VITALS: BP 113/62; PULSE 72; RESP 16; TEMP 36.5; O2SAT 97
[2025-07-24 22:03] LABS: Vancomycin, Trough Level 22.2 ug/mL (5.0-15.0)
--- NOTE | 2025-07-24 22:08 | PCM.RX.CS ---
Consult Antibiotic Management Pharmacy has been consulted to manage selected antibiotic: Vancomycin Type of Intervention Type of Consult: Follow-up Labs Labs: Sodium 134 mmol/L (133-145) 07/23/25 09:26 Potassium 3.8 mmol/L (3.3-5.1) 07/23/25 09:26 Chloride 101 mmol/L (98-108) 07/23/25 09:26 Carbon Dioxide 21.2 mmol/L (21.0-32.0) 07/23/25 09:26 Anion Gap 12 (5-15) 07/23/25 09:26 BUN 11 mg/dL (4-19) 07/23/25 09:26 Creatinine 0.49 mg/dL (0.70-1.20) L 07/23/25 09:26 Est GFR (MDRD) Non-Af 102 (>60) 07/23/25 09:26 BUN/Creatinine Ratio 22.2 RATIO (10-20) H 07/23/25 09:26 Glucose 196 mg/dL (70-99) H 07/23/25 09:26 Vancomycin Trough 22.2 ug/mL (5.0-15.0) H 07/24/25 21:28 Microbiology Microbiology: Microbiology 07/20/25 Unknown Fluid - Thoracentesis Fluid Gram Stain - Final 07/20/25 Unknown Fluid - Thoracentesis Fluid Body Fluid Culture - Final Culture exhibits no growth. 07/20/25 Unknown Fluid - Thoracentesis Fluid Anaerobic Culture - Preliminary No growth in 48 hours. 07/17/25 Unknown Tissue - Incision site Gram Stain - Final 07/17/25 Unknown Tissue - Incision site Wound Culture - Final No growth aerobically. 07/17/25 Unknown Tissue - Incision site Anaerobic Culture - Final No growth in 5 days. 07/17/25 Unknown Incision/Surgical Site Gram Stain - Final 07/17/25 Unknown Incision/Surgical Site Wound Culture - Final No growth aerobically. 07/17/25 Unknown Incision/Surgical Site Anaerobic Culture - Final No growth in 5 days. 07/17/25 Unknown Incision/Surgical Site Gram Stain - Final 07/17/25 Unknown Incision/Surgical Site Wound Culture - Final No growth aerobically. 07/17/25 Unknown Incision/Surgical Site Anaerobic Culture - Final No growth in 5 days. 07/17/25 Unknown Incision/Surgical Site Gram Stain - Final 07/17/25 Unknown Incision/Surgical Site Wound Culture - Final No growth aerobically. 07/17/25 Unknown Incision/Surgical Site Anaerobic Culture - Final No growth in 5 days. 07/16/25 17:35 Blood Culture (Wb) - Left Hand Blood Culture - Final No growth in 5 days. 07/18/25 15:40 Stool Stool Occult Blood (MAURICIO) - Final Goal Trough Goal Trough: 15-20 mcg/mL Pharmacy Plan for Drug Dosing Pharmacy Plan for Drug Dosing: Pharmacy Service will continue to monitor and adjust dosing as required. TROUGH 22.2 @ 11.5 HOURS. HOLD DOSE AND DRAW RANDOM LEVEL IN 8 HOURS Follow-Up Labs Follow-Up Labs: Trough: Vancomycin Date/Time Labs Ordered Labs to be done on [date and time ordered]: 07/25 @ 4652
[2025-07-24 22:15] VITALS: BMI 20.7
[2025-07-24] MEDS: Vancomycin Trough/Random Due 1 LAB MC (22:25)
[2025-07-24] MEDS: Niacin SA 500 MG Tablet PO (22:27)
[2025-07-25 05:29] VITALS: BP 118/72; PULSE 76; RESP 15; TEMP 36.5; O2SAT 97
[2025-07-25] MEDS: Vancomycin Trough/Random Due 1 LAB MC (06:11)
[2025-07-25] MEDS: Dorzolamide HCL/Timolol 10 ml Bottle 1 DRP EACH EYE ×3 (06:34→22:21)
[2025-07-25 06:35] LABS: Vancomycin, Random Level 15.8 ug/mL (0.0-15.0)
--- NOTE | 2025-07-25 06:41 | PCM.RX.CS ---
Consult Antibiotic Management Pharmacy has been consulted to manage selected antibiotic: Vancomycin Type of Intervention Type of Consult: Follow-up Labs Labs: Sodium 134 mmol/L (133-145) 07/23/25 09:26 Potassium 3.8 mmol/L (3.3-5.1) 07/23/25 09:26 Chloride 101 mmol/L (98-108) 07/23/25 09:26 Carbon Dioxide 21.2 mmol/L (21.0-32.0) 07/23/25 09:26 Anion Gap 12 (5-15) 07/23/25 09:26 BUN 11 mg/dL (4-19) 07/23/25 09:26 Creatinine 0.49 mg/dL (0.70-1.20) L 07/23/25 09:26 Est GFR (MDRD) Non-Af 102 (>60) 07/23/25 09:26 BUN/Creatinine Ratio 22.2 RATIO (10-20) H 07/23/25 09:26 Glucose 196 mg/dL (70-99) H 07/23/25 09:26 Vancomycin Trough 22.2 ug/mL (5.0-15.0) H 07/24/25 21:28 Random Vancomycin 15.8 ug/mL (0.0-15.0) H 07/25/25 05:32 Microbiology Microbiology: Microbiology 07/20/25 Unknown Fluid - Thoracentesis Fluid Gram Stain - Final 07/20/25 Unknown Fluid - Thoracentesis Fluid Body Fluid Culture - Final Culture exhibits no growth. 07/20/25 Unknown Fluid - Thoracentesis Fluid Anaerobic Culture - Preliminary No growth in 48 hours. 07/17/25 Unknown Tissue - Incision site Gram Stain - Final 07/17/25 Unknown Tissue - Incision site Wound Culture - Final No growth aerobically. 07/17/25 Unknown Tissue - Incision site Anaerobic Culture - Final No growth in 5 days. 07/17/25 Unknown Incision/Surgical Site Gram Stain - Final 07/17/25 Unknown Incision/Surgical Site Wound Culture - Final No growth aerobically. 07/17/25 Unknown Incision/Surgical Site Anaerobic Culture - Final No growth in 5 days. 07/17/25 Unknown Incision/Surgical Site Gram Stain - Final 07/17/25 Unknown Incision/Surgical Site Wound Culture - Final No growth aerobically. 07/17/25 Unknown Incision/Surgical Site Anaerobic Culture - Final No growth in 5 days. 07/17/25 Unknown Incision/Surgical Site Gram Stain - Final 07/17/25 Unknown Incision/Surgical Site Wound Culture - Final No growth aerobically. 07/17/25 Unknown Incision/Surgical Site Anaerobic Culture - Final No growth in 5 days. 07/16/25 17:35 Blood Culture (Wb) - Left Hand Blood Culture - Final No growth in 5 days. 07/18/25 15:40 Stool Stool Occult Blood (MAURICIO) - Final Goal Trough Goal Trough: 15-20 mcg/mL Pharmacy Plan for Drug Dosing Pharmacy Plan for Drug Dosing: Pharmacy Service will continue to monitor and adjust dosing as required. RANDOM LEVEL 15.8 @ 19.5 HOURS. START 1000MG Q8H AND DRAW TROUGH PRIOR TO 4TH DOSE Follow-Up Labs Follow-Up Labs: Trough: Vancomycin Date/Time Labs Ordered Labs to be done on [date and time ordered]: 07/26 @ 9471
[2025-07-25] MEDS: 0.9% Saline Lock 10 ML Syringe IV ×5 (07:04→23:45)
[2025-07-25] MEDS: Vancomycin HCl 1,000 MG in 0.9% Normal Saline (250mL Bag) 250 ML 250 MG IV ×3 (07:04→22:31)
[2025-07-25] MEDS: Lidocaine 5% Patch 3 PATCH TOPICAL (08:53)
[2025-07-25] MEDS: Lactobacillis Acidophilus 1 CAP PO ×2 (08:54→22:21)
[2025-07-25] MEDS: Arthritis Pain Compound 60 CLICK TUBE TOPICAL ×2 (08:54→22:21)
[2025-07-25] MEDS: Ceftriaxone 2 GM in 0.9% Normal Saline (50mL MB+) 50 ML IV (10:44)
[2025-07-25 16:21] VITALS: BMI 20.7
[2025-07-25 18:00] VITALS: BP 113/65; PULSE 73; RESP 17; TEMP 36.2; O2SAT 94
[2025-07-25] MEDS: Niacin SA 500 MG Tablet PO (22:22)
[2025-07-26 02:18] VITALS: BMI 20.7
[2025-07-26] MEDS: Dorzolamide HCL/Timolol 10 ml Bottle 1 DRP EACH EYE ×3 (05:24→21:30)
[2025-07-26 05:37] VITALS: BP 130/76; PULSE 78; RESP 16; TEMP 36.6; O2SAT 96
[2025-07-26 06:40] VITALS: O2SAT 96
--- NOTE | 2025-07-26 06:57 | PN.SURG_ITS ---
Subjective Subjective Pain controlled. Reports no pain in wrist, but in ulnar three digits (not operated). Objective Data Objective Data Vital Signs: Vital Signs Temp Pulse Resp BP Pulse Ox O2 Del Method O2 Flow Rate 97.8 F 78 16 130/76 H 96 Nasal Cannula 2 07/26/25 05:37 07/26/25 05:37 07/26/25 05:37 07/26/25 05:37 07/26/25 05:37 07/26/25 05:37 07/26/25 05:37 FiO2 21 07/17/25 09:07 Oxygen Flow Rate (L/min) 2 Oxygen Delivery Method Nasal Cannula Weight: 112 lb 10.499 oz Body Mass Index (BMI) 20.7 Intake & Output: Intake and Output for Last 24 Hours 07/24/25 07/25/25 07/26/25 23:59 23:59 23:59 Intake Total 1560 / 1560 1680 / 1680 Output Total 300 / 300 Balance 1560 / 1560 1380 / 1380 Lab / Micro Data 07/23/25 09:26 07/23/25 09:26 Micro: Microbiology 07/20/25 Unknown Fluid - Thoracentesis Fluid Gram Stain - Final 07/20/25 Unknown Fluid - Thoracentesis Fluid Body Fluid Culture - Final Culture exhibits no growth. 07/20/25 Unknown Fluid - Thoracentesis Fluid Anaerobic Culture - Final No anaerobic bacteria isolated. 07/17/25 Unknown Tissue - Incision site Gram Stain - Final 07/17/25 Unknown Tissue - Incision site Wound Culture - Final No growth aerobically. 07/17/25 Unknown Tissue - Incision site Anaerobic Culture - Final No growth in 5 days. 07/17/25 Unknown Incision/Surgical Site Gram Stain - Final 07/17/25 Unknown Incision/Surgical Site Wound Culture - Final No growth aerobically. 07/17/25 Unknown Incision/Surgical Site Anaerobic Culture - Final No growth in 5 days. 07/17/25 Unknown Incision/Surgical Site Gram Stain - Final 07/17/25 Unknown Incision/Surgical Site Wound Culture - Final No growth aerobically. 07/17/25 Unknown Incision/Surgical Site Anaerobic Culture - Final No growth in 5 days. 07/17/25 Unknown Incision/Surgical Site Gram Stain - Final 07/17/25 Unknown Incision/Surgical Site Wound Culture - Final No growth aerobically. 07/17/25 Unknown Incision/Surgical Site Anaerobic Culture - Final No growth in 5 days. 07/16/25 17:35 Blood Culture (Wb) - Left Hand Blood Culture - Final No growth in 5 days. 07/18/25 15:40 Stool Stool Occult Blood (MAURICIO) - Final Physical Exam Narrative Right upper Extremity Inspection:No purulence. Less swelling. All erythema has subsided. Serous drainage from wrist incision (open area), otherwise no drainage Palpation: No pain with axial loading of the MCP joint of the right index finger and the wrist. Motor: moving the hand/wrist. Sensory: Intact to light touch on the radial and ulnar borders. Vascular: Finger tips are warm and well perfused with <2 second capillary refill. Assessment & Plan Assessment/Plan (1) Septic finger of right hand: (2) Septic arthritis: QUALIFIERS: Septic arthritis location: wrist Septic arthritis organism: due to unspecified organism Laterality: right Qualified Code(s): M 00.9 - Pyogenic arthritis, unspecified PLAN: Plan Band aid as needed PSU to remove sutures tomorrow. F/u cultures. Agree with ID consult since NGTD on cultures Continue elevation PSU to follow
[2025-07-26 07:44] LABS: Hematocrit 27.7 % (37-47); Hemoglobin 8.8 g/dL (12.0-15.0); Immature Granulocytes Count 0.050 X10^3/uL (0.0-0.0); Mean Corp Hgb Conc 31.8 g/dL (32-36); Mean Corpuscular Volume 88.8 fL (81-99); Mean Platelet Vol. 8.9 fl (6.2-12.0); NRBC Flagged by Analyzer 0 % (0-5); Platelet Count 620 K/mm3 (150-450); RBC Distribution Width CV 13.9 % (11.6-14.6); RBC Distribution Width SD 45.1 fl (35.1-43.9); Red Blood Count 3.12 M/mm3 (4.2-5.4); White Blood Count 9.9 K/mm3 (4.4-11.0)
[2025-07-26 08:07] LABS: Anion Gap 12 (5-15); BUN 8 mg/dL (4-19); BUN/Creat Ratio 16.6 RATIO (10-20); CRP 47.10 mg/L (0.0-3.0); Calcium,Total 9.7 mg/dL (7.6-11.0); Carbon Dioxide 22.0 mmol/L (21.0-32.0); Chloride 104 mmol/L (98-108); Estimated Creatinine Clearance 51.75 ml/min (50-250); Glucose 106 mg/dL (70-99); Potassium 4.0 mmol/L (3.3-5.1); Vancomycin, Trough Level 25.2 ug/mL (5.0-15.0)
[2025-07-26] MEDS: Arthritis Pain Compound 60 CLICK TUBE TOPICAL ×2 (08:19→21:31)
[2025-07-26] MEDS: Lactobacillis Acidophilus 1 CAP PO ×2 (08:19→21:30)
[2025-07-26] MEDS: Lidocaine 5% Patch 3 PATCH TOPICAL (08:19)
--- NOTE | 2025-07-26 08:22 | PCM.RX.CS ---
Consult Antibiotic Management Pharmacy has been consulted to manage selected antibiotic: Vancomycin Type of Intervention Type of Consult: Follow-up Labs Labs: Sodium 138 mmol/L (133-145) 07/26/25 06:28 Potassium 4.0 mmol/L (3.3-5.1) 07/26/25 06:28 Chloride 104 mmol/L (98-108) 07/26/25 06:28 Carbon Dioxide 22.0 mmol/L (21.0-32.0) 07/26/25 06:28 Anion Gap 12 (5-15) 07/26/25 06:28 BUN 8 mg/dL (4-19) 07/26/25 06:28 Creatinine 0.46 mg/dL (0.70-1.20) L 07/26/25 06:28 Est GFR (MDRD) Non-Af 103 (>60) 07/26/25 06:28 BUN/Creatinine Ratio 16.6 RATIO (10-20) 07/26/25 06:28 Glucose 106 mg/dL (70-99) H 07/26/25 06:28 Vancomycin Trough 25.2 ug/mL (5.0-15.0) H 07/26/25 06:28 Random Vancomycin 15.8 ug/mL (0.0-15.0) H 07/25/25 05:32 Microbiology Microbiology: Microbiology 07/20/25 Unknown Fluid - Thoracentesis Fluid Gram Stain - Final 07/20/25 Unknown Fluid - Thoracentesis Fluid Body Fluid Culture - Final Culture exhibits no growth. 07/20/25 Unknown Fluid - Thoracentesis Fluid Anaerobic Culture - Final No anaerobic bacteria isolated. 07/17/25 Unknown Tissue - Incision site Gram Stain - Final 07/17/25 Unknown Tissue - Incision site Wound Culture - Final No growth aerobically. 07/17/25 Unknown Tissue - Incision site Anaerobic Culture - Final No growth in 5 days. 07/17/25 Unknown Incision/Surgical Site Gram Stain - Final 07/17/25 Unknown Incision/Surgical Site Wound Culture - Final No growth aerobically. 07/17/25 Unknown Incision/Surgical Site Anaerobic Culture - Final No growth in 5 days. 07/17/25 Unknown Incision/Surgical Site Gram Stain - Final 07/17/25 Unknown Incision/Surgical Site Wound Culture - Final No growth aerobically. 07/17/25 Unknown Incision/Surgical Site Anaerobic Culture - Final No growth in 5 days. 07/17/25 Unknown Incision/Surgical Site Gram Stain - Final 07/17/25 Unknown Incision/Surgical Site Wound Culture - Final No growth aerobically. 07/17/25 Unknown Incision/Surgical Site Anaerobic Culture - Final No growth in 5 days. 07/16/25 17:35 Blood Culture (Wb) - Left Hand Blood Culture - Final No growth in 5 days. 07/18/25 15:40 Stool Stool Occult Blood (MAURICIO) - Final Pharmacy Plan for Drug Dosing Pharmacy Plan for Drug Dosing: VANCOMYCIN LEVEL RECEIVED Current Vancomycin Dose: 1000mg Q8 Number of Doses Received: many Vancomycin Level: 25.2 mg/dL Hours Since Last Dose: 8 Renal Function: SCr 0.46 mg/dL, CrCl 51 mL/min Renal Function Trend: stable Vancomycin Plan/Comments: 8 hour trough is supratherapeutic at 25.2mg/dL (goal 15-20). Will hold dosing at this time and get a random level in 12 hours. Pending Level: 07/26/25 @ 1830 Pharmacy Service will continue to monitor and adjust dosing as required.
[2025-07-26] MEDS: Vancomycin Trough/Random Due 1 LAB MC ×2 (08:26→19:43)
--- NOTE | 2025-07-26 09:35 | PCM.CONS.P ---
FORM[facility]LY [facility] Medical History Left shoulder pain Glaucoma HLD (hyperlipidemia) HTN (hypertension) Poor dental hygiene Depression Dyslipidemia Stroke Home Medications ?Medication ?Instructions ?Recorded ?Last Taken ?Type aspirin 81 mg tablet 81 mg PO DAILY heart health 07/13/25 07/13/25 History atorvastatin 80 mg tablet (Lipitor) 80 mg PO QHS cholesterol 07/13/25 07/12/25 History [id number]-[id number] 333 mg-133 1 tab PO DAILY supplement 07/13/25 Unknown History mg-5 mg tablet clopidogrel 75 mg tablet (Plavix) 75 mg PO DAILY heart 07/13/25 07/13/25 History dorzolamide 22.3 mg-timolol 6.8 1 drp EACH EYE Q8H eyes 07/13/25 07/13/25 History mg/mL eye drops (Cosopt) mirtazapine 15 mg tablet (Remeron) 7.5 mg PO QHS apatite 07/13/25 Unknown History multivitamin with minerals-folic 1 tab PO DAILY supplement 07/13/25 Unknown History acid 80 mcg chewable tablet (Centrum Adult 50 Plus) Allergy/AdvReac Type Severity Reaction Status Date / Time No Known Allergies Allergy Verified 07/13/25 16:13 Family History Mother Breast cancer CVA (cerebral vascular accident) Diabetes type 2 Osteoporosis Surgical History Hx of cholecystectomy H/O: hysterectomy History of oophorectomy Social History household members: spouse and other details: Husbands name is Augustus. housing: other details: 2 story house with bedroom and BR on the second floor. number of children: 3 Smoking Status: Never smoker alcohol intake: never substance use type: does not use Homelessness:: Sheltered Prior Cardiac Testing/Procedures Prior Cardiac Testing/Procedures: Echocardiogram (EF is 65-70%) Addt'l Information Additional Findings: Pt does have a signficantly elevated CRP, though slightly improved from last study. Today is 47.1 whereas last was 52.3. Van trough is elevated . WBC's are WNL with Hemoglobin of 8.8, which is slighlty decreased from 9.3 on 07/19. DANIEL SANCHEZ Narrative Pt biggest complaint today is of pain. She states Right wrist and Left shoulder pain. The left shoulder is chronic for her and states that hte pain makes it difficult to work with therapies. Constitutional Constitutional: Reports change in weight, weakness, weight loss and other Details: states that the food here has no flavor. She states that she would be interested in taking supplements if they do not contain milk. She states that at home, she eats 3 small meals a day. She states interest in more frequent and smaller meals. She states that she has never been a big eater Eyes Eyes: Reports none ENT HEENT: Reports systems reviewed and no addt'l complaints, except as documented Cardiovascular Cardiovascular: Reports leg edema Respiratory/Chest Respiratory/Chest: Reports as per HPI and other Details: is utilizing IS when sitting. Nocturnal O2. Gastrointestinal Gastrointestinal: Reports other Details: decreased appetite. is interested in small frequent meals. she is on a cardiac diet and states that the food is too bland I recommended Mrs Conteh, which she states is too peppery she does enjoy salt. Recommend salt replacement with meals. She is open to supplements if it doesnt contain milk. Genitourinary Genitourinary: Reports as per HPI Musculoskeletal Musculoskeletal: Reports difficulty walking, extremity pain, joint pain, joint stiffness, joint swelling and other Details: participation in therapies is limited related to pain in L shoulder and R wrist. Integumentary Integumentary: Reports other Details: surgical incision to the R wrist. Neurologic Neurologic: Reports as per HPI and other Details: R facial droop and dysarthia Psychiatric Psychiatric: Reports depression Endocrine Endocrinology: Reports as per HPI Hematologic/Lymphatic Hematologic/Lymphatic: Reports as per HPI Allergic/Immunologic Allergic/Immunologic: Reports as per HPI Physical Exam Const oriented x3 and no apparent distress Constitutional Narrative: Pt is aao x 3. General Appearance: cooperative HEENT normocephalic Neck supple General: trachea midline Lymph Lymphatic: no lymphadenopathy noted Resp normal respiratory effort, normal air movement and clear to auscultation bilaterally Cardio regular rate, regular rhythm, S1 normal heart sound and S2 normal heart sound GI normal to inspection, nondistended, normoactive bowel sounds Extremity Extremity Narrative: osteoarthritis noted with deformity to hands. She has a surgical incision to the R wrist from I and D. Sutures in place are well approximated no drainage notes no errythema. General Extremity: clubbing Peripheral Pulses: Yes pulses 2+ throughout Skin Skin Narrative: surgica incision to the R wrist and R proximal thumb. edges well approximated no errythema or drainage noted. Neuro Neuro Narrative: pt is S/P CVA. Has R sided weakness with R facial drooping. Dysarthia noted. Gait (Neuro): unable to assess gait Psych Psych Narrative: flat affect. Pt initially denied depression but after discussion, she did admit to some depression related to being in the hospital and missing her cats. Pt would benefit from pet therapy while in the hosptial. Mood & Affect: depressed and flat affect Charges/Coding Palliative Care Palliative Care: [id number] New Pt Consult 80+ min HPI Current admission Current Code Status: Full code. Pt did confirm this in our discussion today Associated Diagnosis: Septic arthritis, Pain, decreased appetite, hospital acquired pneumonia, S/P CVA, debility, depression Consult Data Date of Consult: 07/26/25 Location of consult: In patient rehab Reason for referral: goals of care and pain Referral source: Dr. Egan Palliative care diagnosis (Summary list): depression, uncontrolled pain, decreased appetite Palliative care services/treatment (Accepted, as consult): pt agreed to accept services Case discussed with referring provider: pain management, diet and next steps HPI Narrative HPI Narrative: 07/26/25: Prior to meeting with the pt at bedside, I reviewed documentation, labs and radiological studies. I also met with referring physician, Dr. Egan. I then met with the pt, Raymond, at bedside. I introduced myself and the concept of Palliative care, in which she voluntarily accepted our services. Raymond initially denied having any depression or anxiety related to changes she is experiencing related to deficits from her CVA. After several minutes of discussion she then acknowledged that she does have some depression because she misses her cats and family. Per previous documentation, pt has been experiencing a lot of pain which has limited her participation in therapies in which she if no longer showing improvements and she has plateaued. I talked with the patient about what motivates her and her goals going forward. She states that she wants to return home as she misses her cats. We discussed what needs to happen in order to achieve her goals and that she may have to tolerate some pain. She acknowledges that the pain is a limiting factor and that she is open to tolerating a 5/10 pain to be able to work with therapy, We discussed that she should receive her pain medications 1 hour prior to therapy to assist with her being able to tolerate it better. I also recommend lidocaine patch to the L shoulder. We discussed her pets which are a motivating factor of her wanting to return home. She understands if she does not progress, she will need to go to SNF because she, currently, is not safe to return home. We discussed deep breathing exercises to help with pain management during therapy. Sitting in the chair, she states that her pain is currently a 4/10 but when working with therapy its a 9-10/10. After therapy she requires a Ramón to get back into bed. Raymond is, admittedly, not very active at home. Her does all of the cooking. She likes to sit in her chair and read magazines, watch TV and play with her cats. Raymond states that she is open to further conversations and to receiving palliative care services on an outpatient basis. All questions were answered. Pallitiave care will continue to follow. RAYMOND BERRY, is a 70 YO F with a PMH of HTN and glaucoma who presented to an ED on 07/08/25 c/o R side weakness and slurred speech. Sx had been present for at least 24 H but, had gotten worse. NC CTB showed a focal density in the L basal ganglia and no evidence of cortical infarct. NIH was 3 more mild facial droop, drift with the R leg and mild-mod dysarthria. She received loading doses of Plavix and ASA and was started on Atorvastatin 80 mg daily. TTE showed normal LV systolic function with a 65-70% EF. There was grade I diastolic dysfunction and the bubble study was negative for PFO/ASD. MRA of the head showed no LVO or significant flow limiting stenosis or aneurysm. MRI showed a 10mm X 4 mm area of restricted diffusion within the left putamen that extended cranially into the dubois radiata. There was aged related volume loss and evidence of ischemic white matter demyelination. LDL was 191. The DC summary states that she was diagnosed with HFpEF and depression which were new diagnoses. Neurology recommendations are for DAPT for 21 days then ASA alone. DC summary states that at the time of DC she had no evident focal neurologic deficits. She was transferred to the acute inpt rehab unit at [facility] on 07/13/25 for 3 hours of therapy daily to restore function/independence at or near her level prior to the the stroke. Palliative Assessment Advanced Directive - Current Admission Advance Directive: Advance Directive ON ADMISSION - REFERENCE Do you have a Healthcare No 07/15/25 10:33 Living Will? Do you have a Healthcare Power No 07/15/25 10:33 of Outpatient Physical Therapist Assistant? Do You Want Additional Declined 07/15/25 10:33 Information on Advanced Directives or Healthcare Proxy/DPOA comments: Pt has no formal DPOA but states that her , Jatin would be her decision maker in the event she is unable to make decisions for herself Psychosocial/Spiritual Information Living situation/Marital status: Raymond is and lives with her , daughter and 15 cats. Geographic location: [place], [place] Supports: Family Amish/Pricilla or spiritual preference: No formal adventist but identifies as Anglican Spiritual distress: denies Prior functional status: Pt states that she did not do much at home but she did tend to her plants and cats. Assistive devices at home: denies Cultrual issues: denies any additional needs Information about the patient as a person: Pt states that she enjoys reading magazines about animals and cats especially. Spending time with her 4 grandchildren. Tending to her plants and spending time with her 15 cats. Symptoms Palliative performance scale: 50- (mainly sit or lie down/cant do any work-extensive disease/consideralbe assistance needed/intake is reduced/full LOC) Palliative prognostic index: 4.5 (If PPI is greater than 6.0, survival is less than 3 weeks) Prognosis is guarded. Dyspnea symptoms: Mild (pt is wearing O2 at night at 2 liters. She did not wear O2 prior) Constipation symptoms: None Nausea symptoms: None Vomiting symptoms: None Depression symptoms: Moderate Anorexia symptoms: Mild Cough symptoms: Mild Insomnia symptoms: None Diarrhea symptoms: None (pt states that she will get loose stools if she ingests milk products ) Fatigue symptoms: Mild Weakness symptoms: Moderate Confusion symptoms: None Side Effects & Interventions: Pt states that she does have some depression related to the inability to be able to do things for herself. We did discuss motivation and discussed strategies for fighting through pain in order to achieve her goal of returning home. Objective Data Objective Data Vital Signs: Vital Signs Temp Pulse Resp BP Pulse Ox O2 Del Method O2 Flow Rate 97.8 F 78 16 130/76 H 96 Nasal Cannula 2 07/26/25 05:37 07/26/25 05:37 07/26/25 05:37 07/26/25 05:37 07/26/25 06:40 07/26/25 06:40 07/26/25 06:40 FiO2 21 07/17/25 09:07 Oxygen Flow Rate (L/min) 2 Oxygen Delivery Method Nasal Cannula Weight: 112 lb 10.499 oz Body Mass Index (BMI) 20.7 Intake & Output: Intake and Output for Last 24 Hours 07/24/25 07/25/25 07/26/25 23:59 23:59 23:59 Intake Total 1560 / 1560 1680 / 1680 Output Total 300 / 300 Balance 1560 / 1560 1380 / 1380 Lab / Micro Data Attestation: I reviewed the patient's lab results. Lab results narrative: CRP is elevated at 47.1 from 52.3, van trough is elevated at 25.2. Creatinine is low at 0.46. 07/26/25 06:28 07/26/25 06:28 Labs: Laboratory Results - last 24 hr 07/26/25 06:28: WBC 9.9, RBC 3.12 L, Hgb 8.8 L, Hct 27.7 L, MCV 88.8, MCH 28.2, MCHC 31.8 L, RDW Std Deviation 45.1 H, RDW Coeff of Johnny 13.9, Plt Count 620 H, MPV 8.9, Immature Gran % (Auto) 0.500, Neut % (Auto) 73.7 H, Lymph % (Auto) 12.3 L, Armstrong % (Auto) 9.5, Eos % (Auto) 2.9, Baso % (Auto) 1.1 H, Absolute Neuts (auto) 7.3, Absolute Lymphs (auto) 1.21, Nucleated RBC % 0, ESR 27, Sodium 138, Potassium 4.0, Chloride 104, Carbon Dioxide 22.0, Anion Gap 12, BUN 8, Creatinine 0.46 L, Estim Creat Clear Calc 51.75, Est GFR (MDRD) Non-Af 103, BUN/Creatinine Ratio 16.6, Glucose 106 H, Calcium 9.7, C-React Prot Ext Range 47.10 H, Vancomycin Trough 25.2 H Micro: Microbiology 07/20/25 Unknown Fluid - Thoracentesis Fluid Gram Stain - Final 07/20/25 Unknown Fluid - Thoracentesis Fluid Body Fluid Culture - Final Culture exhibits no growth. 07/20/25 Unknown Fluid - Thoracentesis Fluid Anaerobic Culture - Final No anaerobic bacteria isolated. 07/17/25 Unknown Tissue - Incision site Gram Stain - Final 07/17/25 Unknown Tissue - Incision site Wound Culture - Final No growth aerobically. 07/17/25 Unknown Tissue - Incision site Anaerobic Culture - Final No growth in 5 days. 07/17/25 Unknown Incision/Surgical Site Gram Stain - Final 07/17/25 Unknown Incision/Surgical Site Wound Culture - Final No growth aerobically. 07/17/25 Unknown Incision/Surgical Site Anaerobic Culture - Final No growth in 5 days. 07/17/25 Unknown Incision/Surgical Site Gram Stain - Final 07/17/25 Unknown Incision/Surgical Site Wound Culture - Final No growth aerobically. 07/17/25 Unknown Incision/Surgical Site Anaerobic Culture - Final No growth in 5 days. 07/17/25 Unknown Incision/Surgical Site Gram Stain - Final 07/17/25 Unknown Incision/Surgical Site Wound Culture - Final No growth aerobically. 07/17/25 Unknown Incision/Surgical Site Anaerobic Culture - Final No growth in 5 days. 07/16/25 17:35 Blood Culture (Wb) - Left Hand Blood Culture - Final No growth in 5 days. 07/18/25 15:40 Stool Stool Occult Blood (MAURICIO) - Final Social Homelessness:: Sheltered Impressions & Recommendations Patient & Family Issues discussed with the patient and family: no family present Patient goal: Pts main goal is to return home to her family and cats. We did discuss the need to fight through some pain in order to achieve her goal of returning home, Pt states understanding Family goal: no family present Ethical & Legal Ethical and legal: no legal DPOA. Impressions Impressions: Depression pain (chronic and acute) debility CVA decreased appetite Recommentation Palliative recommendations: Medical management per primary medical team. -continue Duloxetine for depression and assistance with pain management -continue scheduled Tylenol and Tramadol. Recommend that pt receive Tramadol 1 hour prior to participating with therapy. -Pt would benefit from stroke support group outpatient -recommend lidocaine patch to the L shoulder for rotator cuff pain unrelieved by scheduled pain medications. -Recommend small frequent meals, similar to what she does at home. Dr. Egan is OK with the addition of Na+ to the patients diet. I did change the patients diet to low fat, per Dr. Egan. -Pt is open to continued Palliative care outpatient for symptom management and extra layer of support going forward. - Encouter Achieved as a result of this Palliative Care Encounter: [ [id number])=152m inutes were spent in total for this visit which consisted, primarily of counseling and education dealing with the complex and emotionally intense issues of symptom management and palliative care in the setting of serious and potentially life-threatening illness. Review of documentation, labs and radiological studies. ?Patient/family had the opportunity to ask questions Plan (1) Osteoarthritis: QUALIFIERS: Osteoarthritis location: multiple joints Osteoarthritis type: primary Qualified Code(s): M15.0 - Primary generalized (osteo)arthritis PLAN: -continue scheduled pain medications as ordered -be sure pt receives pain medications 1 hour prior to working with therapy -deep breathing exercises -daily motiviaitonal discussion and remider of goal to return home' -lidocaine patch to L shoulder -continue arthritis creme (2) Right hand pain: PLAN: as above (3) Septic arthritis: QUALIFIERS: Septic arthritis location: wrist Septic arthritis organism: due to unspecified organism Laterality: right Qualified Code(s): M00.9 - Pyogenic arthritis, unspecified PLAN: as above (4) Right wrist pain: PLAN: as above (5) Left shoulder pain: QUALIFIERS: Chronicity: chronic Qualified Code(s): M25.512 - Pain in left shoulder; G89.29 - Other chronic pain PLAN: as above (6) Depression: QUALIFIERS: Depression Type: unspecified Qualified Code(s): F32.A - Depression, unspecified PLAN: -continue Duluxatine as ordered -change diet to low fat low cholesterol, that way pt can add salt to her diet and improve yemi of eating -recommend outpatient Stroke support group -recommend pet therapy on days it is available (7) Hemiparesis of right dominant side due to cerebral infarction: PLAN: -continue with therapies (8) Debility: PLAN: -continue with therapies -continued dialy motivational discussions PLAN: Plan Pt is agreeable to continue palliative care visits for continued support during hospitalization Pt does need daily motivation and support to assist in success of her therapy and to discuss her pain and how best to manage going forward. Will continue to follow
[2025-07-26] MEDS: Ceftriaxone 2 GM in 0.9% Normal Saline (50mL MB+) 50 ML IV (09:46)
[2025-07-26] MEDS: 0.9% Normal Saline (250mL Bag) 250 ML 15 ML IV (09:55)
[2025-07-26] MEDS: 0.9% Saline Lock 10 ML Syringe IV ×2 (09:56→21:41)
--- NOTE | 2025-07-26 09:56 | PCM.PROGNOTE ---
Subjective Subjective Afebrile VSS -blood pressure for the past 48 hours has ranged from 1 106/51 to 130/76. Heart rate is within normal limits. Maintaining appropriate oxygen saturation on RA Oral intake - FOOD good FLUIDS poor Discussed with nursing -remains incontinent of urine and stool. Reviewed the THERAPY notes Medication list reviewed. All lab from today was personally reviewed. The white blood cell count is 9.9, down from 16.1 on 07/23/2025. Hemoglobin is stable at 8.8. Platelets are increased at 620,000. Sodium and potassium are within normal limits. The BUN is 8 with a creatinine of 0.46 which is stable. CRP is 47.1 which is down from 52.31-week ago. It was 98.7 on 07/16/2025. ESR today is 27 which is normal. MARLO and rheumatoid factor were both negative. Continues to c/o multiple areas of pain.....R wrist, Left shoulder, knees, etc. she denies chest pain, shortness of breath, palpitations, lightheadedness, nausea/vomiting (this has improved with Protonix.....she has not taken any Zofran since it was ordered for nausea. Denies dysuria and calf pain. Denies vaginal discharge or itching. No painful swallowing. Therapy is using a Ramón to transfer to the chair........due to knee pain which is chronic. there is no redness of the knees and no increased warmth to touch. No effusion detected. Having some loose stool......has been refusing Senna. She is not taking any other stool softeners. This is not really consistent with C. DIFF. Vascepa can cause diarrhea. Will try holding this medicartion for a few days to see if diarrhea improves. If it does not will check fecal leuko's, enteric pathogen panel and C. DIFF. Objective Data Objective Data Vital Signs: Vital Signs Temp Pulse Resp BP Pulse Ox O2 Del Method O2 Flow Rate 97.8 F 78 16 130/76 H 96 Nasal Cannula 2 07/26/25 05:37 07/26/25 05:37 07/26/25 05:37 07/26/25 05:37 07/26/25 06:40 07/26/25 06:40 07/26/25 06:40 FiO2 21 07/17/25 09:07 Oxygen Flow Rate (L/min) 2 Oxygen Delivery Method Nasal Cannula Weight: 112 lb 10.499 oz Body Mass Index (BMI) 20.7 Intake & Output: Intake and Output for Last 24 Hours 07/24/25 07/25/25 07/26/25 23:59 23:59 23:59 Intake Total 1560 / 1560 1680 / 1680 Output Total 300 / 300 Balance 1560 / 1560 1380 / 1380 Lab / Micro Data 07/26/25 06:28 07/26/25 06:28 Labs: Laboratory Results - last 24 hr 07/26/25 06:28: WBC 9.9, RBC 3.12 L, Hgb 8.8 L, Hct 27.7 L, MCV 88.8, MCH 28.2, MCHC 31.8 L, RDW Std Deviation 45.1 H, RDW Coeff of Johnny 13.9, Plt Count 620 H, MPV 8.9, Immature Gran % (Auto) 0.500, Neut % (Auto) 73.7 H, Lymph % (Auto) 12.3 L, [place] % (Auto) 9.5, Eos % (Auto) 2.9, Baso % (Auto) 1.1 H, Absolute Neuts (auto) 7.3, Absolute Lymphs (auto) 1.21, Nucleated RBC % 0, ESR 27, Sodium 138, Potassium 4.0, Chloride 104, Carbon Dioxide 22.0, Anion Gap 12, BUN 8, Creatinine 0.46 L, Estim Creat Clear Calc 51.75, Est GFR (MDRD) Non-Af 103, BUN/Creatinine Ratio 16.6, Glucose 106 H, Calcium 9.7, C-React Prot Ext Range 47.10 H, Vancomycin Trough 25.2 H Micro: Microbiology 07/20/25 Unknown Fluid - Thoracentesis Fluid Gram Stain - Final 07/20/25 Unknown Fluid - Thoracentesis Fluid Body Fluid Culture - Final Culture exhibits no growth. 07/20/25 Unknown Fluid - Thoracentesis Fluid Anaerobic Culture - Final No anaerobic bacteria isolated. 07/17/25 Unknown Tissue - Incision site Gram Stain - Final 07/17/25 Unknown Tissue - Incision site Wound Culture - Final No growth aerobically. 07/17/25 Unknown Tissue - Incision site Anaerobic Culture - Final No growth in 5 days. 07/17/25 Unknown Incision/Surgical Site Gram Stain - Final 07/17/25 Unknown Incision/Surgical Site Wound Culture - Final No growth aerobically. 07/17/25 Unknown Incision/Surgical Site Anaerobic Culture - Final No growth in 5 days. 07/17/25 Unknown Incision/Surgical Site Gram Stain - Final 07/17/25 Unknown Incision/Surgical Site Wound Culture - Final No growth aerobically. 07/17/25 Unknown Incision/Surgical Site Anaerobic Culture - Final No growth in 5 days. 07/17/25 Unknown Incision/Surgical Site Gram Stain - Final 07/17/25 Unknown Incision/Surgical Site Wound Culture - Final No growth aerobically. 07/17/25 Unknown Incision/Surgical Site Anaerobic Culture - Final No growth in 5 days. 07/16/25 17:35 Blood Culture (Wb) - Left Hand Blood Culture - Final No growth in 5 days. 07/18/25 15:40 Stool Stool Occult Blood (MAURICIO) - Final Physical Exam Const alert Constitutional Narrative: Pleasant. Does not appear to be in any distress. HEENT HEENT Narrative: Thrush resolved with Mycelex. Mucous membranes are more moist and she has somewhat better fluid intake but, needs a lot of encouragement to increase fluids. Resp normal respiratory effort and clear to auscultation bilaterally Resp Narrative: No conversational dyspnea. Effort and Inspection: Negative for tachypneic Cardio regular rate and regular rhythm Cardio Narrative: 1/6 GABBI at the second RICS which radiates to the LLSB and the apex. No ectopy. No gallop and no rub. Occasional ectopic. GI normal to inspection, nondistended, normoactive bowel sounds, soft to palpation and non-tender Extremity Extremity Narrative: She has bony enlargement of both knees secondary to osteoarthritis. There is no erythema and no significant increased warmth to touch. Right knee is more enlarged than the left. No pitting edema of the ankles. Denies calf tenderness. The R wrist still has a few sutures. There is no dehiscence and no purulent DC. No erythema. She has increased ROM. there is still some mild swelling. Skin Rashes: no rashes Psych Psych Narrative: Cooperative but, does not seem very motivated to get more active. Wants to go home but, at this point there is no way she could go home.....she is requiring too much assistance and therapy is having to use a ramón lift Assessment & Plan Assessment/Plan (1) Septic arthritis: QUALIFIERS: Septic arthritis location: wrist Septic arthritis organism: due to unspecified organism Laterality: right Qualified Code(s): M00.9 - Pyogenic arthritis, unspecified (2) Pleural effusion, left: (3) Debility: (4) Ischemic cerebrovascular accident (CVA): (5) Dysarthria due to acute cerebrovascular accident (CVA): (6) Hemiparesis of right dominant side due to cerebral infarction: (7) HTN (hypertension): QUALIFIERS: Hypertension type: primary hypertension Qualified Code(s): I10 - Essential (primary) hypertension (8) HLD (hyperlipidemia): QUALIFIERS: Hyperlipidemia type: mixed hyperlipidemia Qualified Code(s): E78.2 - Mixed hyperlipidemia (9) Glaucoma: QUALIFIERS: Glaucoma type: unspecified Laterality: bilateral Qualified Code(s): H40.9 - Unspecified glaucoma (10) Ankle edema: (11) Poor dental hygiene: (12) Depression: QUALIFIERS: Depression Type: unspecified Qualified Code(s): F32.A - Depression, unspecified (13) Grade I diastolic dysfunction: (14) Low HDL (under 40): (15) Hypertriglyceridemia: (16) Left shoulder pain: QUALIFIERS: Chronicity: chronic Qualified Code(s): M25.512 - Pain in left shoulder; G89.29 - Other chronic pain (17) Hospital acquired PNA: (18) Parapneumonic effusion: PLAN: Thoracentesis fluid consistent with exudate. with the IV antibiotics the effusion is much improved. She is not coughing and she denies SOB. (19) Osteoarthritis: QUALIFIERS: Osteoarthritis location: multiple joints Osteoarthritis type: primary Qualified Code(s): M15.0 - Primary generalized (osteo)arthritis PLAN: Plan 1. Continue therapy 2. Palliative care consult 3. Continue duloxetine, Tylenol, tramadol, lidocaine patches and compounded arthritis cream for pain. She has had chronic pain for years and took OTC medications. She has a known hx of severe OA on the left shoulder and rotator cuff tendinopathy. Injection did not help. she is tolerating the Cymbalta without any adverse side effects at this point. In another few days if she continues to tolerate will consider increasing the dose to 30 mg daily. Many of her joint complaints have been present for years. Was not very active at home and did not seek treatment for pain/arthritis/rotator cuff pathology. 4. Continue ceftriaxone and vancomycin with a stop date of 08/07/2025. 5. Will likely need to go to SNF when the IV antibiotics are complete. 6. Hold VAscepa to see if the losse stool improves. Charges/Coding Visit Charges Inpatient E&M: 51210 Subs Hosp L1
[2025-07-26 11:25] VITALS: BMI 20.7
[2025-07-26 18:00] VITALS: BP 126/68; PULSE 70; RESP 17; TEMP 36.8; O2SAT 95
[2025-07-26 19:38] LABS: Vancomycin, Random Level 15.3 ug/mL (0.0-15.0)
[2025-07-26] MEDS: Niacin SA 500 MG Tablet PO (21:30)
[2025-07-26] MEDS: Vancomycin HCl 500 MG in 0.9% Normal Saline (100mL Bag) 100 ML 100 MG IV (21:31)
[2025-07-27 00:25] VITALS: PULSE 76; O2SAT 96
[2025-07-27 05:00] VITALS: BMI 20.7
[2025-07-27] MEDS: Vancomycin HCl 500 MG in 0.9% Normal Saline (100mL Bag) 100 ML 100 MG IV ×3 (05:34→22:54)
[2025-07-27] MEDS: 0.9% Saline Lock 10 ML Syringe IV ×2 (05:35→22:08)
[2025-07-27] MEDS: Dorzolamide HCL/Timolol 10 ml Bottle 1 DRP EACH EYE ×3 (05:38→22:06)
[2025-07-27] MEDS: Lidocaine 5% Patch 3 PATCH TOPICAL (05:53)
[2025-07-27 06:00] VITALS: BP 140/83; PULSE 71; RESP 17; TEMP 37.1; O2SAT 96
[2025-07-27] MEDS: Arthritis Pain Compound 60 CLICK TUBE TOPICAL ×2 (08:41→22:10)
[2025-07-27] MEDS: Lactobacillis Acidophilus 1 CAP PO ×2 (08:41→22:07)
[2025-07-27] MEDS: Ceftriaxone 2 GM in 0.9% Normal Saline (50mL MB+) 50 ML IV (08:43)
[2025-07-27 10:29] VITALS: O2SAT 95
--- NOTE | 2025-07-27 13:47 | NURSING ---
Per Dr. Smith- Sutures to be removed from right index finger knuckle and as well as the wrist area from a surgical washout by Sarah. Sutures removed from patient, patient tolerated well.
--- NOTE | 2025-07-27 14:19 | CASEMGMT ---
Social Work SW left VM with to follow up on DC plans. Pt's IV ATB are completed on 08/09, and IDT ready to set DC date. 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
[2025-07-27 15:00] VITALS: BMI 20.7
--- NOTE | 2025-07-27 15:38 | PN_ITS ---
Subjective Subjective Afebrile Vital signs stable Maintaining appropriate oxygen saturation on room air while awake. Using supplemental oxygen at night for desaturation with sleep on overnight trending pulse ox. Oral fluid intake remains poor despite much encouragement. Fluid intake ranges from 58 to 100%. Never refuses a meal. Denies nausea and has had no emesis. Denies epigastric pain. Still incontinent of stool and bowel movements. Denies cephalgia, lightheadedness, chest pain, palpitations, shortness of breath at rest, abdominal pain, dysuria and calf tenderness. Vascepa was placed on hold yesterday afternoon to see if it is the Vascepa that is causing liquid/diarrhea stool. she had a large soft stool this AM. Objective Data Objective Data Vital Signs: Vital Signs Temp Pulse Resp BP Pulse Ox O2 Del Method O2 Flow Rate 98.7 F 71 17 140/83 H 95 Nasal Cannula 1 07/27/25 06:00 07/27/25 06:00 07/27/25 06:00 07/27/25 06:00 07/27/25 10:29 07/27/25 10:29 07/27/25 10:29 FiO2 21 07/17/25 09:07 Oxygen Flow Rate (L/min) 1 Oxygen Delivery Method Nasal Cannula Weight: 112 lb 10.499 oz Body Mass Index (BMI) 20.7 Intake & Output: Intake and Output for Last 24 Hours 07/25/25 07/26/25 07/27/25 23:59 23:59 23:59 Intake Total 1680 / 1680 940 / 940 860 / 860 Output Total 300 / 300 Balance 1380 / 1380 940 / 940 860 / 860 Lab / Micro Data 07/26/25 06:28 07/26/25 06:28 Labs: Laboratory Results - last 24 hr 07/26/25 18:37: Random Vancomycin 15.3 H Micro: Microbiology 07/20/25 Unknown Fluid - Thoracentesis Fluid Gram Stain - Final 07/20/25 Unknown Fluid - Thoracentesis Fluid Body Fluid Culture - Final Culture exhibits no growth. 07/20/25 Unknown Fluid - Thoracentesis Fluid Anaerobic Culture - Final No anaerobic bacteria isolated. 07/17/25 Unknown Tissue - Incision site Gram Stain - Final 07/17/25 Unknown Tissue - Incision site Wound Culture - Final No growth aerobically. 07/17/25 Unknown Tissue - Incision site Anaerobic Culture - Final No growth in 5 days. 07/17/25 Unknown Incision/Surgical Site Gram Stain - Final 07/17/25 Unknown Incision/Surgical Site Wound Culture - Final No growth aerobically. 07/17/25 Unknown Incision/Surgical Site Anaerobic Culture - Final No growth in 5 days. 07/17/25 Unknown Incision/Surgical Site Gram Stain - Final 07/17/25 Unknown Incision/Surgical Site Wound Culture - Final No growth aerobically. 07/17/25 Unknown Incision/Surgical Site Anaerobic Culture - Final No growth in 5 days. 07/17/25 Unknown Incision/Surgical Site Gram Stain - Final 07/17/25 Unknown Incision/Surgical Site Wound Culture - Final No growth aerobically. 07/17/25 Unknown Incision/Surgical Site Anaerobic Culture - Final No growth in 5 days. 07/16/25 17:35 Blood Culture (Wb) - Left Hand Blood Culture - Final No growth in 5 days. 07/18/25 15:40 Stool Stool Occult Blood (MAURICIO) - Final Social Homelessness:: Sheltered Physical Exam Const alert Constitutional Narrative: Pleasant. Does not appear to be in any distress. Resp normal respiratory effort and clear to auscultation bilaterally Resp Narrative: No conversational dyspnea. Effort and Inspection: Negative for tachypneic Cardio regular rate and regular rhythm Cardio Narrative: 1/6 GABBI at the second RICS which radiates to the LLSB and the apex. No ectopy. No gallop and no rub. Occasional ectopic. GI normal to inspection, nondistended, normoactive bowel sounds, soft to palpation and non-tender Skin Rashes: no rashes Assessment & Plan Assessment/Plan (1) Septic arthritis: QUALIFIERS: Septic arthritis location: wrist Septic arthritis organism: due to unspecified organism Laterality: right Qualified Code(s): M 00.9 - Pyogenic arthritis, unspecified (2) Pleural effusion, left: (3) Debility: (4) Ischemic cerebrovascular accident (CVA): (5) Dysarthria due to acute cerebrovascular accident (CVA): (6) Hemiparesis of right dominant side due to cerebral infarction: (7) HTN (hypertension): QUALIFIERS: Hypertension type: primary hypertension Qualified Code(s): I10 - Essential (primary) hypertension (8) HLD (hyperlipidemia): QUALIFIERS: Hyperlipidemia type: mixed hyperlipidemia Qualified Code(s): E78.2 - Mixed hyperlipidemia (9) Depression: QUALIFIERS: Depression Type: unspecified Qualified Code(s): F32.A - Depression, unspecified (10) Left shoulder pain: QUALIFIERS: Chronicity: chronic Qualified Code(s): M25.512 - Pain in left shoulder; G89.29 - Other chronic pain (11) Hospital acquired PNA: (12) Parapneumonic effusion: PLAN: Plan 1. Continue therapy 2. She was seen by Dr. Smith today and he request that x-ray of the radial wrist to be done on Saturday. 3. Continue to hold Vascepa for another 1 to 2 days and if no diarrhea then consider restarting at a lower dose? 4. Continue duloxetine for depression and chronic pain management 5. Continue Rocephin and vancomycin 6. Consider changing tramadol to as needed later in the week. Charges/Coding Visit Charges Inpatient E&M: 37416 [facility] Hosp L1
[2025-07-27 17:32] VITALS: BP 142/74; PULSE 68; RESP 16; TEMP 36.8; O2SAT 96
[2025-07-27 20:10] VITALS: BMI 20.7
[2025-07-27] MEDS: Vancomycin Trough/Random Due 1 LAB MC (20:31)
[2025-07-27 21:12] LABS: Vancomycin, Trough Level 15.6 ug/mL (5.0-15.0)
[2025-07-27] MEDS: Niacin SA 500 MG Tablet PO (22:07)
--- NOTE | 2025-07-28 01:07 | PCM.RX.CS ---
Consult Antibiotic Management Pharmacy has been consulted to manage selected antibiotic: Vancomycin Type of Intervention Type of Consult: Follow-up Labs Labs: Sodium 138 mmol/L (133-145) 07/26/25 06:28 Potassium 4.0 mmol/L (3.3-5.1) 07/26/25 06:28 Chloride 104 mmol/L (98-108) 07/26/25 06:28 Carbon Dioxide 22.0 mmol/L (21.0-32.0) 07/26/25 06:28 Anion Gap 12 (5-15) 07/26/25 06:28 BUN 8 mg/dL (4-19) 07/26/25 06:28 Creatinine 0.46 mg/dL (0.70-1.20) L 07/26/25 06:28 Est GFR (MDRD) Non-Af 103 (>60) 07/26/25 06:28 BUN/Creatinine Ratio 16.6 RATIO (10-20) 07/26/25 06:28 Glucose 106 mg/dL (70-99) H 07/26/25 06:28 Vancomycin Trough 15.6 ug/mL (5.0-15.0) H 07/27/25 20:19 Random Vancomycin 15.3 ug/mL (0.0-15.0) H 07/26/25 18:37 Microbiology Microbiology: Microbiology 07/20/25 Unknown Fluid - Thoracentesis Fluid Gram Stain - Final 07/20/25 Unknown Fluid - Thoracentesis Fluid Body Fluid Culture - Final Culture exhibits no growth. 07/20/25 Unknown Fluid - Thoracentesis Fluid Anaerobic Culture - Final No anaerobic bacteria isolated. 07/17/25 Unknown Tissue - Incision site Gram Stain - Final 07/17/25 Unknown Tissue - Incision site Wound Culture - Final No growth aerobically. 07/17/25 Unknown Tissue - Incision site Anaerobic Culture - Final No growth in 5 days. 07/17/25 Unknown Incision/Surgical Site Gram Stain - Final 07/17/25 Unknown Incision/Surgical Site Wound Culture - Final No growth aerobically. 07/17/25 Unknown Incision/Surgical Site Anaerobic Culture - Final No growth in 5 days. 07/17/25 Unknown Incision/Surgical Site Gram Stain - Final 07/17/25 Unknown Incision/Surgical Site Wound Culture - Final No growth aerobically. 07/17/25 Unknown Incision/Surgical Site Anaerobic Culture - Final No growth in 5 days. 07/17/25 Unknown Incision/Surgical Site Gram Stain - Final 07/17/25 Unknown Incision/Surgical Site Wound Culture - Final No growth aerobically. 07/17/25 Unknown Incision/Surgical Site Anaerobic Culture - Final No growth in 5 days. 07/16/25 17:35 Blood Culture (Wb) - Left Hand Blood Culture - Final No growth in 5 days. 07/18/25 15:40 Stool Stool Occult Blood (MAURICIO) - Final Goal Trough Goal Trough: 15-20 mcg/mL Pharmacy Plan for Drug Dosing Pharmacy Plan for Drug Dosing: Pharmacy Service will continue to monitor and adjust dosing as required. TROUGH 15.6 @ 7 HOURS. NO CHANGES, FOLLOW UP TROUGH IN 2 DAYS Follow-Up Labs Follow-Up Labs: Trough: Vancomycin Date/Time Labs Ordered Labs to be done on [date and time ordered]: 07/29 @ 2030
[2025-07-28 02:10] VITALS: RESP 16; O2SAT 95
--- NOTE | 2025-07-28 03:11 | NURSING ---
2130: upon assessment of midline, 10mL NS flush was utilized and leakage was noted under midline dressing when it was flushed. Unable to get blood return. This nurse notified RN and Nursing Front End Developer. Due to vancomycin being due at 2100, nursing dehydrogenation supervisor advised this nurse not to use the midline until Dr. Huitron can evaluate it in the morning and to start a new saline lock for the doses on night shift manager. New SL placed in right forearm. Vancomycin administration time delayed due to midline malfunction.
[2025-07-28] MEDS: Dorzolamide HCL/Timolol 10 ml Bottle 1 DRP EACH EYE ×3 (04:47→19:58)
[2025-07-28] MEDS: Lidocaine 5% Patch 3 PATCH TOPICAL (04:47)
[2025-07-28] MEDS: Vancomycin HCl 500 MG in 0.9% Normal Saline (100mL Bag) 100 ML 100 MG IV ×3 (05:54→20:16)
[2025-07-28] MEDS: 0.9% Saline Lock 10 ML Syringe IV ×4 (05:56→20:15)
[2025-07-28 06:00] VITALS: BP 148/79; PULSE 78; RESP 16; TEMP 36.5; O2SAT 98
[2025-07-28] MEDS: Lactobacillis Acidophilus 1 CAP PO ×2 (07:51→19:58)
[2025-07-28 07:55] VITALS: O2SAT 94
[2025-07-28] MEDS: Arthritis Pain Compound 60 CLICK TUBE TOPICAL ×2 (07:58→19:59)
[2025-07-28] MEDS: Ceftriaxone 2 GM in 0.9% Normal Saline (50mL MB+) 50 ML IV (09:58)
[2025-07-28 10:00] VITALS: PULSE 78; RESP 16; O2SAT 98
--- NOTE | 2025-07-28 14:34 | PCM.PN.PAL ---
Subjective Subjective continued pain today, although better Objective Data Objective Data Vital Signs: Vital Signs Temp Pulse Resp BP Pulse Ox O2 Del Method O2 Flow Rate 97.7 F L 78 16 148/79 H 98 Room Air 2 07/28/25 06:00 07/28/25 10:00 07/28/25 10:00 07/28/25 06:00 07/28/25 10:00 07/28/25 10:00 07/28/25 07:55 FiO2 21 07/17/25 09:07 Oxygen Flow Rate (L/min) 2 Oxygen Delivery Method Room Air Weight: 112 lb 10.499 oz Body Mass Index (BMI) 20.7 Intake & Output: Intake and Output for Last 24 Hours 07/26/25 07/27/25 07/28/25 23:59 23:59 23:59 Intake Total 940 / 940 1350 / 1350 928.75 / 928.75 Output Total 1000 / 1000 Balance 940 / 940 350 / 350 928.75 / 928.75 Lab / Micro Data Attestation: I reviewed the patient's lab results. 07/26/25 06:28 07/26/25 06:28 Labs: Laboratory Results - last 24 hr 07/27/25 20:19: Vancomycin Trough 15.6 H Micro: Microbiology 07/20/25 Unknown Fluid - Thoracentesis Fluid Gram Stain - Final 07/20/25 Unknown Fluid - Thoracentesis Fluid Body Fluid Culture - Final Culture exhibits no growth. 07/20/25 Unknown Fluid - Thoracentesis Fluid Anaerobic Culture - Final No anaerobic bacteria isolated. 07/17/25 Unknown Tissue - Incision site Gram Stain - Final 07/17/25 Unknown Tissue - Incision site Wound Culture - Final No growth aerobically. 07/17/25 Unknown Tissue - Incision site Anaerobic Culture - Final No growth in 5 days. 07/17/25 Unknown Incision/Surgical Site Gram Stain - Final 07/17/25 Unknown Incision/Surgical Site Wound Culture - Final No growth aerobically. 07/17/25 Unknown Incision/Surgical Site Anaerobic Culture - Final No growth in 5 days. 07/17/25 Unknown Incision/Surgical Site Gram Stain - Final 07/17/25 Unknown Incision/Surgical Site Wound Culture - Final No growth aerobically. 07/17/25 Unknown Incision/Surgical Site Anaerobic Culture - Final No growth in 5 days. 07/17/25 Unknown Incision/Surgical Site Gram Stain - Final 07/17/25 Unknown Incision/Surgical Site Wound Culture - Final No growth aerobically. 07/17/25 Unknown Incision/Surgical Site Anaerobic Culture - Final No growth in 5 days. 07/16/25 17:35 Blood Culture (Wb) - Left Hand Blood Culture - Final No growth in 5 days. 07/18/25 15:40 Stool Stool Occult Blood (MAURICIO) - Final Social Homelessness:: Sheltered Physical Exam Const alert and oriented x3 General Appearance: cooperative and well kempt Orientation / Consciousness: awake, oriented to person, oriented to place and oriented to time Exam Limitations: no limitations Nutritional Appearance: thin HEENT normocephalic Mouth: oral and palatal mucosa normal Eyes General Eye: normal appearance of both eyes Neck General: normal visual inspection Resp Effort and Inspection: able to speak in complete sentences Auscultation: diminished lung sounds Cardio S1 normal heart sound and S2 normal heart sound GI normal to inspection, nondistended, normoactive bowel sounds Back/Spine no CVA tenderness Extremity Extremity Narrative: limited shoulder L and R wrist. Pain is ok while sitting Peripheral Pulses: Yes pulses 2+ throughout Right Upper Extremity: wrist Left Upper Extremity: shoulder joint Skin General Skin Exam: no breakdown Neuro oriented x3 Neuro Narrative: dysarthia Sensorium / Orientation: awake, alert, oriented to person, oriented to place and oriented to time Psych cooperative Attitude: calm Activity / Motor Behavior: appropriate eye contact Insight: limited Judgement: limited Charges/Coding Palliative Care Palliative Care: 83506 Follow up 35-49 min Consulation Summary Current admission Current Code Status: Full Code Associated Diagnosis: debility and pain Consult Data Date of Consult: 07/26/25 Location of consult: In patient rehab Reason for referral: goals of care and pain Referral source: Dr. Egan Palliative care diagnosis (Summary list): depression, uncontrolled pain, decreased appetite Palliative care services/treatment (Accepted, as consult): pt agreed to accept services Case discussed with referring provider: outpatient palliative care services Palliative Assessment Advanced Directive - Current Admission Advance Directive: Advance Directive ON ADMISSION - REFERENCE Do you have a Healthcare No 07/15/25 10:33 Living Will? Do you have a Healthcare Power No 07/15/25 10:33 of Environmental Monitoring Specialist? Do You Want Additional Declined 07/15/25 10:33 Information on Advanced Directives or Healthcare Proxy/DPOA comments: Jatin Symptoms Dyspnea symptoms: Moderate Constipation symptoms: Mild Nausea symptoms: None Vomiting symptoms: None Depression symptoms: Moderate Anorexia symptoms: None Cough symptoms: Mild Insomnia symptoms: None Diarrhea symptoms: None Fatigue symptoms: Moderate Weakness symptoms: Severe Confusion symptoms: None Impression & Recommendations Impressions Impressions: I spoke to Kalin Conti, comp field case manager and she is placing referral to outpatient palliative care for symptom management Recommentation Palliative recommendations: Medical management per primary medical team. -continue Duloxetine for depression and assistance with pain management -continue scheduled Tylenol and Tramadol. Recommend that pt receive Tramadol 1 hour prior to participating with therapy. -Pt would benefit from stroke support group outpatient -recommend lidocaine patch to the L shoulder for rotator cuff pain unrelieved by scheduled pain medications. -Recommend small frequent meals, similar to what she does at home. Dr. Egan is OK with the addition of Na+ to the patients diet. I did change the patients diet to low fat, per Dr. Egan. -Pt is open to continued Palliative care outpatient for symptom management and extra layer of support going forward. - Encouter Achieved as a result of this Palliative Care Encounter: [35 ] minutes were spent in total for this visit which consisted, primarily of counseling and education dealing with the complex and emotionally intense issues of symptom management and palliative care in the setting of serious and potentially life-threatening illness. Review of documentation, labs and radiological studies. ?Patient/family had the opportunity to ask questions Plan (1) Septic arthritis: QUALIFIERS: Septic arthritis location: wrist Septic arthritis organism: due to unspecified organism Laterality: right Qualified Code(s): M00.9 - Pyogenic arthritis, unspecified PLAN: medical mgmt per primary team (2) Left shoulder pain: QUALIFIERS: Chronicity: chronic Qualified Code(s): M25.512 - Pain in left shoulder; G89.29 - Other chronic pain PLAN: tramadol 1 hour prior to therapies (3) Right wrist pain: PLAN: as above (4) Palliative care encounter: PLAN: referral for outpatient palliative care . PLAN: Plan out patient palliative care
--- NOTE | 2025-07-28 15:08 | CASEMGMT ---
Addendum entered by Marilee Degroot 07/28/25 16:06: Referrals sent via [facility]. Original Note: Social Work SW phoned again to follow up on SNF choices. provided choices: [facility], [facility], [facility]. SW to send referrals and notify pt/ of outcome. Reiterated precert process for SNF. Pt is done with IV ATB on 08/07. Likely start precert on 08/09, and EDC 08/10. agreeable. SW will continue to follow. Marilee Degroot [employer]
[2025-07-28 18:00] VITALS: BP 149/81; PULSE 69; RESP 16; TEMP 36.4; O2SAT 91
[2025-07-28 19:55] VITALS: PULSE 78; RESP 16; BMI 20.7
[2025-07-28] MEDS: Niacin SA 500 MG Tablet PO (19:58)
[2025-07-28] MEDS: 0.9% Normal Saline (250mL Bag) 250 ML 15 ML IV (20:15)
[2025-07-29] MEDS: Vancomycin HCl 500 MG in 0.9% Normal Saline (100mL Bag) 100 ML 100 MG IV ×3 (05:21→21:51)
[2025-07-29] MEDS: Dorzolamide HCL/Timolol 10 ml Bottle 1 DRP EACH EYE ×3 (05:26→21:20)
[2025-07-29 06:00] VITALS: BP 142/75; PULSE 69; RESP 18; TEMP 37.6; O2SAT 96
[2025-07-29] MEDS: Lidocaine 5% Patch 3 PATCH TOPICAL (07:57)
[2025-07-29] MEDS: Lactobacillis Acidophilus 1 CAP PO ×2 (07:58→21:20)
[2025-07-29] MEDS: Arthritis Pain Compound 60 CLICK TUBE TOPICAL ×2 (07:58→21:21)
[2025-07-29 08:11] VITALS: BP 135/69; PULSE 59; RESP 18; TEMP 36.6; O2SAT 97
--- NOTE | 2025-07-29 08:17 | PCM.PROGNOTE ---
Subjective Subjective Charley was seen on team rounds today. Her Jatin participated by home. Afebrile - Temp at 6 AM today was 99.7 but on recheck it was 97.8. VSS -systolic blood pressures over the past 24 hours have ranged from 135-149. Diastolics have ranged from 69-81. Heart rate is within normal limits. Maintaining appropriate oxygen saturation on RA Oral intake - FOOD ate poorly for breakfast and supper yesterday but today he ate 75 to 100% of her breakfast. FLUIDS poor Always incontinent of urine but only sometimes incontinent of stool amount. Having 2 BM's daily.........this is improved since the Vascepa has been on hold. Discussed with nursing - no problems that need addressed Reviewed the THERAPY notes - She was able to do a stand pivot from the bed to the BSC today. Used the Ramón for transfer onto the rolling shower chair. Speech is improving and she is not so difficult to understand now. Thought processing is improving. She denies chest pain, shortness of breath, palpitations, cough, cephalgia, lightheadedness, nausea/vomiting/abdominal pain, calf pain and dysuria. Charley told me for the first time today that she is lactose intolerant and this is why she is having diarrhea. She had 3 BM's already today. Objective Data Objective Data Vital Signs: Vital Signs Temp Pulse Resp BP Pulse Ox O2 Del Method O2 Flow Rate 97.8 F 59 L 18 135/69 H 97 Room Air 2 07/29/25 08:11 07/29/25 08:11 07/29/25 08:11 07/29/25 08:11 07/29/25 08:11 07/29/25 08:11 07/29/25 06:28 FiO2 21 07/17/25 09:07 Oxygen Flow Rate (L/min) 2 Oxygen Delivery Method Room Air Weight: 112 lb 10.499 oz Body Mass Index (BMI) 20.7 Intake & Output: Intake and Output for Last 24 Hours 07/27/25 07/28/25 07/29/25 23:59 23:59 23:59 Intake Total 1350 / 1350 1443.75 / 1443.75 350 / 350 Output Total 1000 / 1000 Balance 350 / 350 1443.75 / 1443.75 350 / 350 Lab / Micro Data 07/26/25 06:28 07/26/25 06:28 Micro: Microbiology 07/20/25 Unknown Fluid - Thoracentesis Fluid Gram Stain - Final 07/20/25 Unknown Fluid - Thoracentesis Fluid Body Fluid Culture - Final Culture exhibits no growth. 07/20/25 Unknown Fluid - Thoracentesis Fluid Anaerobic Culture - Final No anaerobic bacteria isolated. 07/17/25 Unknown Tissue - Incision site Gram Stain - Final 07/17/25 Unknown Tissue - Incision site Wound Culture - Final No growth aerobically. 07/17/25 Unknown Tissue - Incision site Anaerobic Culture - Final No growth in 5 days. 07/17/25 Unknown Incision/Surgical Site Gram Stain - Final 07/17/25 Unknown Incision/Surgical Site Wound Culture - Final No growth aerobically. 07/17/25 Unknown Incision/Surgical Site Anaerobic Culture - Final No growth in 5 days. 07/17/25 Unknown Incision/Surgical Site Gram Stain - Final 07/17/25 Unknown Incision/Surgical Site Wound Culture - Final No growth aerobically. 07/17/25 Unknown Incision/Surgical Site Anaerobic Culture - Final No growth in 5 days. 07/17/25 Unknown Incision/Surgical Site Gram Stain - Final 07/17/25 Unknown Incision/Surgical Site Wound Culture - Final No growth aerobically. 07/17/25 Unknown Incision/Surgical Site Anaerobic Culture - Final No growth in 5 days. 07/16/25 17:35 Blood Culture (Wb) - Left Hand Blood Culture - Final No growth in 5 days. 07/18/25 15:40 Stool Stool Occult Blood (MAURICIO) - Final Social Homelessness:: Sheltered Physical Exam Const alert and no apparent distress Constitutional Narrative: pleasant and talkative. No grimacing and not restless. Resp normal respiratory effort and clear to auscultation bilaterally Resp Narrative: No conversational dyspnea. Effort and Inspection: Negative for tachypneic Cardio regular rate and regular rhythm Cardio Narrative: 1/6 GABBI at the second RICS which radiates to the LLSB and the apex. No ectopy. No gallop and no rub. Occasional ectopic. GI normal to inspection, nondistended, normoactive bowel sounds, soft to palpation and non-tender Extremity no calf tenderness Extremity Narrative: trace pitting edema of the ankle posterior to the PT area only. Controlled with MARYLOU hose. Suspect this is related to venous insufficiency and not using her legs..........wants to be transferred using a Ramón and not able to ambulate. Not really making progress with PT or OT. Skin Skin Narrative: Some redness of the heel with no skin breakdown. Lies in bed all day. Nursing has the feet elevated off the bed with pillows. Rashes: no rashes Assessment & Plan Assessment/Plan (1) Septic arthritis: QUALIFIERS: Septic arthritis location: wrist Septic arthritis organism: due to unspecified organism Laterality: right Qualified Code(s): M00.9 - Pyogenic arthritis, unspecified (2) Pleural effusion, left: (3) Debility: (4) Ischemic cerebrovascular accident (CVA): (5) Dysarthria due to acute cerebrovascular accident (CVA): (6) Hemiparesis of right dominant side due to cerebral infarction: (7) HTN (hypertension): QUALIFIERS: Hypertension type: primary hypertension Qualified Code(s): I10 - Essential (primary) hypertension (8) HLD (hyperlipidemia): QUALIFIERS: Hyperlipidemia type: mixed hyperlipidemia Qualified Code(s): E78.2 - Mixed hyperlipidemia (9) Depression: QUALIFIERS: Depression Type: unspecified Qualified Code(s): F32.A - Depression, unspecified (10) Left shoulder pain: QUALIFIERS: Chronicity: chronic Qualified Code(s): M25.512 - Pain in left shoulder; G89.29 - Other chronic pain (11) Hospital acquired PNA: (12) Parapneumonic effusion: PLAN: Plan 1. Continue therapy 2. Family was able to give the names of 3 SNF's she could go to at [place]. 3. Recheck weekly labs on Saturday. 4. X-ray of the right wrist ordered for tomorrow 5. change the Tramadol to 25 mg Q 8H PRN pain 5-10. 6. Add a lactose restriction to the current diet. She is getting CIB with lactose free milk as a supplement but, apparently she has also been getting milk too. 7. Restart the Vascepa. 8. Increase the Duloxetine to 30 mg daily tomorrow. Charges/Coding Visit Charges Inpatient E&M: 60566 Subs Hosp L2
[2025-07-29 08:18] VITALS: O2SAT 97
[2025-07-29] MEDS: 0.9% Saline Lock 10 ML Syringe IV ×2 (09:56→21:54)
[2025-07-29] MEDS: Ceftriaxone 2 GM in 0.9% Normal Saline (50mL MB+) 50 ML IV (10:02)
--- NOTE | 2025-07-29 13:45 | CASEMGMT ---
Social Work IDT met with patient at bedside and participated via phone, for Team meeting. Discussed patient's progress in PT/OT/ST/SN/MD. Educated to [facility] insurance with [employer] 07/30 and continued stay is not guaranteed with each review. Pt is on IV ATB >08/07. SW informed pt/hus that [facility] can accept. [facility] are reviewing. Pending bed availability and precert, DC date is undetermined - goal is by 08/10, if not sooner. Will continue to assist with coordinating DC plans. Marilee VIDAL
[2025-07-29 16:43] VITALS: BP 119/62; PULSE 71; RESP 16; TEMP 36.7; O2SAT 94
[2025-07-29] MEDS: Vancomycin Trough/Random Due 1 LAB MC (21:19)
[2025-07-29 21:20] VITALS: PULSE 71; RESP 16; O2SAT 94; BMI 20.7
[2025-07-29] MEDS: Niacin SA 500 MG Tablet PO (21:20)
[2025-07-29 21:27] LABS: Vancomycin, Trough Level 17.2 ug/mL (5.0-15.0)
--- NOTE | 2025-07-29 23:15 | PCM.RX.CS ---
Consult Antibiotic Management Pharmacy has been consulted to manage selected antibiotic: Vancomycin Type of Intervention Type of Consult: Follow-up Labs Labs: Sodium 138 mmol/L (133-145) 07/26/25 06:28 Potassium 4.0 mmol/L (3.3-5.1) 07/26/25 06:28 Chloride 104 mmol/L (98-108) 07/26/25 06:28 Carbon Dioxide 22.0 mmol/L (21.0-32.0) 07/26/25 06:28 Anion Gap 12 (5-15) 07/26/25 06:28 BUN 8 mg/dL (4-19) 07/26/25 06:28 Creatinine 0.46 mg/dL (0.70-1.20) L 07/26/25 06:28 Est GFR (MDRD) Non-Af 103 (>60) 07/26/25 06:28 BUN/Creatinine Ratio 16.6 RATIO (10-20) 07/26/25 06:28 Glucose 106 mg/dL (70-99) H 07/26/25 06:28 Vancomycin Trough 17.2 ug/mL (5.0-15.0) H 07/29/25 20:23 Random Vancomycin 15.3 ug/mL (0.0-15.0) H 07/26/25 18:37 Microbiology Microbiology: Microbiology 07/20/25 Unknown Fluid - Thoracentesis Fluid Gram Stain - Final 07/20/25 Unknown Fluid - Thoracentesis Fluid Body Fluid Culture - Final Culture exhibits no growth. 07/20/25 Unknown Fluid - Thoracentesis Fluid Anaerobic Culture - Final No anaerobic bacteria isolated. 07/17/25 Unknown Tissue - Incision site Gram Stain - Final 07/17/25 Unknown Tissue - Incision site Wound Culture - Final No growth aerobically. 07/17/25 Unknown Tissue - Incision site Anaerobic Culture - Final No growth in 5 days. 07/17/25 Unknown Incision/Surgical Site Gram Stain - Final 07/17/25 Unknown Incision/Surgical Site Wound Culture - Final No growth aerobically. 07/17/25 Unknown Incision/Surgical Site Anaerobic Culture - Final No growth in 5 days. 07/17/25 Unknown Incision/Surgical Site Gram Stain - Final 07/17/25 Unknown Incision/Surgical Site Wound Culture - Final No growth aerobically. 07/17/25 Unknown Incision/Surgical Site Anaerobic Culture - Final No growth in 5 days. 07/17/25 Unknown Incision/Surgical Site Gram Stain - Final 07/17/25 Unknown Incision/Surgical Site Wound Culture - Final No growth aerobically. 07/17/25 Unknown Incision/Surgical Site Anaerobic Culture - Final No growth in 5 days. 07/16/25 17:35 Blood Culture (Wb) - Left Hand Blood Culture - Final No growth in 5 days. 07/18/25 15:40 Stool Stool Occult Blood (MAURICIO) - Final Dosing Weight Weight used for dosin.1 kg Estimated Creatinine Clearance Estimated Creatinine Clearance: 52 Goal Trough Goal Trough: 15-20 mcg/mL Pharmacy Plan for Drug Dosing Pharmacy Plan for Drug Dosing: Vancomycin trough level of 17.2, drawn 6.3hrs post-dose, was within the target range of 15-20. Will continue dosing at 500mg q8h, and will draw another trough level in four days. Pharmacy Service will continue to monitor and adjust dosing as required. Follow-Up Labs Follow-Up Labs: Trough: Vancomycin Date/Time Labs Ordered Labs to be done on [date and time ordered]: 08/02/25 @2030
[2025-07-30] MEDS: Vancomycin HCl 500 MG in 0.9% Normal Saline (100mL Bag) 100 ML 100 MG IV ×3 (05:02→22:06)
[2025-07-30] MEDS: 0.9% Saline Lock 10 ML Syringe IV ×5 (05:03→22:06)
[2025-07-30 06:00] VITALS: BP 138/71; PULSE 76; RESP 16; TEMP 37.1; O2SAT 94; BMI 19.8
[2025-07-30] MEDS: Lidocaine 5% Patch 3 PATCH TOPICAL (06:11)
[2025-07-30] MEDS: Dorzolamide HCL/Timolol 10 ml Bottle 1 DRP EACH EYE ×3 (06:12→20:18)
--- NOTE | 2025-07-30 07:22 | RAD_ITS ---
PROCEDURE: HAND MIN 3 VIEWS 07/30/2025 REASON FOR EXAM: FOLLOW UP POST OP TECHNIQUE: HAND MIN 3 VIEWS Laterality: Right COMPARISON: None. FINDINGS: Bones: Osteopenia. Joints: Radiocarpal, 1st carpometacarpal and distal interphalangeal, and to a lesser degree metacarpophalangeal joint space narrowing with sclerosis consistent with osteoarthritis. No bony erosions. Soft tissues: No soft tissue swelling. RAD/Hand Min 3 Views IMPRESSION: No acute bony abnormalities. Osteoarthritis. Reading Location: [id number]
--- NOTE | 2025-07-30 07:39 | PN.SURG_ITS ---
Subjective Subjective No pain in wrist or index finger this morning. Objective Data Objective Data Vital Signs: Vital Signs Temp Pulse Resp BP Pulse Ox O2 Del Method O2 Flow Rate 98.8 F 76 16 138/71 H 94 Room Air 2 07/30/25 06:00 07/30/25 06:00 07/30/25 06:00 07/30/25 06:00 07/30/25 06:00 07/30/25 06:00 07/29/25 06:28 FiO2 21 07/17/25 09:07 Oxygen Flow Rate (L/min) 2 Oxygen Delivery Method Room Air Weight: 108 lb 7.479 oz Body Mass Index (BMI) 19.8 Intake & Output: Intake and Output for Last 24 Hours 07/28/25 07/29/25 07/30/25 23:59 23:59 23:59 Intake Total 1443.75 / 1443.75 1160 / 1160 170 / 170 Balance 1443.75 / 1443.75 1160 / 1160 170 / 170 Lab / Micro Data 07/26/25 06:28 07/26/25 06:28 Labs: Laboratory Results - last 24 hr 07/29/25 20:23: Vancomycin Trough 17.2 H Micro: Microbiology 07/20/25 Unknown Fluid - Thoracentesis Fluid Gram Stain - Final 07/20/25 Unknown Fluid - Thoracentesis Fluid Body Fluid Culture - Final Culture exhibits no growth. 07/20/25 Unknown Fluid - Thoracentesis Fluid Anaerobic Culture - Final No anaerobic bacteria isolated. 07/17/25 Unknown Tissue - Incision site Gram Stain - Final 07/17/25 Unknown Tissue - Incision site Wound Culture - Final No growth aerobically. 07/17/25 Unknown Tissue - Incision site Anaerobic Culture - Final No growth in 5 days. 07/17/25 Unknown Incision/Surgical Site Gram Stain - Final 07/17/25 Unknown Incision/Surgical Site Wound Culture - Final No growth aerobically. 07/17/25 Unknown Incision/Surgical Site Anaerobic Culture - Final No growth in 5 days. 07/17/25 Unknown Incision/Surgical Site Gram Stain - Final 07/17/25 Unknown Incision/Surgical Site Wound Culture - Final No growth aerobically. 07/17/25 Unknown Incision/Surgical Site Anaerobic Culture - Final No growth in 5 days. 07/17/25 Unknown Incision/Surgical Site Gram Stain - Final 07/17/25 Unknown Incision/Surgical Site Wound Culture - Final No growth aerobically. 07/17/25 Unknown Incision/Surgical Site Anaerobic Culture - Final No growth in 5 days. 07/16/25 17:35 Blood Culture (Wb) - Left Hand Blood Culture - Final No growth in 5 days. 07/18/25 15:40 Stool Stool Occult Blood (MAURICIO) - Final Social Homelessness:: Sheltered Physical Exam Narrative Right upper Extremity Inspection:No purulence. No swelling. No drainage or erythema over incisions. Sutures out. Healing well. Palpation: No pain with axial loading of the MCP joint of the right index finger and the wrist. Motor: moving the hand/wrist. Sensory: Intact to light touch on the radial and ulnar borders. Vascular: Finger tips are warm and well perfused with <2 second capillary refill. Assessment & Plan Assessment/Plan (1) Septic finger of right hand: (2) Septic arthritis: QUALIFIERS: Septic arthritis location: wrist Septic arthritis organism: due to unspecified organism Laterality: right Qualified Code(s): M 00.9 - Pyogenic arthritis, unspecified PLAN: Plan Keep open to air. No restrictions at this point. Follow ID recommendations. Xray today to make sure no osteomyelitis developed/developing If xray normal, [facility] to follow up in clinic in 2 weeks
[2025-07-30 07:42] VITALS: O2SAT 94
--- NOTE | 2025-07-30 08:00 | RAD_ITS ---
EXAM: XR Right Wrist Complete, 3 or More Views CLINICAL INDICATION: SWELLING/HX OF SEPTIC ARTHRITIS TECHNIQUE: Frontal, lateral and oblique views of the right wrist. COMPARISON: No relevant prior studies available. FINDINGS: BONES/JOINTS: Severe degenerative changes of the 1st carpometacarpal joint. Mild degenerative changes of the intercarpal joints. Widening of the scapholunate joint space concerning for ligamentous injury. Further evaluation with MRI may be beneficial. No acute fracture. No dislocation. SOFT TISSUES: Soft tissue swelling. No radiopaque foreign body. RAD/Wrist min 3 Views IMPRESSION: 1. Degenerative changes as above. 2. Widening of the scapholunate joint space concerning for ligamentous injury. Further evaluation with MRI may be beneficial. Reading Location: [facility]
[2025-07-30] MEDS: Lactobacillis Acidophilus 1 CAP PO ×2 (08:20→20:18)
[2025-07-30] MEDS: Arthritis Pain Compound 60 CLICK TUBE TOPICAL ×2 (08:20→20:20)
[2025-07-30] MEDS: Ceftriaxone 2 GM in 0.9% Normal Saline (50mL MB+) 50 ML IV (10:04)
--- NOTE | 2025-07-30 10:17 | PCM.PN.ID ---
Physical Exam Narrative Feeling better, hand improved, no fever, no n/v/d. Const alert and no apparent distress General Appearance: cooperative Resp normal air movement and clear to auscultation bilaterally Cardio regular rate and regular rhythm GI soft to palpation, non-tender and non-distended Skin Skin Narrative: R hand much improved swelling, incisions healing, no redness ID ID: Route of nutrition/ use of supplements: [] Nutritional Intake: [] IV Site: [] Cabrera Catheter: [] Assessment & Plan Assessment/Plan (1) Septic finger of right hand: PLAN: Surg cx neg so far. Cont vanc/ceftriaxone. Thoracentesis showed mild wbcs. Abx stop date planned for 08/07/25 for 3 weeks total post-op. Hand overall much improved. Will follow prn (2) Septic arthritis: QUALIFIERS: Septic arthritis location: wrist Septic arthritis organism: due to unspecified organism Laterality: right Qualified Code(s): M00.9 - Pyogenic arthritis, unspecified (3) Pleural effusion, left:
--- NOTE | 2025-07-30 12:08 | NURSING ---
Midline to Left upper arm leaking at the site and order to DC midline and taken out with no complications. PICC line insertion ordered and consent signed by patient and design/animation instructor called.
--- NOTE | 2025-07-30 15:30 | CASEMGMT ---
Social Work [facility] and [facility] do not have beds available. [facility] is [facility]. SW updated CC at approx 1130 and inquired about starting precert. - Followed up approx 1230 to inquire about palliative agency contracts in the facility for referral. - No response. Followed up at 1350 on precert and agency. No response as of this time. SW will follow up again following day. 08/03 Marilee VIDAL DIETITIAN HELPER
[2025-07-30 17:00] VITALS: BMI 19.8
[2025-07-30 17:56] VITALS: BP 140/84; PULSE 78; RESP 16; TEMP 36.4; O2SAT 96
[2025-07-30 19:40] VITALS: PULSE 78; RESP 16; O2SAT 96; BMI 19.8
[2025-07-30] MEDS: Niacin SA 500 MG Tablet PO (20:18)
[2025-07-31 02:00] VITALS: RESP 16; O2SAT 94
--- NOTE | 2025-07-31 02:07 | NURSING ---
Picc line inserted earlier by YUE Avila and was completed at 1830. YUE Avila called RU at 02:00 to say that he had a gut feeling that we should have a chest X-Ray to confirm placement. This PICC was used for an hs Vanc infusion and an 05:00 infusion will be due as well.
--- NOTE | 2025-07-31 02:14 | RAD_ITS ---
PROCEDURE: CHEST 1 VIEW (PORTABLE) 07/31/2025 REASON FOR EXAM: PICC LINE PLACEMENT TECHNIQUE: Frontal view of the chest. COMPARISON: Chest radiograph on 07/19/2025. FINDINGS: Improved bilateral basilar atelectatic pulmonary changes. Left PICC line is in good position with its tip in the superior vena cava. There is no demonstrated pleural abnormality. Enlarged cardiac silhouette. Normal mediastinum and hattie. Normal visualized pulmonary arteries. Atheromatous plaques of the visualized aortic arch and descending thoracic aorta. Diffuse spondylosis of the visualized thoracic spine. Normal visualized ribs, clavicles. Degenerative joint disease. There is no demonstrated abnormality of the visualized soft tissue structures of the upper abdomen. RAD/Chest 1 View (Portable) IMPRESSION: Left PICC line is in good position. Reading [facility]
[2025-07-31] MEDS: Vancomycin HCl 500 MG in 0.9% Normal Saline (100mL Bag) 100 ML 100 MG IV ×3 (05:35→20:56)
[2025-07-31] MEDS: 0.9% Saline Lock 10 ML Syringe IV ×5 (05:36→22:18)
[2025-07-31] MEDS: Dorzolamide HCL/Timolol 10 ml Bottle 1 DRP EACH EYE ×3 (05:46→21:05)
[2025-07-31] MEDS: Lidocaine 5% Patch 3 PATCH TOPICAL (05:47)
[2025-07-31 05:52] VITALS: BP 139/75; PULSE 79; RESP 17; TEMP 36.5; O2SAT 95
[2025-07-31] MEDS: Arthritis Pain Compound 60 CLICK TUBE TOPICAL ×2 (08:52→21:04)
[2025-07-31] MEDS: Lactobacillis Acidophilus 1 CAP PO ×2 (08:52→21:04)
[2025-07-31] MEDS: Ceftriaxone 2 GM in 0.9% Normal Saline (50mL MB+) 50 ML IV (09:08)
[2025-07-31] MEDS: 0.9% Normal Saline (250mL Bag) 250 ML 15 ML IV (13:23)
[2025-07-31 15:04] VITALS: BMI 19.8
[2025-07-31 16:53] VITALS: BP 118/68; PULSE 71; RESP 18; TEMP 36.8; O2SAT 94
[2025-07-31] MEDS: Niacin SA 500 MG Tablet PO (21:05)
[2025-08-01 00:05] VITALS: RESP 16; O2SAT 96
[2025-08-01 04:53] VITALS: BMI 19.8
[2025-08-01] MEDS: 0.9% Saline Lock 10 ML Syringe IV ×4 (05:14→22:18)
[2025-08-01] MEDS: Vancomycin HCl 500 MG in 0.9% Normal Saline (100mL Bag) 100 ML 100 MG IV ×3 (05:16→22:13)
[2025-08-01] MEDS: Lidocaine 5% Patch 3 PATCH TOPICAL (05:20)
[2025-08-01] MEDS: Dorzolamide HCL/Timolol 10 ml Bottle 1 DRP EACH EYE ×3 (05:20→19:42)
[2025-08-01 05:51] VITALS: BP 132/72; PULSE 78; RESP 16; TEMP 36.7; O2SAT 96
[2025-08-01] MEDS: Lactobacillis Acidophilus 1 CAP PO ×2 (08:16→19:42)
[2025-08-01] MEDS: Arthritis Pain Compound 60 CLICK TUBE TOPICAL ×2 (08:17→19:42)
--- NOTE | 2025-08-01 09:02 | PN_ITS ---
Subjective Subjective Afebrile VSS - Systolic is > 130 fairly often. Diastolics are always within goal. Maintaining appropriate oxygen saturation on RA Oral intake - FOOD good most of the time. Occasionally she will only eat 25 to 49% of her meal. FLUIDS good Discussed with nursing - no problems that need addressed Reviewed the THERAPY notes Medication list reviewed. Has not taken any tramadol since it was made as needed on 07/29/2025. Pain is adequately controlled with Tylenol. I reviewed the results of the hand x-ray done recently and there are no lytic lesions noted. I reviewed the chest x-ray done for PICC line placement and there were no infiltrates and no pleural effusions. Denies cephalgia, vertigo, lightheadedness, chest pain, shortness of breath, nausea/vomiting/abdominal pain, dysuria and calf tenderness. Objective Data Objective Data Vital Signs: Vital Signs Temp Pulse Resp BP Pulse Ox O2 Del Method O2 Flow Rate 98.0 F 78 16 132/72 H 96 Room Air 2 08/01/25 05:51 08/01/25 05:51 08/01/25 05:51 08/01/25 05:51 08/01/25 05:51 08/01/25 07:46 08/01/25 05:51 FiO2 21 07/17/25 09:07 Oxygen Flow Rate (L/min) 2 Oxygen Delivery Method Room Air Weight: 108 lb 7.479 oz Body Mass Index (BMI) 19.8 Intake & Output: Intake and Output for Last 24 Hours 07/30/25 07/31/25 08/01/25 23:59 23:59 23:59 Intake Total 1900 / 1900 2041 / 2041 470 / 470 Output Total 200 / 200 Balance 1900 / 1900 1841 / 1841 470 / 470 Lab / Micro Data 08/02/25 07:43 08/02/25 07:43 Micro: Microbiology 07/20/25 Unknown Fluid - Thoracentesis Fluid Gram Stain - Final 07/20/25 Unknown Fluid - Thoracentesis Fluid Body Fluid Culture - Final Culture exhibits no growth. 07/20/25 Unknown Fluid - Thoracentesis Fluid Anaerobic Culture - Final No anaerobic bacteria isolated. 07/17/25 Unknown Tissue - Incision site Gram Stain - Final 07/17/25 Unknown Tissue - Incision site Wound Culture - Final No growth aerobically. 07/17/25 Unknown Tissue - Incision site Anaerobic Culture - Final No growth in 5 days. 07/17/25 Unknown Incision/Surgical Site Gram Stain - Final 07/17/25 Unknown Incision/Surgical Site Wound Culture - Final No growth aerobically. 07/17/25 Unknown Incision/Surgical Site Anaerobic Culture - Final No growth in 5 days. 07/17/25 Unknown Incision/Surgical Site Gram Stain - Final 07/17/25 Unknown Incision/Surgical Site Wound Culture - Final No growth aerobically. 07/17/25 Unknown Incision/Surgical Site Anaerobic Culture - Final No growth in 5 days. 07/17/25 Unknown Incision/Surgical Site Gram Stain - Final 07/17/25 Unknown Incision/Surgical Site Wound Culture - Final No growth aerobically. 07/17/25 Unknown Incision/Surgical Site Anaerobic Culture - Final No growth in 5 days. 07/16/25 17:35 Blood Culture (Wb) - Left Hand Blood Culture - Final No growth in 5 days. 07/18/25 15:40 Stool Stool Occult Blood (MAURICIO) - Final Social Homelessness:: Sheltered Physical Exam Const alert and no apparent distress General Appearance: cooperative HEENT Mouth: dry mucous membranes Resp clear to auscultation bilaterally Cardio regular rate, regular rhythm and no gallops Cardio Narrative: No ectopy GI normal to inspection, nondistended, normoactive bowel sounds, soft to palpation and non-tender Extremity no calf tenderness Extremity Narrative: Mild ankle edema Assessment & Plan Assessment/Plan (1) Septic arthritis: QUALIFIERS: Septic arthritis location: wrist Septic arthritis organism: due to unspecified organism Laterality: right Qualified Code(s): M 00.9 - Pyogenic arthritis, unspecified (2) Pleural effusion, left: (3) Debility: (4) Ischemic cerebrovascular accident (CVA): (5) HTN (hypertension): QUALIFIERS: Hypertension type: primary hypertension Qualified Code(s): I10 - Essential (primary) hypertension (6) Depression: QUALIFIERS: Depression Type: unspecified Qualified Code(s): F32.A - Depression, unspecified PLAN: Plan 1. Continue therapy 2. Lab ordered for tomorrow 3. Start lisinopril 2.5 mg daily Charges/Coding Visit Charges Inpatient E&M: 33445 [facility] Hosp L1
[2025-08-01] MEDS: Ceftriaxone 2 GM in 0.9% Normal Saline (50mL MB+) 50 ML IV (10:37)
[2025-08-01] MEDS: 0.9% Normal Saline (250mL Bag) 250 ML 15 ML IV ×2 (13:50→23:30)
[2025-08-01 18:00] VITALS: BP 123/68; PULSE 75; RESP 16; TEMP 36.8; O2SAT 95
[2025-08-01 19:40] VITALS: PULSE 75; RESP 16; BMI 19.8
[2025-08-01] MEDS: Niacin SA 500 MG Tablet PO (19:42)
[2025-08-02] MEDS: Vancomycin HCl 500 MG in 0.9% Normal Saline (100mL Bag) 100 ML 100 MG IV ×3 (05:27→22:24)
[2025-08-02] MEDS: Dorzolamide HCL/Timolol 10 ml Bottle 1 DRP EACH EYE ×3 (05:28→22:23)
[2025-08-02] MEDS: Lidocaine 5% Patch 3 PATCH TOPICAL (05:28)
[2025-08-02 06:00] VITALS: BP 118/72; PULSE 66; RESP 15; TEMP 36.4; O2SAT 94
[2025-08-02] MEDS: Lactobacillis Acidophilus 1 CAP PO ×2 (08:04→22:24)
[2025-08-02] MEDS: Arthritis Pain Compound 60 CLICK TUBE TOPICAL ×2 (08:07→22:23)
[2025-08-02 08:12] LABS: Pro- Brain NATRIURETIC PEPTIDE 165 pg/mL (<=900)
[2025-08-02 08:14] LABS: Anion Gap 9 (5-15); BUN 7 mg/dL (4-19); BUN/Creat Ratio 16.9 RATIO (10-20); Calcium,Total 9.5 mg/dL (7.6-11.0); Carbon Dioxide 23.0 mmol/L (21.0-32.0); Chloride 105 mmol/L (98-108); Estimated Creatinine Clearance 50.82 ml/min (50-250); Glucose 117 mg/dL (70-99); Potassium 4.2 mmol/L (3.3-5.1)
[2025-08-02 08:16] LABS: Hematocrit 29.4 % (37-47); Hemoglobin 9.5 g/dL (12.0-15.0); Immature Granulocytes Count 0.030 X10^3/uL (0.0-0.0); Mean Corp Hgb Conc 32.3 g/dL (32-36); Mean Corpuscular Volume 87.5 fL (81-99); Mean Platelet Vol. 8.6 fl (6.2-12.0); NRBC Flagged by Analyzer 0 % (0-5); Platelet Count 494 K/mm3 (150-450); RBC Distribution Width CV 14.5 % (11.6-14.6); RBC Distribution Width SD 45.9 fl (35.1-43.9); Red Blood Count 3.36 M/mm3 (4.2-5.4); White Blood Count 7.5 K/mm3 (4.4-11.0)
[2025-08-02 08:39] LABS: CRP 5.57 mg/L (0.0-3.0)
[2025-08-02] MEDS: 0.9% Saline Lock 10 ML Syringe IV ×3 (10:06→22:52)
[2025-08-02] MEDS: Ceftriaxone 2 GM in 0.9% Normal Saline (50mL MB+) 50 ML IV (10:09)
[2025-08-02 15:09] VITALS: BMI 19.8
[2025-08-02 17:35] VITALS: BP 117/69; PULSE 73; RESP 16; TEMP 36.8; O2SAT 92
[2025-08-02] MEDS: Vancomycin Trough/Random Due 1 LAB MC (20:35)
[2025-08-02 21:04] LABS: Vancomycin, Trough Level 17.3 ug/mL (5.0-15.0)
[2025-08-02 21:40] VITALS: PULSE 73; RESP 16; O2SAT 94
--- NOTE | 2025-08-02 21:42 | PCM.RX.CS ---
Consult Antibiotic Management Pharmacy has been consulted to manage selected antibiotic: Vancomycin Type of Intervention Type of Consult: Follow-up Labs Labs: Sodium 137 mmol/L (133-145) 08/02/25 07:43 Potassium 4.2 mmol/L (3.3-5.1) 08/02/25 07:43 Chloride 105 mmol/L (98-108) 08/02/25 07:43 Carbon Dioxide 23.0 mmol/L (21.0-32.0) 08/02/25 07:43 Anion Gap 9 (5-15) 08/02/25 07:43 BUN 7 mg/dL (4-19) 08/02/25 07:43 Creatinine 0.40 mg/dL (0.70-1.20) L 08/02/25 07:43 Est GFR (MDRD) Non-Af 106 (>60) 08/02/25 07:43 BUN/Creatinine Ratio 16.9 RATIO (10-20) 08/02/25 07:43 Glucose 117 mg/dL (70-99) H 08/02/25 07:43 Vancomycin Trough 17.3 ug/mL (5.0-15.0) H 08/02/25 20:28 Random Vancomycin 15.3 ug/mL (0.0-15.0) H 07/26/25 18:37 Microbiology Microbiology: Microbiology 07/20/25 Unknown Fluid - Thoracentesis Fluid Gram Stain - Final 07/20/25 Unknown Fluid - Thoracentesis Fluid Body Fluid Culture - Final Culture exhibits no growth. 07/20/25 Unknown Fluid - Thoracentesis Fluid Anaerobic Culture - Final No anaerobic bacteria isolated. 07/17/25 Unknown Tissue - Incision site Gram Stain - Final 07/17/25 Unknown Tissue - Incision site Wound Culture - Final No growth aerobically. 07/17/25 Unknown Tissue - Incision site Anaerobic Culture - Final No growth in 5 days. 07/17/25 Unknown Incision/Surgical Site Gram Stain - Final 07/17/25 Unknown Incision/Surgical Site Wound Culture - Final No growth aerobically. 07/17/25 Unknown Incision/Surgical Site Anaerobic Culture - Final No growth in 5 days. 07/17/25 Unknown Incision/Surgical Site Gram Stain - Final 07/17/25 Unknown Incision/Surgical Site Wound Culture - Final No growth aerobically. 07/17/25 Unknown Incision/Surgical Site Anaerobic Culture - Final No growth in 5 days. 07/17/25 Unknown Incision/Surgical Site Gram Stain - Final 07/17/25 Unknown Incision/Surgical Site Wound Culture - Final No growth aerobically. 07/17/25 Unknown Incision/Surgical Site Anaerobic Culture - Final No growth in 5 days. 07/16/25 17:35 Blood Culture (Wb) - Left Hand Blood Culture - Final No growth in 5 days. 07/18/25 15:40 Stool Stool Occult Blood (MAURICIO) - Final Dosing Weight Weight used for dosin.2 kg Estimated Creatinine Clearance Estimated Creatinine Clearance: 51 Goal Trough Goal Trough: 15-20 mcg/mL Pharmacy Plan for Drug Dosing Pharmacy Plan for Drug Dosing: Vancomycin trough level of 17.3, drawn 6.5hrs post-dose, was within the target range of 15-20. Will continue dosing at 500mg q8h, and will draw another trough level in five days. Pharmacy Service will continue to monitor and adjust dosing as required. Follow-Up Labs Follow-Up Labs: Trough: Vancomycin Date/Time Labs Ordered Labs to be done on [date and time ordered]: 08/07/25 @2030
[2025-08-02 21:51] VITALS: BMI 19.8
[2025-08-02] MEDS: Niacin SA 500 MG Tablet PO (22:23)
[2025-08-02] MEDS: 0.9% Normal Saline (250mL Bag) 250 ML 30 ML IV (23:10)
[2025-08-03] MEDS: 0.9% Saline Lock 10 ML Syringe IV ×4 (05:21→21:15)
[2025-08-03] MEDS: Lidocaine 5% Patch 3 PATCH TOPICAL (05:21)
[2025-08-03] MEDS: Dorzolamide HCL/Timolol 10 ml Bottle 1 DRP EACH EYE ×3 (05:22→21:37)
[2025-08-03] MEDS: Vancomycin HCl 500 MG in 0.9% Normal Saline (100mL Bag) 100 ML 100 MG IV ×3 (05:30→21:16)
[2025-08-03] MEDS: 0.9% Normal Saline (250mL Bag) 250 ML 15 ML IV (05:44)
[2025-08-03 05:50] VITALS: BP 141/79; PULSE 79; RESP 15; TEMP 36.6; O2SAT 96
[2025-08-03] MEDS: Lactobacillis Acidophilus 1 CAP PO ×2 (07:49→21:38)
[2025-08-03] MEDS: Arthritis Pain Compound 60 CLICK TUBE TOPICAL ×2 (07:51→21:36)
--- NOTE | 2025-08-03 08:26 | CASEMGMT ---
Addendum entered by Marilee Degroot 08/03/25 11:24: SW phoned admissions at approx [phone] - she is off today and will notify her back up to respond in [facility] to get precert started. -As of this time, no response. SW uploaded updated clinicals to submit for precert. Original Note: Social Work SW sent another message to [facility] inquiring about precert. Marilee Degroot IRON CASTER APPLICATION DEVELOPMENT SPECIALIST
--- NOTE | 2025-08-03 08:41 | PN_ITS ---
Subjective Subjective Afebrile VSS -blood pressures are looking better with the addition of lisinopril 2.5 mg daily to the drug regimen. Maintaining appropriate oxygen saturation on RA Oral intake - FOOD varies from 75 to 100% to 25 to 49%. FLUIDS good Intake and outputs are not accurate. Patient is incontinent of urine and urine OP's are not accurate. Discussed with nursing - no problems that need addressed Reviewed the THERAPY notes Medication list reviewed. All lab done on 08/02/2025 was personally reviewed. Sodium is normal at 137 and the potassium is 4.2. The BUN is 7 with a creatinine of 0.40. C-reactive protein is 5.57, down from 47.1 on 07/26/2025. ESR is 13. BNP was normal at 165. White blood cell count is 7.5 with an unremarkable differential. Hemoglobin is 9.5 and the platelets are mildly elevated at 494,000. Denies sore mouth and painful swallowing. Denies vaginal discharge or itching. No chest pain, shortness of breath, cough, abdominal pain, dysuria or calf tenderness. Making good effort with therapy now. Objective Data Objective Data Vital Signs: Vital Signs Temp Pulse Resp BP Pulse Ox O2 Del Method O2 Flow Rate 97.9 F 79 15 141/79 H 96 Room Air 2 08/03/25 05:50 08/03/25 05:50 08/03/25 05:50 08/03/25 05:50 08/03/25 05:50 08/03/25 05:50 08/02/25 21:40 FiO2 21 07/17/25 09:07 Oxygen Flow Rate (L/min) 2 Oxygen Delivery Method Room Air Weight: 108 lb 7.479 oz Body Mass Index (BMI) 19.8 Intake & Output: Intake and Output for Last 24 Hours 08/01/25 08/02/25 08/03/25 23:59 23:59 23:59 Intake Total 1529.75 / 1529.75 1443.50 / 1553.50 724.25 / 724.25 Output Total 150 / 150 Balance 1529.75 / 1529.75 1293.50 / 1403.50 724.25 / 724.25 Lab / Micro Data 08/02/25 07:43 08/02/25 07:43 Labs: Laboratory Results - last 24 hr 08/02/25 20:28: Vancomycin Trough 17.3 H Micro: Microbiology 07/20/25 Unknown Fluid - Thoracentesis Fluid Gram Stain - Final 07/20/25 Unknown Fluid - Thoracentesis Fluid Body Fluid Culture - Final Culture exhibits no growth. 07/20/25 Unknown Fluid - Thoracentesis Fluid Anaerobic Culture - Final No anaerobic bacteria isolated. 07/17/25 Unknown Tissue - Incision site Gram Stain - Final 07/17/25 Unknown Tissue - Incision site Wound Culture - Final No growth aerobically. 07/17/25 Unknown Tissue - Incision site Anaerobic Culture - Final No growth in 5 days. 07/17/25 Unknown Incision/Surgical Site Gram Stain - Final 07/17/25 Unknown Incision/Surgical Site Wound Culture - Final No growth aerobically. 07/17/25 Unknown Incision/Surgical Site Anaerobic Culture - Final No growth in 5 days. 07/17/25 Unknown Incision/Surgical Site Gram Stain - Final 07/17/25 Unknown Incision/Surgical Site Wound Culture - Final No growth aerobically. 07/17/25 Unknown Incision/Surgical Site Anaerobic Culture - Final No growth in 5 days. 07/17/25 Unknown Incision/Surgical Site Gram Stain - Final 07/17/25 Unknown Incision/Surgical Site Wound Culture - Final No growth aerobically. 07/17/25 Unknown Incision/Surgical Site Anaerobic Culture - Final No growth in 5 days. 07/16/25 17:35 Blood Culture (Wb) - Left Hand Blood Culture - Final No growth in 5 days. 07/18/25 15:40 Stool Stool Occult Blood (MAURICIO) - Final Social Homelessness:: Sheltered Physical Exam Const alert and no apparent distress General Appearance: cooperative Resp clear to auscultation bilaterally Resp Narrative: Diminished throughout No wheezes or crackles. Effort and Inspection: Negative for tachypneic or respiratory distress Cardio regular rate, regular rhythm and no gallops Cardio Narrative: No ectopy GI normal to inspection, nondistended, normoactive bowel sounds, soft to palpation and non-tender Extremity no calf tenderness Extremity Narrative: Mild ankle edema. Some swelling of the R wrist but, no erythema and no purulent DC from the incision. Better ROM in the wrist and no pain with axial lading today. Skin Rashes: no rashes Assessment & Plan Assessment/Plan (1) Septic arthritis: QUALIFIERS: Septic arthritis location: wrist Septic arthritis organism: due to unspecified organism Laterality: right Qualified Code(s): M 00.9 - Pyogenic arthritis, unspecified (2) Pleural effusion, left: (3) Debility: (4) Ischemic cerebrovascular accident (CVA): (5) HTN (hypertension): QUALIFIERS: Hypertension type: primary hypertension Qualified Code(s): I10 - Essential (primary) hypertension (6) Depression: QUALIFIERS: Depression Type: unspecified Qualified Code(s): F32.A - Depression, unspecified (7) Iron deficiency: PLAN: Plan 1. Continue therapy 2. Continue lisinopril 2.5 mg daily 3. Needs a sleep study post Dc from rehab. Abnormal overnight trending pulse ox. 18 desaturation events lasting greater than 60 seconds. 30% of the time she was monitored her oxygen saturation was 89% or less. STOP BANG score is at least 3........she can not tell me if she snores or not and no one has told her that she stops breathing at night. She falls asleep easily during the day.......can fall asleep watching TV, reading a book, riding in the car. She naps during the day. She does not feel rested in the morning and is chronically fatigued and depressed. 4. Check iron studies. Stool was Hemoccult negative. Charges/Coding Visit Charges Inpatient E&M: 92232 Subs Hosp L1
[2025-08-03] MEDS: Ceftriaxone 2 GM in 0.9% Normal Saline (50mL MB+) 50 ML IV (10:11)
[2025-08-03 11:11] LABS: Ferritin 247 ng/mL (22-378); Iron 24 ug/dL (50-170); Iron Binding Capacity,Unsat 173 ug/dL (228-428)
[2025-08-03 11:16] LABS: Iron Binding Capacity,Total 197 ug/dL (250-450)
[2025-08-03 12:45] VITALS: BMI 20.1
[2025-08-03 13:31] VITALS: BMI 19.8
--- NOTE | 2025-08-03 14:53 | CASEMGMT ---
Social Work Insurance has reviewed case and approved continued stay with next update on 08/06. SW met with pt and informed of this and also explained that [facility] and [facility] do not currently have beds available but [facility] can accept. Pt states preferred provider is [facility] or [facility]. SW explained that SW can check with them again closer to time of discharge. SW to continue to follow for dc planning. DILAN Jama
--- NOTE | 2025-08-03 15:30 | PN.SURG_ITS ---
Subjective Subjective Doing well. No pain in the wrist or right hand. Feeling better. Objective Data Objective Data Vital Signs: Vital Signs Temp Pulse Resp BP Pulse Ox O2 Del Method O2 Flow Rate 97.9 F 79 15 141/79 H 96 Room Air 2 08/03/25 05:50 08/03/25 05:50 08/03/25 05:50 08/03/25 05:50 08/03/25 05:50 08/03/25 05:50 08/02/25 21:40 FiO2 21 07/17/25 09:07 Oxygen Flow Rate (L/min) 2 Oxygen Delivery Method Room Air Weight: 108 lb 7.479 oz Body Mass Index (BMI) 19.8 Intake & Output: Intake and Output for Last 24 Hours 08/01/25 08/02/25 08/03/25 23:59 23:59 23:59 Intake Total 1529.75 / 1529.75 1443.50 / 1553.50 1213.25 / 1213.25 Output Total 150 / 150 Balance 1529.75 / 1529.75 1293.50 / 1403.50 1213.25 / 1213.25 Lab / Micro Data 08/02/25 07:43 08/02/25 07:43 Labs: Laboratory Results - last 24 hr 08/02/25 07:43: Iron 24 L, TIBC 197 L, Iron Saturation 12.2 L, Unsaturated IBC 173 L, Ferritin 247 08/02/25 20:28: Vancomycin Trough 17.3 H Micro: Microbiology 07/20/25 Unknown Fluid - Thoracentesis Fluid Gram Stain - Final 07/20/25 Unknown Fluid - Thoracentesis Fluid Body Fluid Culture - Final Culture exhibits no growth. 07/20/25 Unknown Fluid - Thoracentesis Fluid Anaerobic Culture - Final No anaerobic bacteria isolated. 07/17/25 Unknown Tissue - Incision site Gram Stain - Final 07/17/25 Unknown Tissue - Incision site Wound Culture - Final No growth aerobically. 07/17/25 Unknown Tissue - Incision site Anaerobic Culture - Final No growth in 5 days. 07/17/25 Unknown Incision/Surgical Site Gram Stain - Final 07/17/25 Unknown Incision/Surgical Site Wound Culture - Final No growth aerobically. 07/17/25 Unknown Incision/Surgical Site Anaerobic Culture - Final No growth in 5 days. 07/17/25 Unknown Incision/Surgical Site Gram Stain - Final 07/17/25 Unknown Incision/Surgical Site Wound Culture - Final No growth aerobically. 07/17/25 Unknown Incision/Surgical Site Anaerobic Culture - Final No growth in 5 days. 07/17/25 Unknown Incision/Surgical Site Gram Stain - Final 07/17/25 Unknown Incision/Surgical Site Wound Culture - Final No growth aerobically. 07/17/25 Unknown Incision/Surgical Site Anaerobic Culture - Final No growth in 5 days. 07/16/25 17:35 Blood Culture (Wb) - Left Hand Blood Culture - Final No growth in 5 days. 07/18/25 15:40 Stool Stool Occult Blood (MAURICIO) - Final Social Homelessness:: Sheltered Physical Exam Narrative Right upper Extremity Inspection:No purulence. No swelling. No drainage or erythema over incisions. Healing well. Palpation: No pain with axial loading of the MCP joint of the right index finger and the wrist. Motor: moving the hand/wrist. Sensory: Intact to light touch on the radial and ulnar borders. Vascular: Finger tips are warm and well perfused with <2 second capillary refill. Assessment & Plan Assessment/Plan (1) Septic finger of right hand: (2) Right hand pain: (3) Septic arthritis: QUALIFIERS: Septic arthritis location: wrist Septic arthritis organism: due to unspecified organism Laterality: right Qualified Code(s): M 00.9 - Pyogenic arthritis, unspecified PLAN: Plan Resolved F/u in clinic in 1 week or I will see again in rehab
[2025-08-03 18:00] VITALS: BP 132/75; PULSE 76; RESP 18; TEMP 35.9; O2SAT 98
[2025-08-03 21:10] VITALS: BP 113/70; PULSE 72; RESP 16; TEMP 36.6; O2SAT 93
[2025-08-03] MEDS: Niacin SA 500 MG Tablet PO (21:38)
[2025-08-04 04:23] VITALS: BMI 19.8
[2025-08-04] MEDS: Vancomycin HCl 500 MG in 0.9% Normal Saline (100mL Bag) 100 ML 100 MG IV ×3 (04:57→20:32)
[2025-08-04] MEDS: 0.9% Normal Saline (250mL Bag) 250 ML 15 ML IV (04:58)
[2025-08-04] MEDS: 0.9% Saline Lock 10 ML Syringe IV ×4 (05:07→20:34)
[2025-08-04] MEDS: Dorzolamide HCL/Timolol 10 ml Bottle 1 DRP EACH EYE ×3 (05:22→20:20)
[2025-08-04] MEDS: Lidocaine 5% Patch 3 PATCH TOPICAL (05:22)
[2025-08-04 06:00] VITALS: BP 139/74; PULSE 73; RESP 16; TEMP 36.7; O2SAT 92
[2025-08-04] MEDS: Arthritis Pain Compound 60 CLICK TUBE TOPICAL ×2 (07:50→20:24)
[2025-08-04] MEDS: Lactobacillis Acidophilus 1 CAP PO ×2 (07:50→20:21)
--- NOTE | 2025-08-04 07:55 | CASEMGMT ---
Social Work SW received written explanation from insurance that pt is best suited for IPR vs SNF, and SNF precert is not anticipated to be approved. SW to follow up with pt/ on OOP cost vs Medicaid if SNF is needed. Marilee Degroot SATELLITE TV TECHNICIAN COURSE INSTRUCTOR
[2025-08-04] MEDS: Ceftriaxone 2 GM in 0.9% Normal Saline (50mL MB+) 50 ML IV (09:33)
[2025-08-04 14:45] VITALS: BMI 19.8
[2025-08-04 17:28] VITALS: BP 115/62; PULSE 66; RESP 16; TEMP 36.8; O2SAT 96
[2025-08-04 20:08] VITALS: BMI 19.8
[2025-08-04] MEDS: Niacin SA 500 MG Tablet PO (20:24)
[2025-08-04] MEDS: 0.9% Normal Saline (250mL Bag) 250 ML 30 ML IV (20:34)
[2025-08-04 20:40] VITALS: O2SAT 95
[2025-08-05] MEDS: Vancomycin HCl 500 MG in 0.9% Normal Saline (100mL Bag) 100 ML 100 MG IV ×3 (04:47→20:58)
[2025-08-05] MEDS: 0.9% Saline Lock 10 ML Syringe IV ×4 (04:47→20:57)
[2025-08-05] MEDS: 0.9% Normal Saline (250mL Bag) 250 ML 30 ML IV ×2 (04:49→21:07)
[2025-08-05] MEDS: Dorzolamide HCL/Timolol 10 ml Bottle 1 DRP EACH EYE ×3 (04:57→21:16)
[2025-08-05 05:51] VITALS: BP 136/81; PULSE 83; RESP 16; TEMP 36.7; O2SAT 96
[2025-08-05] MEDS: Lactobacillis Acidophilus 1 CAP PO ×2 (08:12→21:16)
[2025-08-05] MEDS: Arthritis Pain Compound 60 CLICK TUBE TOPICAL ×2 (08:12→21:15)
[2025-08-05] MEDS: Lidocaine 5% Patch 3 PATCH TOPICAL (08:13)
[2025-08-05 08:59] VITALS: BMI 19.8
[2025-08-05] MEDS: Ceftriaxone 2 GM in 0.9% Normal Saline (50mL MB+) 50 ML IV (09:34)
--- NOTE | 2025-08-05 12:11 | PN_ITS ---
Subjective Subjective Charley was seen on team rounds today. Her Jatin participated by phone. Afebrile VSS -the blood pressure over the past 48 hours has ranged from 113/72 141/79. The heart rate has ranged from 66-83. Maintaining appropriate oxygen saturation on RA Oral intake - FOOD food intake has decreased over the past 4 to 5 days. Weight however is stable. FLUIDS fair at best Discussed with nursing - no problems that need addressed Reviewed the THERAPY notes Medication list reviewed. Has been taking her tramadol usually once daily in the a.m. prior to therapy. Since adding a lactose restriction to her diet the bowel movements have decreased and she is having usually 1 a day now. Objective Data Objective Data Vital Signs: Vital Signs Temp Pulse Resp BP Pulse Ox O2 Del Method O2 Flow Rate 98.0 F 83 16 136/81 H 96 Nasal Cannula 2 08/05/25 05:51 08/05/25 05:51 08/05/25 05:51 08/05/25 05:51 08/05/25 05:51 08/05/25 05:51 08/05/25 06:29 FiO2 21 07/17/25 09:07 Oxygen Flow Rate (L/min) 2 Oxygen Delivery Method Nasal Cannula Weight: 110 lb 3.698 oz Body Mass Index (BMI) 19.8 Intake & Output: Intake and Output for Last 24 Hours 08/03/25 08/04/25 08/05/25 23:59 23:59 23:59 Intake Total 1683.25 / 1683.25 1632.92 / 1632.92 826 / 826 Balance 1683.25 / 1683.25 1632.92 / 1632.92 826 / 826 Lab / Micro Data 08/02/25 07:43 08/02/25 07:43 Micro: Microbiology 07/20/25 Unknown Fluid - Thoracentesis Fluid Gram Stain - Final 07/20/25 Unknown Fluid - Thoracentesis Fluid Body Fluid Culture - Final Culture exhibits no growth. 07/20/25 Unknown Fluid - Thoracentesis Fluid Anaerobic Culture - Final No anaerobic bacteria isolated. 07/17/25 Unknown Tissue - Incision site Gram Stain - Final 07/17/25 Unknown Tissue - Incision site Wound Culture - Final No growth aerobically. 07/17/25 Unknown Tissue - Incision site Anaerobic Culture - Final No growth in 5 days. 07/17/25 Unknown Incision/Surgical Site Gram Stain - Final 07/17/25 Unknown Incision/Surgical Site Wound Culture - Final No growth aerobically. 07/17/25 Unknown Incision/Surgical Site Anaerobic Culture - Final No growth in 5 days. 07/17/25 Unknown Incision/Surgical Site Gram Stain - Final 07/17/25 Unknown Incision/Surgical Site Wound Culture - Final No growth aerobically. 07/17/25 Unknown Incision/Surgical Site Anaerobic Culture - Final No growth in 5 days. 07/17/25 Unknown Incision/Surgical Site Gram Stain - Final 07/17/25 Unknown Incision/Surgical Site Wound Culture - Final No growth aerobically. 07/17/25 Unknown Incision/Surgical Site Anaerobic Culture - Final No growth in 5 days. 07/16/25 17:35 Blood Culture (Wb) - Left Hand Blood Culture - Final No growth in 5 days. 07/18/25 15:40 Stool Stool Occult Blood (MAURICIO) - Final Social Homelessness:: Sheltered Physical Exam Const alert and no apparent distress General Appearance: cooperative Resp clear to auscultation bilaterally Resp Narrative: Diminished throughout No wheezes or crackles. Effort and Inspection: Negative for tachypneic or respiratory distress Cardio regular rate, regular rhythm and no gallops Cardio Narrative: No ectopy GI normal to inspection, nondistended, normoactive bowel sounds, soft to palpation and non-tender Extremity no calf tenderness Extremity Narrative: Mild ankle edema. Some swelling of the R wrist but, no erythema and no purulent DC from the incision. Better ROM in the wrist and no pain with axial lading today. Skin Rashes: no rashes Assessment & Plan Assessment/Plan (1) Septic arthritis: QUALIFIERS: Septic arthritis location: wrist Septic arthritis organism: due to unspecified organism Laterality: right Qualified Code(s): M 00.9 - Pyogenic arthritis, unspecified (2) Pleural effusion, left: (3) Debility: (4) Ischemic cerebrovascular accident (CVA): (5) HTN (hypertension): QUALIFIERS: Hypertension type: primary hypertension Qualified Code(s): I10 - Essential (primary) hypertension (6) Depression: QUALIFIERS: Depression Type: unspecified Qualified Code(s): F32.A - Depression, unspecified (7) Iron deficiency: PLAN: Plan 1. Continue therapy 2. Check orthostatic vital signs today. If she is not orthostatic we will likely go up to 5 mg daily on the lisinopril to keep the systolic consistently under 135. 3. ROGER talked with Jatin and he is going to come in for family training tomorrow.......to see if he will be able to provide the amount of assistance she requires if she were to go home. I suspect he will not be able to provide enough assistance and she is going to need to go to SNF. ROGER will D/W jatin and Charley whether they can afford to pay for SNF if insurance does not cover or whether they will need to make a medicaid application. 4. Recheck lab on Saturday. antibiotics will conclude Saturday. Charges/Coding Visit Charges Inpatient E&M: 48658 Subs Hosp L2
[2025-08-05 12:14] VITALS: BP 108/60; BP 114/66; PULSE 66; PULSE 67
--- NOTE | 2025-08-05 13:13 | CASEMGMT ---
Social Work IDT met with patient at bedside, then participated via conference call for Team meeting. Discussed patient's progress in PT/OT/ST/SN/MD. Pt is no longer a miguel angel lift for therapy and is using a pivot disc for transfers x2 assist. Nursing is still using a miguel angel lift. Pt is incontinent and a check/change. Pt remains on IV ATB > 08/07. SW educated to [facility] insurance with NRD 08/09 and although insurance prefers pt remain on IRU, the is likely going to need SNF placement at end of stay. SW offered for and/or dtr to attend therapy training to determine abilities to care for pt at home. agreed, but he transports dtr to/from work, and she cannot assist during work hours. scheduled for therapy 08/06 at 1000. SW will follow up with after training on determination for DC disposition. SW explained to pt that [facility] has not returned any communications to this worker since last , and [facility] and [facility] have extensive waitlists. SW offered to refer to other [facility] SNFs. Pt requests referral to [place]. SW agreed. SW explained that it is highly likely that insurance will not approve precert, and inquired about ability to pay OOP. Pt denied. SW offered to return and discuss further about pt's finances to determine Medicaid eligibility to pay for SNF. Pt agreed. SW will continue to follow. - ROGER sent referral to [facility] via [facility]. EDC 08/11. Marilee KONG
--- NOTE | 2025-08-05 15:53 | CASEMGMT ---
Addendum entered by Marilee Degroot 08/05/25 16:31: Upon further review, pt resides in [facility]. SW sent inquiry for referral for services to [facility]. Original Note: Social Work SW returned to speak with pt on finances. Pt shared finances and she has a life insurance policy that SW suggested turning over to the home, but also a 401K. SW educated to CHRISTEN needing 401k liquidated, which would be used for pt's care at a SNF. Pt is not happy about having to spend down her assets. Pt inquired about [facility]. SW explained that regardless which SNF, the room and board rate is an OOP cost, and therapy would be billed to part B. Pt expressed understanding and wants to DC home, stating her and dtr can care for her. SW agreed to see how training goes with tomorrow, and now knowing the financial piece to a SNF, it may change their way of thinking for DC. Pt agreed. SW offered to [facility] for Care Coordination to determine eligibility for assistance in the home, such as CLOTH FOLDER MACHINE. Pt agreed. SW to place referral. SW will continue to follow. Marilee Degroot CHART WRITER WARP BLEACHING VAT TENDER
[2025-08-05 17:49] VITALS: BP 139/83; PULSE 78; RESP 15; TEMP 36.4; O2SAT 95
[2025-08-05 21:15] VITALS: PULSE 78; RESP 15; O2SAT 95; BMI 19.8
[2025-08-05] MEDS: Niacin SA 500 MG Tablet PO (21:16)
[2025-08-06] MEDS: Vancomycin HCl 500 MG in 0.9% Normal Saline (100mL Bag) 100 ML 100 MG IV ×3 (05:00→21:38)
[2025-08-06] MEDS: 0.9% Saline Lock 10 ML Syringe IV ×4 (05:01→21:38)
[2025-08-06] MEDS: Dorzolamide HCL/Timolol 10 ml Bottle 1 DRP EACH EYE ×3 (05:41→21:41)
[2025-08-06] MEDS: Lidocaine 5% Patch 3 PATCH TOPICAL (05:42)
[2025-08-06 05:53] VITALS: BP 137/77; PULSE 74; RESP 17; TEMP 36.3; O2SAT 94
[2025-08-06] MEDS: Lactobacillis Acidophilus 1 CAP PO ×2 (07:56→21:43)
[2025-08-06] MEDS: Arthritis Pain Compound 60 CLICK TUBE TOPICAL ×2 (07:56→21:43)
[2025-08-06 08:07] VITALS: BP 152/82
[2025-08-06] MEDS: Ceftriaxone 2 GM in 0.9% Normal Saline (50mL MB+) 50 ML IV (09:12)
--- NOTE | 2025-08-06 11:49 | NURSING ---
pt put in contact precautions for shingles.
[2025-08-06 12:43] VITALS: BMI 19.8
--- NOTE | 2025-08-06 13:23 | PN_ITS ---
Subjective Subjective Afebrile Vital signs stable Maintaining appropriate oxygen saturation on room air while awake and wearing 2 L of nasal lobe to anytime she is sleeping. Appetite is soso......has had 50-74% of her last 2 meals. Good fluid intake. Nursing alerted me that she has a new rash on her R buttocks and low back. This was not there yesterday when I examined her. Denies pain in the R buttocks. Has never had a shingles vaccine. Remainder of the ROS is negative today. Objective Data Objective Data Vital Signs: Vital Signs Temp Pulse Resp BP Pulse Ox O2 Del Method O2 Flow Rate 97.4 F L 74 17 152/82 H 94 Room Air 2 08/06/25 05:53 08/06/25 05:53 08/06/25 05:53 08/06/25 08:07 08/06/25 05:53 08/06/25 05:53 08/05/25 06:29 FiO2 21 07/17/25 09:07 Oxygen Flow Rate (L/min) 2 Oxygen Delivery Method Room Air Weight: 110 lb 3.698 oz Body Mass Index (BMI) 19.8 Intake & Output: Intake and Output for Last 24 Hours 08/04/25 08/05/25 08/06/25 23:59 23:59 23:59 Intake Total 1632.92 / 1632.92 1846 / 1846 1230 / 1230 Balance 1632.92 / 1632.92 1846 / 1846 1230 / 1230 Lab / Micro Data 08/02/25 07:43 08/02/25 07:43 Micro: Microbiology 07/20/25 Unknown Fluid - Thoracentesis Fluid Gram Stain - Final 07/20/25 Unknown Fluid - Thoracentesis Fluid Body Fluid Culture - Final Culture exhibits no growth. 07/20/25 Unknown Fluid - Thoracentesis Fluid Anaerobic Culture - Final No anaerobic bacteria isolated. 07/17/25 Unknown Tissue - Incision site Gram Stain - Final 07/17/25 Unknown Tissue - Incision site Wound Culture - Final No growth aerobically. 07/17/25 Unknown Tissue - Incision site Anaerobic Culture - Final No growth in 5 days. 07/17/25 Unknown Incision/Surgical Site Gram Stain - Final 07/17/25 Unknown Incision/Surgical Site Wound Culture - Final No growth aerobically. 07/17/25 Unknown Incision/Surgical Site Anaerobic Culture - Final No growth in 5 days. 07/17/25 Unknown Incision/Surgical Site Gram Stain - Final 07/17/25 Unknown Incision/Surgical Site Wound Culture - Final No growth aerobically. 07/17/25 Unknown Incision/Surgical Site Anaerobic Culture - Final No growth in 5 days. 07/17/25 Unknown Incision/Surgical Site Gram Stain - Final 07/17/25 Unknown Incision/Surgical Site Wound Culture - Final No growth aerobically. 07/17/25 Unknown Incision/Surgical Site Anaerobic Culture - Final No growth in 5 days. 07/16/25 17:35 Blood Culture (Wb) - Left Hand Blood Culture - Final No growth in 5 days. 07/18/25 15:40 Stool Stool Occult Blood (MAURICIO) - Final Social Homelessness:: Sheltered Physical Exam Const alert Constitutional Narrative: Negative for confusion. Does not appear to be in any acute distress. Denies pain in her right buttocks. Skin Skin Narrative: R buttocks and the R low back have a NEW (since yesterday) red rash with vesicles/many broken and scabbing involving the R buttock and the R low back. No purulent DC. No erythema around the vesicles. No swelling. No pain with palpation of the skin of the involve area. Assessment & Plan Assessment/Plan (1) Septic arthritis: QUALIFIERS: Septic arthritis location: wrist Septic arthritis organism: due to unspecified organism Laterality: right Qualified Code(s): M 00.9 - Pyogenic arthritis, unspecified (2) Pleural effusion, left: (3) Debility: (4) Ischemic cerebrovascular accident (CVA): (5) HTN (hypertension): QUALIFIERS: Hypertension type: primary hypertension Qualified Code(s): I10 - Essential (primary) hypertension (6) Depression: QUALIFIERS: Depression Type: unspecified Qualified Code(s): F32.A - Depression, unspecified (7) Iron deficiency: (8) Herpes zoster: PLAN: Plan 1. Continue therapy 2. Acyclovir 800 mg 5 times daily for 7 days. 3. Family will be coming in for family training on Saturday to see if they will be able to manage Charley's care at home. 4. Lab ordered for Saturday. Charges/Coding Visit Charges Inpatient E&M: 03794 [facility] Hosp L1
[2025-08-06] MEDS: 0.9% Normal Saline (250mL Bag) 250 ML 15 ML IV (13:42)
--- NOTE | 2025-08-06 15:10 | CASEMGMT ---
Social Work SW received call from [facility]. They can assist with transportation and MOW, and requested to be notified when there is a DC date. - SW phoned to inquire about outcome of therapy training. was limited with answers and SW continued exploring to get more specific answers. Ultimately, stated he wants pt to improve more but since the insurance will not cover a SNF, he states he can care for pt at home. stated he will have the assistance of his dtr outside of her working hours, as well. SW offered for to continue participating in therapy sessions to improve on comfort and reminded of being present for team meetings. Explained insurance approved with [employer] 08/11, as pt is in isolation for shingles this date. expressed understanding. SW will continue to follow for DC planning. - SW notified Alejandra Gutiérrez and Nito to close referral. Marilee Degroot PHOTOGRAPHIC SPECIALIST [employer]
[2025-08-06 15:48] VITALS: BMI 22.0
[2025-08-06 18:00] VITALS: BP 115/57; PULSE 71; RESP 16; TEMP 36.6
[2025-08-06 21:30] VITALS: O2SAT 95
[2025-08-06] MEDS: Niacin SA 500 MG Tablet PO (21:43)
[2025-08-07 01:54] VITALS: BMI 22.0
[2025-08-07] MEDS: Vancomycin HCl 500 MG in 0.9% Normal Saline (100mL Bag) 100 ML 100 MG IV ×3 (04:48→21:19)
[2025-08-07] MEDS: 0.9% Saline Lock 10 ML Syringe IV ×6 (04:49→22:33)
[2025-08-07] MEDS: Dorzolamide HCL/Timolol 10 ml Bottle 1 DRP EACH EYE ×3 (05:08→21:15)
[2025-08-07] MEDS: Lidocaine 5% Patch 3 PATCH TOPICAL (05:08)
[2025-08-07 05:57] VITALS: BP 152/75; PULSE 77; RESP 17; TEMP 36.6; O2SAT 97
[2025-08-07] MEDS: Lactobacillis Acidophilus 1 CAP PO ×2 (07:33→21:15)
[2025-08-07 07:34] VITALS: BP 140/90; PULSE 80
[2025-08-07] MEDS: Ceftriaxone 2 GM in 0.9% Normal Saline (50mL MB+) 50 ML IV (11:00)
[2025-08-07] MEDS: Arthritis Pain Compound 60 CLICK TUBE TOPICAL ×2 (11:18→21:15)
[2025-08-07 12:30] VITALS: BMI 22.0
[2025-08-07 18:00] VITALS: BP 132/66; PULSE 70; RESP 16; TEMP 36.6; O2SAT 92
[2025-08-07] MEDS: Niacin SA 500 MG Tablet PO (21:17)
[2025-08-07 21:30] VITALS: BMI 22.0
[2025-08-08] VITALS: PULSE 71; RESP 18; O2SAT 97
[2025-08-08] MEDS: Dorzolamide HCL/Timolol 10 ml Bottle 1 DRP EACH EYE ×3 (05:00→21:48)
[2025-08-08] MEDS: Lidocaine 5% Patch 3 PATCH TOPICAL (05:01)
[2025-08-08 05:24] VITALS: BP 151/83; PULSE 78; RESP 16; TEMP 37; O2SAT 94
[2025-08-08] MEDS: Lactobacillis Acidophilus 1 CAP PO ×2 (08:21→21:48)
[2025-08-08] MEDS: Arthritis Pain Compound 60 CLICK TUBE TOPICAL ×2 (08:23→21:48)
[2025-08-08] MEDS: 0.9% Saline Lock 10 ML Syringe IV ×2 (13:24→21:51)
[2025-08-08 14:18] VITALS: BMI 22.0
[2025-08-08 18:00] VITALS: BP 140/70; PULSE 70; RESP 17; TEMP 36.7; O2SAT 95
[2025-08-08] MEDS: Niacin SA 500 MG Tablet PO (21:49)
[2025-08-08 22:00] VITALS: RESP 15; O2SAT 93
[2025-08-08 22:04] VITALS: BMI 22.0
[2025-08-09] MEDS: Lidocaine 5% Patch 3 PATCH TOPICAL (05:27)
[2025-08-09] MEDS: Dorzolamide HCL/Timolol 10 ml Bottle 1 DRP EACH EYE ×3 (05:32→21:59)
[2025-08-09 05:48] VITALS: BP 149/82; PULSE 80; RESP 16; TEMP 36.7; O2SAT 93
[2025-08-09 08:15] VITALS: O2SAT 97
[2025-08-09] MEDS: Lactobacillis Acidophilus 1 CAP PO ×2 (08:38→22:00)
[2025-08-09] MEDS: Arthritis Pain Compound 60 CLICK TUBE TOPICAL ×2 (08:40→21:58)
[2025-08-09 08:49] LABS: Hematocrit 34.1 % (37-47); Hemoglobin 11.2 g/dL (12.0-15.0); Immature Granulocytes Count 0.030 X10^3/uL (0.0-0.0); Mean Corp Hgb Conc 32.8 g/dL (32-36); Mean Corpuscular Volume 86.1 fL (81-99); Mean Platelet Vol. 9.1 fl (6.2-12.0); NRBC Flagged by Analyzer 0 % (0-5); Platelet Count 410 K/mm3 (150-450); RBC Distribution Width CV 15.0 % (11.6-14.6); RBC Distribution Width SD 46.6 fl (35.1-43.9); Red Blood Count 3.96 M/mm3 (4.2-5.4); White Blood Count 8.7 K/mm3 (4.4-11.0)
--- NOTE | 2025-08-09 09:21 | PN_ITS ---
Subjective Subjective Has completed the full course of treatment with vancomycin and Rocephin for septic right wrist. Afebrile VSS -blood pressure over the weekend ranged from 132/66 to 140/90. Heart rate is within normal limits. Blood pressure tends to be highest in the AM. She was started on lisinopril 2.5 mg daily approximately 10 days ago. Maintaining appropriate oxygen saturation on RA Oral intake - FOOD fair FLUIDS fair Discussed with nursing - no problems that need addressed Reviewed the THERAPY notes Medication list reviewed. Taking tramadol no more than once daily and usually takes it in the a.m. prior to therapy. All labs from today was personally reviewed. The white blood cell count is 8.7 with an unremarkable differential. Hemoglobin today is 11.2, up from 9.5 on 08/02/2025. Platelets are down to 410,000 which is normal. Sodium is stable at 137 and the potassium is stable at 4. The BUN is 6 with a creatinine of 0.47 which is stable. Denies SOLER, lightheadedness, CP, SOB, mouth soreness, vaginal itching or DC, calf pain and dysuria. Asked me when she can go home. has been in twice for training. Independent with WC mobility......70' today. she remains non-ambulatory. Still requiring max assist X 1 for sit to stand. she has weak knees with standing and does not reach a full stand. Requiring moderate assistance with grooming and max assist with feeding/upper body dressing. Total assist for lower body dressing toileting, tub/shower transfer and toilet transfer. Objective Data Objective Data Vital Signs: Vital Signs Temp Pulse Resp BP Pulse Ox O2 Del Method O2 Flow Rate 98.0 F 80 16 149/82 H 97 Room Air 2 08/09/25 05:48 08/09/25 05:48 08/09/25 05:48 08/09/25 05:48 08/09/25 08:15 08/09/25 08:15 08/08/25 00:00 FiO2 21 07/17/25 09:07 Oxygen Flow Rate (L/min) 2 Oxygen Delivery Method Room Air Weight: 119 lb 11.376 oz Body Mass Index (BMI) 22.0 Intake & Output: Intake and Output for Last 24 Hours 08/07/25 08/08/25 08/09/25 23:59 23:59 23:59 Intake Total 1175 / 1275 1180 / 1180 Output Total 300 / 300 300 / 300 200 / 200 Balance 875 / 975 880 / 880 -200 / -200 Lab / Micro Data 08/09/25 08:10 08/09/25 08:10 Micro: Microbiology 07/20/25 Unknown Fluid - Thoracentesis Fluid Gram Stain - Final 07/20/25 Unknown Fluid - Thoracentesis Fluid Body Fluid Culture - Final Culture exhibits no growth. 07/20/25 Unknown Fluid - Thoracentesis Fluid Anaerobic Culture - Final No anaerobic bacteria isolated. 07/17/25 Unknown Tissue - Incision site Gram Stain - Final 07/17/25 Unknown Tissue - Incision site Wound Culture - Final No growth aerobically. 07/17/25 Unknown Tissue - Incision site Anaerobic Culture - Final No growth in 5 days. 07/17/25 Unknown Incision/Surgical Site Gram Stain - Final 07/17/25 Unknown Incision/Surgical Site Wound Culture - Final No growth aerobically. 07/17/25 Unknown Incision/Surgical Site Anaerobic Culture - Final No growth in 5 days. 07/17/25 Unknown Incision/Surgical Site Gram Stain - Final 07/17/25 Unknown Incision/Surgical Site Wound Culture - Final No growth aerobically. 07/17/25 Unknown Incision/Surgical Site Anaerobic Culture - Final No growth in 5 days. 07/17/25 Unknown Incision/Surgical Site Gram Stain - Final 07/17/25 Unknown Incision/Surgical Site Wound Culture - Final No growth aerobically. 07/17/25 Unknown Incision/Surgical Site Anaerobic Culture - Final No growth in 5 days. 07/16/25 17:35 Blood Culture (Wb) - Left Hand Blood Culture - Final No growth in 5 days. 07/18/25 15:40 Stool Stool Occult Blood (MAURICIO) - Final Social Homelessness:: Sheltered Physical Exam Const alert and no apparent distress General Appearance: cooperative Resp clear to auscultation bilaterally Resp Narrative: Diminished throughout No wheezes or crackles. Effort and Inspection: Negative for tachypneic or respiratory distress Cardio regular rate, regular rhythm and no gallops Cardio Narrative: No ectopy GI normal to inspection, nondistended, normoactive bowel sounds, soft to palpation and non-tender Extremity no calf tenderness Extremity Narrative: Mild ankle edema. Some swelling of the R wrist but, no erythema and no purulent DC from the incision. Better ROM in the wrist and no pain with axial lading today. Skin Rashes: no rashes Wound Narrative: Shingles rash on the R Buttock and low back is drying up. No weeping vesicles today. No evidence of secondary bacterial infection. She denies pain in the distribution of the rash. there are now a few erythematous spots on the L buttock. They are dry. Psych cooperative and affect normal Appearance: appropriate Attitude: No agitated Mood & Affect: Negative for depressed or anxious Assessment & Plan Assessment/Plan (1) Septic arthritis: QUALIFIERS: Septic arthritis location: wrist Septic arthritis organism: due to unspecified organism Laterality: right Qualified Code(s): M 00.9 - Pyogenic arthritis, unspecified (2) Pleural effusion, left: (3) Debility: (4) Ischemic cerebrovascular accident (CVA): (5) HTN (hypertension): QUALIFIERS: Hypertension type: primary hypertension Qualified Code(s): I10 - Essential (primary) hypertension (6) Depression: QUALIFIERS: Depression Type: unspecified Qualified Code(s): F32.A - Depression, unspecified (7) Iron deficiency: (8) Herpes zoster: PLAN: Plan 1. Continue therapy 2. Increase lisinopril to 5 mg daily 3. finish out 7 days of Acyclovir 4. Not making significant progress at this point. still total assist for most ADL's and she is non-ambulatory. Still incontinent of urine and stool. thinks he will be able to manage her at home.......will have a second person to assist in the evening and at night......dtr works during the day. D/W SW. Charges/Coding Visit Charges Inpatient E&M: 32649 [facility] Hosp L1
[2025-08-09 09:59] LABS: Anion Gap 14 (5-15); BUN 6 mg/dL (4-19); BUN/Creat Ratio 12.7 RATIO (10-20); Calcium,Total 10.1 mg/dL (7.6-11.0); Carbon Dioxide 19.3 mmol/L (21.0-32.0); Chloride 104 mmol/L (98-108); Estimated Creatinine Clearance 51.75 ml/min (50-250); Glucose 152 mg/dL (70-99); Potassium 4.0 mmol/L (3.3-5.1)
[2025-08-09 13:19] VITALS: BMI 21.8
[2025-08-09] MEDS: 0.9% Saline Lock 10 ML Syringe IV ×2 (13:58→22:05)
--- NOTE | 2025-08-09 14:15 | CASEMGMT ---
Social Work Insurance approved through 08/11. IDT collaborated and continued stay is not going to impact significant improvement or DC plan. IDT setting DC date for 08/11. - SW phoned to notify of above. Confirmed plan is home. SW offered for to attend therapy training tomorrow; denied. SW reviewed referrals/needs at DC - skilled HHC PT/OT/ST/SN/SOLER/SW. SW to provide pt with list of choices for pt/ to select preference; palliative care - SW to provide list of choices; DME: hospital bed, [facility], w/c, BSC. confirmed he received the additional DME items from OT to purchase, such as pivot disc and additional AE. SW inquired about transport home. asked if he can take her by car. SW inquired if car transfer training has occurred. denied. SW encouraged to complete tomorrow with therapy to ensure pt is safe/capable to complete. agreed and scheduled for 1000. denied additional concerns or questions. - SW spoke with pt at bedside. Informed of above. Pt agreed to DC date and needs. SW provided list of skilled HHC agencies within geographical area, [place] with insurance, that include quality and resource data via [employer] guide. SW provided list of choices for palliative care agencies. Requested call from pt/ tomorrow with selections to place referrals. Pt agreed. Pt denied other questions or concerns. - SW sent referral to [employer] via [employer] for DME needs. Plan: DC home with and dtr 08/11, HHC PT/OT/ST/SN/SOLER/[facility], w/c, hospital bed, BSC, [facility]
[2025-08-09 17:29] VITALS: BP 140/44; PULSE 84; RESP 16; TEMP 36.6; O2SAT 96
[2025-08-09 21:23] VITALS: BMI 21.8
[2025-08-09 21:30] VITALS: PULSE 84; RESP 16; O2SAT 93
[2025-08-09] MEDS: Niacin SA 500 MG Tablet PO (22:00)
[2025-08-10 00:30] VITALS: RESP 15; O2SAT 95
[2025-08-10] MEDS: Lidocaine 5% Patch 3 PATCH TOPICAL (05:01)
[2025-08-10] MEDS: Dorzolamide HCL/Timolol 10 ml Bottle 1 DRP EACH EYE ×3 (05:01→21:46)
[2025-08-10 06:00] VITALS: BP 132/85; PULSE 90; RESP 16; TEMP 36.5; O2SAT 95
[2025-08-10 07:15] VITALS: O2SAT 95
[2025-08-10] MEDS: Lactobacillis Acidophilus 1 CAP PO ×2 (08:08→21:46)
[2025-08-10] MEDS: Arthritis Pain Compound 60 CLICK TUBE TOPICAL ×2 (08:09→21:46)
--- NOTE | 2025-08-10 09:40 | PCM.PN.SRG ---
Subjective Subjective Patient seen this morning with Dr. Smith at bedside. She is pending discharge tomorrow. She has been working with therapies. She hand and wrist feels better. She is able to move her wrist and fingers somewhat denies pain, swelling, drainage, fever, chills. Objective Data Objective Data Vital Signs: Vital Signs Temp Pulse Resp BP Pulse Ox O2 Del Method O2 Flow Rate 97.7 F L 90 16 132/85 H 95 Room Air 2 08/10/25 06:00 08/10/25 06:00 08/10/25 06:00 08/10/25 06:00 08/10/25 07:15 08/10/25 07:15 08/10/25 06:00 FiO2 21 07/17/25 09:07 Oxygen Flow Rate (L/min) 2 Oxygen Delivery Method Room Air Weight: 118 lb 8 oz Body Mass Index (BMI) 21.8 Intake & Output: Intake and Output for Last 24 Hours 08/08/25 08/09/25 08/10/25 23:59 23:59 23:59 Intake Total 1180 / 1180 570 / 570 390 / 390 Output Total 300 / 300 400 / 400 Balance 880 / 880 170 / 170 390 / 390 Lab / Micro Data Attestation: I reviewed the patient's lab results. 08/09/25 08:10 08/09/25 08:10 Labs: Laboratory Results - last 24 hr 08/09/25 08:10: Sodium 137, Potassium 4.0, Chloride 104, Carbon Dioxide 19.3 L, Anion Gap 14, BUN 6, Creatinine 0.47 L, Estim Creat Clear Calc 51.75, Est GFR (MDRD) Non-Af 103, BUN/Creatinine Ratio 12.7, Glucose 152 H, Calcium 10.1 Micro: Microbiology 07/20/25 Unknown Fluid - Thoracentesis Fluid Gram Stain - Final 07/20/25 Unknown Fluid - Thoracentesis Fluid Body Fluid Culture - Final Culture exhibits no growth. 07/20/25 Unknown Fluid - Thoracentesis Fluid Anaerobic Culture - Final No anaerobic bacteria isolated. 07/17/25 Unknown Tissue - Incision site Gram Stain - Final 07/17/25 Unknown Tissue - Incision site Wound Culture - Final No growth aerobically. 07/17/25 Unknown Tissue - Incision site Anaerobic Culture - Final No growth in 5 days. 07/17/25 Unknown Incision/Surgical Site Gram Stain - Final 07/17/25 Unknown Incision/Surgical Site Wound Culture - Final No growth aerobically. 07/17/25 Unknown Incision/Surgical Site Anaerobic Culture - Final No growth in 5 days. 07/17/25 Unknown Incision/Surgical Site Gram Stain - Final 07/17/25 Unknown Incision/Surgical Site Wound Culture - Final No growth aerobically. 07/17/25 Unknown Incision/Surgical Site Anaerobic Culture - Final No growth in 5 days. 07/17/25 Unknown Incision/Surgical Site Gram Stain - Final 07/17/25 Unknown Incision/Surgical Site Wound Culture - Final No growth aerobically. 07/17/25 Unknown Incision/Surgical Site Anaerobic Culture - Final No growth in 5 days. 07/16/25 17:35 Blood Culture (Wb) - Left Hand Blood Culture - Final No growth in 5 days. 07/18/25 15:40 Stool Stool Occult Blood (MUARICIO) - Final Social Homelessness:: Sheltered Physical Exam Narrative Right upper extremity: Incision is healing well without purulence, drainage, or erythema or edema. Nontender to palpation. No pain with axial loading of right index finger MCP and wrist. Sensation to wrist and fingers are intact to light touch. She is able to move her wrist in all directions and flickers of right index finger extension Fingertips are warm and well-perfused with less than 2-second capillary refill Const oriented x3 and no apparent distress Assessment & Plan Assessment/Plan (1) Septic finger of right hand: PLAN: She is healing well. We will plan on seeing her in clinic in 3 weeks with repeat hand x-ray. Continue hand therapies.
--- NOTE | 2025-08-10 11:34 | PCM.DC ---
Discharge Instructions DC O2, CPAP, BIPAP needs Home O2 Discharge instructions: Yes Type of respiratory needs?: Oxygen Oxygen frequency: With Sleeping Oxygen liters per minute when sleepin LPM Dressing / Incision Discharge Activity: May Not Drive, May Shower and - (She is non-ambulatory and uses a WC. ) Weight Bearing Status: Weight bearing as tolerated Keep extremity elevated above heart level: Legs Dressing / Incision Call your doctor if you observe: Fever of 101 or Higher, Inability to urinate, Inability to have a bowel movement, Shortness of breath, Dizziness, Fainting spells, Chest pain, Increased palpitations (irregular heartbeat), Calf discomfort, Uncontrolled pain and - (STROKE symptoms: facial droop, slurred speech, inability to get words out, weakness on 1 side of the body and not the other, numbness on 1 side of the body and not the other, inability to maintain your balance sitting or standing, vertigo. ) Cleanse incision/area with: Soap & Water Follow Up Care When: you have follow up appts scheduled for you and they are listed later in this document. Test Results: Test results from this visit will be discussed in further detail at your follow-up appointment, if applicable. Pending Tests Upon Discharge: none Discharge Plan Admission Admit Date/Time: 07/13/25 15:49 Primary Reason for Your Visit: stroke Attending Provider: Hailey Cordova Primary Care Provider: Meet Matos Consulting Providers: Thad Smith; Thad Martinez; Juanita Murphy Instructions Patient Instructions: RAD RN Thoracentesis Dc Additional Instructions / Restrictions: 1. You will need to follow up with Dr. Smith for the R wrist. An appt has been made for you. It is listed later in this document. 2. You will also need to follow up with your PCP, Dr. Meet Matos, and this appt has been made for you as well. 3. You should follow up with a neurologist for the stroke. The neurologist in [place] is Dr. El Spaulding if you would like to follow up in [place]. If you would like to see someone closer to where you live this is an option also. 4. I suspect you have sleep apnea. We checked your oxygen in the blood and almost 30% of the time you were monitored the oxygen was too low. We are sending you home on Oxygen which you will wear anytime you are sleeping. I think you should have a sleep study and your PCP can arrange for this. 5. A referral to palliative care has been made for you by the [facility]. They will help with medication management. 6. Since I am not your PCP I am only able to prescribe 1 weeks worth of pain medication (Tramadol) for you at discharge from rehab. If you need more than this you should talk to Dr. Matos. 7. Family declined hospital bed, Ramón lift and other DME ordered. They did obtain a pivot disc. Discharge Orders/Prescriptions Prescriptions: New acetaminophen 500 mg Tablet 1,000 mg PO Q8 PRN (Reason: pain or fever) Qty: 180 0RF acyclovir 800 mg Tablet 800 mg PO 5X/DAY Qty: 15 0RF Rx Instructions: 5 times a day until gone ascorbic acid (vitamin C) 500 mg Tablet 1,000 mg PO LUNCH Qty: 30 0RF ferrous sulfate [FeroSul] 325 mg (65 mg iron) Tablet 325 mg PO DAILY@1200 Qty: 30 0RF Rx Instructions: take this with the Vitamin C at lunchtime daily duloxetine 30 mg Capsule,Delayed Release(Dr/Ec) 30 mg PO DAILY Qty: 30 0RF icosapent ethyl 1 gram Capsule 2 g PO BIDCM Qty: 120 0RF Rx Instructions: 1 caps twice daily niacin 500 mg Tablet Extended Release 24 Hr 500 mg PO QHS Qty: 30 0RF tramadol 50 mg Tablet 25 mg PO Q8H PRN PRN (Reason: pain 5-10) 7 Days Qty: 20 0RF pantoprazole 40 mg Tablet,Delayed Release (Dr/Ec) 40 mg PO DAILY Qty: 30 0RF lidocaine 5 % Adhesive Patch,Medicated 3 patch topical DAILY@0600 Qty: 90 0RF Protocol: *Topical Application Instructions APPLICATION INSTRUCTIONS: apply a patch to both knees and to the L shoulder. Rx Instructions: Apply to both knees and the L shoulder in the AM and remove at bedtime lisinopril 5 mg Tablet 5 mg PO DAILY Qty: 30 0RF Continued aspirin 81 mg tablet 81 mg PO DAILY plpunno-zwlneisoq-liya [id number] mg tablet 1 tab PO DAILY Centrum Adult 50 Plus 80 mcg tablet,chewable 1 tab PO DAILY dorzolamide-timolol [Cosopt] 22.3-6.8 mg/mL drops 1 drp EACH EYE Q8H atorvastatin [Lipitor] 80 mg tablet 80 mg PO QHS Qty: 30 0RF Discontinued clopidogrel [Plavix] 75 mg tablet 75 mg PO DAILY mirtazapine [Remeron] 15 mg tablet 7.5 mg PO QHS Referrals / Follow Up: Meet Matos MD [Primary Care Provider] - 08/24/25 2:40 pm El Spaulding MD [Non-Staff -Ordering Privileges] - 08/17/25 9:30 am Thad Smith MD [Med Staff - Active Staff] - 09/03/25 3:00 pm () Disposition Disposition (needs filled in before D/C Order can be placed): Home Health Service
[2025-08-10 12:27] VITALS: BMI 21.8
[2025-08-10] MEDS: 0.9% Saline Lock 10 ML Syringe IV (13:19)
--- NOTE | 2025-08-10 14:20 | CASEMGMT ---
Social Work submitted [facility] choices via [employer]. [facility] is first choice, [id number] is second and [facility] is third. SW sent referrals. - [facility] phoned to follow up on car tx training and transport home for pt. stated the tx went well and he can transport pt home. SW confirmed. SW noted [facility] has not given outcome and this workers calls have gone unanswered, [id number] is not in service area, but [facility] can accept. is agreeable to [facility]. SW educated HH agency will contact the for SOC date date, but typically 2-3 days after DC, pending PCP signing orders. SW inquired about palliative agency. chose [facility]. SW to make referral and palliative will contact for first visit. expressed understanding. - SW faxed referral to [facility] for palliative care. SW confirmed [facility] as AOC. Plan: DC home with 08/11, [facility] PT/OT/ST/SN/SOELR/[facility], [facility] Palliative Care Marilee Degroot GLOBAL MOBILITY SPECIALIST COMMERCIAL BAKING TEACHER
[2025-08-10 17:02] LABS: AST(SGOT) 18 U/L (<=31); Alanine Aminotransfer ALT/SGPT 26 U/L (<=34); Albumin, Serum 3.4 g/dL (3.4-4.8); Alkaline Phosphatase 120 U/L (35-104); Bilirubin, Direct 0.11 mg/dL (0.00-0.30); CPK Total, Creatine Kinase 32 U/L (24-195); Cholesterol 122 mg/dL (<=200); Globulin 2.8 g/dL (2.2-4.2); Low Density Lipoprotein Calc. 57 mg/dL; Triglycerides 122 mg/dL; Very Low Density Lipoprotein 24 mg/dL (5-40); cholesterol:hdl ratio screen 3.03
[2025-08-10 18:00] VITALS: BP 104/62; PULSE 79; RESP 17; TEMP 36.9; O2SAT 94
[2025-08-10] MEDS: Niacin SA 500 MG Tablet PO (21:46)
[2025-08-10 22:00] VITALS: PULSE 79; RESP 17; O2SAT 94; BMI 21.8
[2025-08-11 06:00] VITALS: BP 135/85; PULSE 89; RESP 16; TEMP 36.9; O2SAT 94
[2025-08-11] MEDS: Dorzolamide HCL/Timolol 10 ml Bottle 1 DRP EACH EYE (06:30)
[2025-08-11] MEDS: Lidocaine 5% Patch 3 PATCH TOPICAL (06:31)
[2025-08-11] MEDS: Arthritis Pain Compound 60 CLICK TUBE TOPICAL (08:13)
[2025-08-11 08:15] VITALS: O2SAT 95
[2025-08-11] MEDS: Lactobacillis Acidophilus 1 CAP PO (08:15)
[2025-08-11 12:46] VITALS: BMI 21.8
--- NOTE | 2025-08-11 12:55 | EX.DISCHREH ---
Providers Date of Admission: 07/13/25 Date of Discharge: 08/11/25 Primary Care Physician: Dr. Meet Matos MD Consultations 07/16/25 17:07 Consult: General Surgery Routine Consulting Provider: Thad Smith Reason for Consult: Septic Arthritis Rt Wrist EMERGENT Consult: Yes MD Notified: Yes Date Notified: 07/16/25 Time Notified: 17:07 Method of Notification: Verbal 07/19/25 09:43 Consult: Infectious Disease Routine Consulting Provider: Thad Martinez Reason for Consult: septic R wrist and L base infiltrate with effusion EMERGENT Consult: No MD Notified: Yes Date Notified: 07/19/25 Time Notified: 09:45 Method of Notification: Text 08/10/25 12:36 Consult: Inpatient Palliative Care Routine Consulting Provider: Juanita Murphy Reason for Consult: overwhelming anxiety and depression post stroke EMERGENT Consult: No MD Notified: Yes Date Notified: 08/10/25 Time Notified: 12:36 Method of Notification: Text Reason For Visit: STROKE Diagnosis Discharge Diagnosis (1) Debility: Status: Acute Code(s): R53.81 - Other malaise (2) Ischemic cerebrovascular accident (CVA): Status: Acute Code(s): I63.9 - Cerebral infarction, unspecified (3) Hemiparesis of right dominant side due to cerebral infarction: Status: Acute (4) Dysarthria due to acute cerebrovascular accident (CVA): Status: Acute Code(s): I63.9 - Cerebral infarction, unspecified; R47.1 - Dysarthria and anarthria (5) Pleural effusion, left: Status: Resolved Code(s): J90 - Pleural effusion, not elsewhere classified (6) Parapneumonic effusion: Status: Resolved Code(s): J18.9 - Pneumonia, unspecified organism; J91.8 - Pleural effusion in other conditions classified elsewhere (7) Hospital acquired PNA: Status: Resolved Code(s): J18.9 - Pneumonia, unspecified organism; Y95 - Nosocomial condition (8) Septic arthritis: Status: Resolved Code(s): M00.9 - Pyogenic arthritis, unspecified Qualifiers: Septic arthritis location: wrist Septic arthritis organism: due to unspecified organism Laterality: right Qualified Code(s): M00.9 - Pyogenic arthritis, unspecified Plan: R wrist. Had I&D and washout by Dr. smith and received appropriate course of antibiotics supervised by Dr. Martinez. No + cultures. she is going to follow up with Dr. smith as an OP in the wound care center. (9) Septic finger of right hand: Status: Resolved Code(s): L03.011 - Cellulitis of right finger Plan: Had Washout of the index finger MCP joint. (10) Depression: Status: Chronic Code(s): F32.A - Depression, unspecified Qualifiers: Depression Type: unspecified Qualified Code(s): F32.A - Depression, unspecified Plan: Will continue duloxetine 30 mg daily at discharge. This has not only improved her affect but is helping with chronic pain complaints of multiple joints. (11) HLD (hyperlipidemia): Status: Chronic Code(s): E78.5 - Hyperlipidemia, unspecified Qualifiers: Hyperlipidemia type: mixed hyperlipidemia Qualified Code(s): E78.2 - Mixed hyperlipidemia Plan: She has increased triglycerides, increased LDL and decreased HDL. At the time of discharge from rehab she is on atorvastatin 80 mg daily, Vascepa 2 g twice daily and Niaspan SA 500 mg nightly. Lipid panel 1 day prior to discharge from rehab shows triglycerides of 122, total cholesterol 122, LDL 57 and HDL 40 (up from 21 prior to Niaspan). CPK and liver panel were both normal. (12) Low HDL (under 40): Status: Chronic Code(s): E78.6 - Lipoprotein deficiency (13) Hypertriglyceridemia: Status: Chronic Code(s): E78.1 - Pure hyperglyceridemia (14) HTN (hypertension): Status: Chronic Code(s): I10 - Essential (primary) hypertension Qualifiers: Hypertension type: primary hypertension Qualified Code(s): I10 - Essential (primary) hypertension Plan: Continue lisinopril 5 mg daily at discharge. Goal blood pressure is less than 135/80. (15) Glaucoma: Status: Chronic Code(s): H40.9 - Unspecified glaucoma Qualifiers: Glaucoma type: unspecified Laterality: bilateral Qualified Code(s): H40.9 - Unspecified glaucoma Plan: Continue previously prescribed eyedrops and follow-up with ophthalmology. (16) Left shoulder pain: Status: Chronic Code(s): M25.512 - Pain in left shoulder Qualifiers: Chronicity: chronic Qualified Code(s): M25.512 - Pain in left shoulder; G89.29 - Other chronic pain Plan: She has known osteoarthritis of the left shoulder and left shoulder rotator cuff tendinopathy. Has not pursued intervention in the past and this has been going on for years. Has not been c/o pain recently. (17) Iron deficiency: Status: Chronic Code(s): E61.1 - Iron deficiency Plan: She was treated with intravenous iron sucrose and the hemoglobin is back up to 11.2 at discharge from rehab. She will be discharged on ferrous sulfate plus vitamin C daily with lunch. Stool for occult blood was negative. (18) Herpes zoster: Status: Acute Code(s): B02.9 - Zoster without complications Qualifiers: Herpes zoster complications: without complications Qualified Code(s): B02.9 - Zoster without complications Plan: Treated with acyclovir 800 mg 5 times daily for 7 days. Vesicles are all dried up at discharge from rehab and there is no evidence of secondary bacterial infection. (19) Osteoarthritis: Status: Chronic Code(s): M19.90 - Unspecified osteoarthritis, unspecified site Qualifiers: Osteoarthritis location: multiple joints Osteoarthritis type: primary Qualified Code(s): M15.0 - Primary generalized (osteo)arthritis Plan: Multiple joints. (20) Poor dental hygiene: Status: Chronic Code(s): Z91.89 - Other specified personal risk factors, not elsewhere classified Plan: Recommended she follow-up with a dentist postdischarge from rehab. (21) Venous insufficiency: Status: Chronic Code(s): I87.2 - Venous insufficiency (chronic) (peripheral) Plan 1. DC home with hosp[facility] and [facility]. 2. Refused hospital bed, [facility]. They purchased a pivot disc. 3. Follow up with Dr. Matos, Dr. Smith and neurology post DC from rehab. Medications at Discharge Home Medications aspirin 81 mg tablet 81 mg PO DAILY heart health 07/13/25 shlawgq-[id number]-[id number] 333 mg-133 mg-5 mg tablet 1 tab PO DAILY supplement 07/13/25 dorzolamide 22.3 mg-timolol 6.8 mg/mL eye drops (Cosopt) 1 drp EACH EYE Q8H eyes 07/13/25 multivitamin with minerals-folic acid 80 mcg chewable tablet (Centrum Adult 50 Plus) 1 tab PO DAILY supplement 07/13/25 acetaminophen 500 mg tablet 1,000 mg (2 x 500 mg) PO Q8 PRN pain or fever #180 tabs 08/10/25 acyclovir 800 mg tablet 800 mg PO 5X/DAY #15 tabs 08/10/25 ascorbic acid (vitamin C) 500 mg tablet 1,000 mg (2 x 500 mg) PO LUNCH #30 tabs 08/10/25 atorvastatin 80 mg tablet (Lipitor) 80 mg PO QHS cholesterol #30 tabs 08/10/25 duloxetine 30 mg capsule,delayed release 30 mg PO DAILY #30 caps 08/10/25 ferrous sulfate 325 mg (65 mg iron) tablet (FeroSul) 325 mg PO DAILY@1200 #30 tabs 08/10/25 icosapent ethyl 1 gram capsule 2 g (2 x 1 gram) PO BIDCM #120 caps 08/10/25 lidocaine 5 % topical patch 3 patch topical DAILY@0600 #90 ea 08/10/25 lisinopril 5 mg tablet 5 mg PO DAILY #30 tabs 08/10/25 niacin 500 mg tablet,extended release 24 hr 500 mg PO QHS #30 tabs 08/10/25 pantoprazole 40 mg tablet,delayed release 40 mg PO DAILY #30 tabs 08/10/25 tramadol 50 mg tablet 25 mg (1/2 x 50 mg) PO Q8H PRN PRN pain 5-10 1 week #20 tabs 08/10/25 Physical Exam Const alert, oriented x3 and no apparent distress Constitutional Narrative: Lying in bed. Lying flat in bed with no SOB. No cough. General Appearance: cooperative HEENT normocephalic, head/scalp atraumatic and hearing grossly normal bilaterally HEENT Narrative: Very poor dental hygiene. Many missing teeth and many obvious caries. Hallitosis has resolved with good mouth care. Head and Scalp: normocephalic and atraumatic Throat: other Other Details: Gingivitis has improved since admission with good mouth care. Eyes PERRL, EOMs intact bilaterally, conjunctivae normal and no scleral icterus Eyes Narrative: No discharge from the eyes and no mattering of the eyelashes. No nystagmus. General Eye: normal appearance of both eyes Neck supple, no JVD, No nodes and no carotid bruits Neck Narrative: Brisk carotid upstroke with good pulse volume General: trachea midline Chest Chest: symmetrical chest wall rise Resp normal respiratory effort, normal air movement and clear to auscultation bilaterally Resp Narrative: Better respiratory effort at discharge than she had at admission. Air exchange is better. No crackles and no wheezes. No conversational dyspnea. Not tachypneic. Effort and Inspection: able to speak in complete sentences Cardio regular rate, regular rhythm, S1 normal heart sound, S2 normal heart sound, no murmurs, no rub, no gallops and no clicks Cardio Narrative: No ectopy GI normal to inspection, nondistended, normoactive bowel sounds, soft to palpation and non-tender GI Narrative: No guarding with palpation. No masses, no hepatosplenomegaly, no bruit. no CVA tenderness Extremity no calf tenderness Extremity Narrative: She has trace pitting edema of both ankles, L>R. She has superficial varicosities of both LE's. Pedal pulses are diminished. Both feet are warm to the touch and she has intact sensation in both feet. She has no clubbing. She does have arthritic changes in the DIP's and PIPS's of both hands. The incision of the R wrist is healed. Swelling is minimal and she has much better ROM. No erythema and no significant increased warmth to touch. The skin is very dry. Skin no wounds and no jaundice Skin Narrative: The herpes zoster rash is dried up and there are no longer any vesicles. No erythema and no increased warmth to touch in the area. Denies pain. The rash started on the R buttocks/R low back above the iliac creat and then spread to involve the left buttocks.......no low back involvement. Neuro Neuro Narrative: Right facial droop is much improved. She has slight asymmetry with smiling on the right. Able to raise her eyebrows and wrinkle her forehead on both sides. Tongue protrudes on the midline. PERRLA, EOMI, no nystagmus. Mild dysarthria now and I can understand most of what she is saying now. Speech was basically unintelligible at admission. Better strength with shoulder shrug on the R. She is R hand dominant. Decreased hand gas brazer on the R but has improved since admission to rehab. She can lift the R arm off the bed and hold it up for a count of 10 but, she has drift........does not hit the bed but, needs a a lot of encouragement to keep her arm elevated. Can not check for ataxia due to weakness........not really putting forth a lot of effort to lift the R arm. She has weakness of the R leg........able to lift it off the bed and hold it off the bed for a count of 5 but, has some drift....does not hit the bed. No ataxia in the RLE. She has intact sensation in all extremities. No extinction. No aphasia. Psych cooperative, denies hallucinations, denies homicidal ideation and denies suicidal ideation Psych Narrative: Affect is much better since started on duloxetine. Also less complaints of pain. She makes good eye contact with me when we are speaking and she is appropriate. Speech is normal. She does not appear anxious. She is not restless or fidgety in the bed. Appearance: appropriate Medical Records Data Homelessness:: Sheltered Weight / BMI Weight Weight: 118 lb 8 oz Body Mass Index (BMI) 21.8 ABG / Lab / Microbiology Data 08/09/25 08:10 08/09/25 08:10 Laboratory: Laboratory Results - last 24 hr 08/10/25 13:40: Total Bilirubin 0.21, Direct Bilirubin 0.11, AST 18, ALT 26, Alkaline Phosphatase 120 H, Total Creatine Kinase 32, Total Protein 6.2, Albumin 3.4, Globulin 2.8, Triglycerides 122, Cholesterol 122, LDL Cholesterol, Calc 57, VLDL Cholesterol 24, HDL Cholesterol 40, Cholesterol/HDL Ratio 3.03 Microbiology: Microbiology 07/20/25 Unknown Fluid - Thoracentesis Fluid Gram Stain - Final 07/20/25 Unknown Fluid - Thoracentesis Fluid Body Fluid Culture - Final Culture exhibits no growth. 07/20/25 Unknown Fluid - Thoracentesis Fluid Anaerobic Culture - Final No anaerobic bacteria isolated. 07/17/25 Unknown Tissue - Incision site Gram Stain - Final 07/17/25 Unknown Tissue - Incision site Wound Culture - Final No growth aerobically. 07/17/25 Unknown Tissue - Incision site Anaerobic Culture - Final No growth in 5 days. 07/17/25 Unknown Incision/Surgical Site Gram Stain - Final 07/17/25 Unknown Incision/Surgical Site Wound Culture - Final No growth aerobically. 07/17/25 Unknown Incision/Surgical Site Anaerobic Culture - Final No growth in 5 days. 07/17/25 Unknown Incision/Surgical Site Gram Stain - Final 07/17/25 Unknown Incision/Surgical Site Wound Culture - Final No growth aerobically. 07/17/25 Unknown Incision/Surgical Site Anaerobic Culture - Final No growth in 5 days. 07/17/25 Unknown Incision/Surgical Site Gram Stain - Final 07/17/25 Unknown Incision/Surgical Site Wound Culture - Final No growth aerobically. 07/17/25 Unknown Incision/Surgical Site Anaerobic Culture - Final No growth in 5 days. 07/16/25 17:35 Blood Culture (Wb) - Left Hand Blood Culture - Final No growth in 5 days. 07/18/25 15:40 Stool Stool Occult Blood (MAURICIO) - Final Indicators for Scoring Admitted with or Primary Diagnosis of CVA/Stroke: Yes Hx of CVA/Stroke: Yes Modified Emmet Score MRS Score at time of Evaluation: 4-Moderate/severe disability (She was a 4 at admission to rehab.) NIHSS NIHSS 1a. Level of Consciousness: 0 - Alert; keenly responsive 1b. LOC Questions: 0 - Answers BOTH questions correctly 1c. LOC Commands: 0 - Performs BOTH tasks correctly 2. Best Gaze: 0 - Normal 3. Visual: 0 - No visual loss 4. Facial Palsy: 1 - Minor paralysis (flattened nasolabial fold, asymmetry on smiling) (Much improved since admission to rehab. Speech is much more intelligible and she has no facial droop when smiling now but, I can not see as many teeth on the R side. ) 5a. Left Arm: 0 - No drift; arm holds 90 (or 45) degrees for full 10 seconds 5b. Right Arm: 1 - Drift; arm drifts downward but doesn?t hit the bed (She has fair shoulder shrug, some good tone with extension/triceps and some good tone in the biceps when I have gher flex the arm. Account Resolution Analyst is weak but, getting stronger. ) 6a. Left Le - No drift; leg holds 30-degree position for full 5 seconds 6b. Right Le - Some effort against gravity; 7. Limb Ataxia: 0 - Absent 8. Sensory: 0 - Normal; no sensory loss 9. Best Language: 0 - No aphasia; normal 10. Dysarthria: 1 = [id number] dysarthria; 11. Extinction and Inattention: 0 - No abnormality Total: 5 Stroke Questions Stroke Team Activated: No D/C Instructions Diet Diet Order/Speech Therapy: INPATIENT Hospital Diet / Speech Therapy Order(s) 07/17/25 12:08 Diet: Cardiac - Heart Healthy Food consistency:: Soft & Bite Sized Liquid Consistency:: Regular/Thin Dietary Modifications:: Lactose Controlled Type of Dietary Supplement:: Marion Breakfast Diet Comments: Built up utensils; 240ml CIB with meals use lactose free milk Discharge order: Continue INPATIENT Hospital Diet / Speech Therapy Orders: Yes Weight Bearing Status: Weight bearing as tolerated Keep extremity elevated above heart level: Legs Call your doctor if you observe: Fever of 101 or Higher, Inability to urinate, Inability to have a bowel movement, Shortness of breath, Dizziness, Fainting spells, Chest pain, Increased palpitations (irregular heartbeat), Calf discomfort, Uncontrolled pain and - (STROKE symptoms: facial droop, slurred speech, inability to get words out, weakness on 1 side of the body and not the other, numbness on 1 side of the body and not the other, inability to maintain your balance sitting or standing, vertigo. ) Cleanse incision/area with: Soap & Water DC O2, CPAP, BIPAP Needs RN Home O2 qualification: No Data to Display PSN CPAP & BiPAP: BiPAP & CPAP Settings per PSN Fraction of Inspired Oxygen ( 21 07/17/25 09:07 FIO2) Home Oxygen Instructions: Home O2 discharge Instructions Type of respiratory needs? Oxygen 08/10/25 11:42 DC Oxygen Instruction Oxygen frequency With Sleeping 08/10/25 11:42 Oxygen liters per minute when 2 LPM 08/10/25 11:42 sleeping Home O2 Discharge instructions: Yes Type of respiratory needs?: Oxygen Oxygen frequency: With Sleeping Oxygen liters per minute when sleepin LPM DC home with Oxygen: No Pending Tests Upon Discharge: none When: you have follow up appts scheduled for you and they are listed later in this document. Meaningful Use Info Meaningful Use Meaningful Use Diagnoses (Choose all that apply): Ischemic CVA CVA Therapy Assessed for PT,OT and/or ST?: Yes Ischemic Stroke Antithrombotic order at d/c?: Yes Dx of Atrial fib/flutter?: No Anticoagulant at discharge?: No Reason anticoagulant not ordered: Treatment not Indicated Statin Dosing Therapy Reference: STATIN DOSE THERAPY REFERENCE: * Patients > 75 years receive moderate or high dose statin therapy. * Patients 75 years or YOUNGER should receive HIGH intensity statin dose unless contraindicated. You will be required to document reason for non-treatment if statin daily dose does not meet guidelines. HIGH DOSE STATIN THERAPY DAILY Atorvastatin > than or = to 40 mg Rosuvastatin > than or = to 20 mg Amlodipine + Atorvastatin > than or = to 2.5/40 mg Ezetimibe + Simvastatin 10/80 mg Simvastatin 80mg Statins at discharge?: Yes If patient is 75 or younger, pt will be discharged on HIGH intensity statin.: Yes Primary Dx Acute Ischemic CVA?: Yes IV thrombolytic ordered during stay?: No Reason IV thrombolytic not ordered: Procedure not Indicated Discharge Plan Admission Admit Date/Time: 07/13/25 15:49 Primary Reason for Your Visit: stroke Attending Provider: Hailey Cordova Primary Care Provider: Meet Matos Consulting Providers: Thad Smith; Thad Martinez; Juanita Murphy Instructions Patient Instructions: CHRIS RN Thoracentesis Dc Additional Instructions / Restrictions: 1. You will need to follow up with Dr. Smith for the R wrist. An appt has been made for you. It is listed later in this document. 2. You will also need to follow up with your PCP, Dr. Meet Matos, and this appt has been made for you as well. 3. You should follow up with a neurologist for the stroke. The neurologist in [place] is Dr. El Spaulding if you would like to follow up in [place]. If you would like to see someone closer to where you live this is an option also. 4. I suspect you have sleep apnea. We checked your oxygen in the blood and almost 30% of the time you were monitored the oxygen was too low. We are sending you home on Oxygen which you will wear anytime you are sleeping. I think you should have a sleep study and your PCP can arrange for this. 5. A referral to palliative care has been made for you by the . They will help with medication management. 6. Since I am not your PCP I am only able to prescribe 1 weeks worth of pain medication (Tramadol) for you at discharge from rehab. If you need more than this you should talk to Dr. Matos. 7. Family declined hospital bed, Ramón lift and other DME ordered. They did obtain a pivot disc. Discharge Orders/Prescriptions Prescriptions: New acetaminophen 500 mg Tablet 1,000 mg PO Q8 PRN (Reason: pain or fever) Qty: 180 0RF acyclovir 800 mg Tablet 800 mg PO 5X/DAY Qty: 15 0RF Rx Instructions: 5 times a day until gone ascorbic acid (vitamin C) 500 mg Tablet 1,000 mg PO LUNCH Qty: 30 0RF ferrous sulfate [FeroSul] 325 mg (65 mg iron) Tablet 325 mg PO DAILY@1200 Qty: 30 0RF Rx Instructions: take this with the Vitamin C at lunchtime daily duloxetine 30 mg Capsule,Delayed Release(Dr/Ec) 30 mg PO DAILY Qty: 30 0RF icosapent ethyl 1 gram Capsule 2 g PO BIDCM Qty: 120 0RF Rx Instructions: 1 caps twice daily niacin 500 mg Tablet Extended Release 24 Hr 500 mg PO QHS Qty: 30 0RF tramadol 50 mg Tablet 25 mg PO Q8H PRN PRN (Reason: pain 5-10) 7 Days Qty: 20 0RF pantoprazole 40 mg Tablet,Delayed Release (Dr/Ec) 40 mg PO DAILY Qty: 30 0RF lidocaine 5 % Adhesive Patch,Medicated 3 patch topical DAILY@0600 Qty: 90 0RF Protocol: *Topical Application Instructions APPLICATION INSTRUCTIONS: apply a patch to both knees and to the L shoulder. Rx Instructions: Apply to both knees and the L shoulder in the AM and remove at bedtime lisinopril 5 mg Tablet 5 mg PO DAILY Qty: 30 0RF Continued aspirin 81 mg tablet 81 mg PO DAILY [id number] 333-133-5 mg tablet 1 tab PO DAILY Centrum Adult 50 Plus 80 mcg tablet,chewable 1 tab PO DAILY dorzolamide-timolol [Cosopt] 22.3-6.8 mg/mL drops 1 drp EACH EYE Q8H atorvastatin [Lipitor] 80 mg tablet 80 mg PO QHS Qty: 30 0RF Discontinued clopidogrel [Plavix] 75 mg tablet 75 mg PO DAILY mirtazapine [Remeron] 15 mg tablet 7.5 mg PO QHS Referrals / Follow Up: Meet Matos MD [Primary Care Provider] - 08/24/25 2:40 pm El Spaulding MD [Non-Staff -Ordering Privileges] - 08/17/25 9:30 am Thad Smith MD [Med Staff - Active Staff] - 09/03/25 3:00 pm () Disposition Disposition (needs filled in before D/C Order can be placed): Home Health Service Charges/Coding Visit Charges Inpatient E&M: 31709 Disch Hosp >30min Hospital Course RU Operations - (Dorsal right wrist are neurotomy for septic joint washout, dorsal right index finger MCP joint arthrotomy for septic joint washout by Dr. Smith on 07/17/2025.) Procedures Transthoracic echo (Transthoracic echocardiogram was done at the preceding hospital and showed normal left ventricular function with a 65 to 70% EF, grade 1 diastolic dysfunction. The bubble study was negative for PFO/ASD.) Summary of Care Provided Minutes Spent on Discharge: 50 Hospital Course: RAYMOND BERRY, is a 70 YO F with a PMH of HTN and glaucoma who presented to an ED on 07/08/25 c/o R side weakness and slurred speech. Sx had been present for at least 24 H but, had gotten worse. NC CTB showed a focal density in the L basal ganglia and no evidence of cortical infarct. NIH was 3 more mild facial droop, drift with the R leg and mild-mod dysarthria. She received loading doses of Plavix and ASA and was started on Atorvastatin 80 mg daily. TTE showed normal LV systolic function with a 65-70% EF. There was grade I diastolic dysfunction and the bubble study was negative for PFO/ASD. MRA of the head showed no LVO or significant flow limiting stenosis or aneurysm. MRI showed a 10mm X 4 mm area of restricted diffusion within the left putamen that extended cranially into the dubois radiata. There was aged related volume loss and evidence of ischemic white matter demyelination. LDL was 191. The DC summary states that she was diagnosed with HFpEF and depression which were new diagnoses. Neurology recommendations are for DAPT for 21 days then ASA alone. DC summary states that at the time of DC she had no evident focal neurologic deficits. She was transferred to the acute inpt rehab unit at [facility] on 07/13/25 for 3 hours of therapy daily to restore function/independence at or near her level prior to the the stroke. Shortly after admission to rehab she c/o R wrist pain. There was mild erythema of the R wrist on 07/15/25 and no openings in the skin. There had been an IV inserted proximal to the wrist. The IV was removed and she was started on Keflex 500 mg 3 times daily. Ice was ordered for the right wrist. The following day she had increased R wrist pain and there was marked swelling and erythema. There were no openings in the skin and no purulent discharge. She had extreme pain with any motion of the wrist. Consult was obtained with Dr. Smith and he performed an aspiration of the joint. Unfortunately the aspirate was not properly handled by lab and the specimen was lost. She was transitioned to Zosyn and Vancomycin. she was taken to surgery on 07/17/25 for arthrotomies and washout of the right wrist and the right index finger MCP joint. Cultures done at the time of surgery had no growth. Dr. Martinez from [place] was consulted and vancomycin was continued. Zosyn was discontinued and she was started on Rocephin. She received a total of 3 weeks of intravenous antibiotics for treatment of septic arthritis. A CXR on 07/16/25 showed infiltrate in the L base and a small L pleural effusion that was not there on an XRAY done prior to admission to rehab. She was treated for HAP with a parapneumonic effusion. I suspect this was present admission to rehab and this may have caused bacteremia leading to the septic R wrist. She also had a small R pleural effusion. BNP was unremarkable. Several days prior to DC she develops a red rash on the R buttocks and low back above the iliac crest and there were vesicles present. She denied any pain but it had the appearance of shingles. She has never had a shingles vaccine. She was started on acyclovir 800 mg 5 times daily. The rash did spread to the left buttock 1 day after acyclovir was initiated but at the time of discharge the vesicles have all dried up and there is no evidence of secondary bacterial infection. She was given a prescription for acyclovir discharged to complete 7 days of treatment for uncomplicated shingles. Raymond was very depressed at admission to rehab. She had insomnia, poor appetite, poor motivation to do therapy and her affect was very flat. She was started on duloxetine 20 mg daily and we utilized this medication because it treats not only anxiety/depression but helps with chronic pain which she has. After 10 days the dose was increased to 30 mg daily and at the time of DC from rehab her affect is good. She has been more cooperative with therapy although she still needs a lot of encouragement to try things with therapy......she frequently says I can't when asked to do something rather than even trying the activity. She has a lot less c/o pain than prior to Duloxetine. She is eating 50-100% of her meals and she is sleeping well at night. She denies feeling suicidal and we have not had any behavioral problems. At the time of discharge from rehab her modified Emmet score is still a 4. She is nonambulatory but can propel a wheelchair independently 70 feet at a slow pace. She requires maximum assistance of 1 to go from supine to sitting and sitting to standing. Therapy is using a pivot disc and she is max assist of 1. The family has obtained a pivot disc for use at home. She is still incontinent of both urine and stool at discharge. With Occupational Therapy she is supervision/set up for eating. She requires moderate assistance with grooming and she is max assist for bathing and upper body dressing. She requires total assistance with lower body dressing. She is also total assist for toileting, toilet transfer and tub/shower transfer. Dysarthria has markedly improved and now her speech is easily understood.......it was essentially unintelligible at admission to rehab. We had many set backs while she was on rehab. It is my hope that with continued therapy she will continue to improve. I suspect she was very deconditioned even prior to the stroke and she admits to not being very active prior to the stroke. Her and dtr came in for family training prior to DC from the hospital. Family decided to take Raymond home. She will have [facility]. They refused a Ramón lift, hospital bed, WC, walker and BSC. They did purchase a pivot disc. They were agreeable to palliative care and chose [facility] to provide care. Raymond has follow up appts with Dr. Smith, Dr. Spaulding and Dr. Matos already scheduled. She is taking Atorvastatin 80 mg daily, niacin assay 500 mg nightly and Vascepa 2 g p.o. twice daily at the time of discharge from rehab. A lipid panel was checked 1 day prior to discharge and the LDL was 54, the HDL was 40 and triglycerides were 122. CPK and liver panel were both normal. Raymond had an overnight trending pulse ox at admission to rehab and it was abnormal with 18 desaturation events lasting greater than 60 seconds. We recommended she discuss with Dr. Matos ordering a formal sleep study....possibly an in home study since she is non-ambulatory and would need someone to stay with her to assist her if she had the test done in the hospital sleep lab.
[2025-08-11 13:42] VITALS: BMI 21.8
--- NOTE | 2025-08-11 13:47 | NURSING ---
discharged home with family. Discharge instruction, medications and appointments reviewed with pt and family. Denies questions or concerns
[2025-08-11 13:52] VITALS: BP 135/85; PULSE 89; RESP 16; TEMP 36.9; O2SAT 94
--- NOTE | 2025-10-01 13:41 | CASEMGMT ---
YUE YOUSSEF NOTE: Referral was made to palliative care @ [facility] when pt discharged from [facility] in August. Call placed to pt at this time for follow-up on this referral. Per pt, palliative has been out to her home 2 times since then and they are scheduled to come back again in October. Humberto TRIVEDI RN CM
== END 2025-08-11 13:55 | disposition home health service (06) | DRG 56 ==
PROVIDERS: Internal Medicine Infectious Disease; Surgery Plastic and Reconstructive Surgery; Admitting Provider Internal Medicine; PCP Family Medicine; Referring Provider Internal Medicine; Visit Provider Internal Medicine
PROC: 0R9 Upper Joints, Drainage (ICD-10-PCS; principal; 2025-07-17 09:30)
DX: I69.351 Hemiplegia and hemiparesis following cerebral infarction affecting right dominant side (principal); J18.9 Pneumonia, unspecified organism; R78.81 Bacteremia; B37.0 Candidal stomatitis; G37.89 Other specified demyelinating diseases of central nervous system; J90 Pleural effusion, not elsewhere classified; M00.9 Pyogenic arthritis, unspecified; I69.322 Dysarthria following cerebral infarction; I69.392 Facial weakness following cerebral infarction; Z51.5 Encounter for palliative care; I10 Essential (primary) hypertension; F32.A Depression, unspecified; I87.2 Venous insufficiency (chronic) (peripheral); E61.1 Iron deficiency; E78.2 Mixed hyperlipidemia; M19.012 Primary osteoarthritis, left shoulder; M75.100 Unspecified rotator cuff tear or rupture of unspecified shoulder, not specified as traumatic; K02.9 Dental caries, unspecified; G47.33 Obstructive sleep apnea (adult) (pediatric); F41.9 Anxiety disorder, unspecified; B02.9 Zoster without complications; G89.29 Other chronic pain; Y95 Nosocomial condition; Z79.899 Other long term (current) drug therapy; H40.9 Unspecified glaucoma; G47.00 Insomnia, unspecified; L03.011 Cellulitis of right finger; Z79.82 Long term (current) use of aspirin; R32 Unspecified urinary incontinence
CPT/HCPCS: 32555; 36415; 36569; 71045; 71046; 73030; 73110; 73130; 80048; 80053; 80061; 80076; 80202; 81001; 82274; 82550; 82728; 82945; 83036; 83540; 83550; 83605; 83615; 83735; 83880; 84100; 84157; 84443; 84550; 85025; 85027; 85652; 86037; 86038; 86140; 86200; 86225; 86431; 87015; 87040; 87070; 87075; 87102; 87116; 87176; 87205; 87206; 88108; 88305; 88313; 88341; 88342; 89050; 92507; 92523; 94668; 94762; 97110; 97112; 97129; 97130; 97162; 97167; 97530; 97535; 97542; 97802; 97803; A4216; J0696; J2405

== ENCOUNTER → 2025-09-10 | Outpatient (CLI) | payer MEDICARE, SELFPAY ==
--- NOTE | 2025-09-10 11:50 | RAD_ITS ---
EXAM: XR Right Hand Complete, 3 or More Views CLINICAL INDICATION: RIGHT HAND TECHNIQUE: Frontal, lateral and oblique views of the right hand. COMPARISON: No relevant prior studies available. FINDINGS: BONES/JOINTS: Severe degenerative change of the 1st carpometacarpal joint, D IP joints, PIP joints, and metacarpophalangeal joints. Widening of the scapholunate joint space concerning for ligamentous injury. No acute fracture. No dislocation. SOFT TISSUES: Unremarkable. RAD/Hand Min 3 Views IMPRESSION: 1. Degenerative changes as above. 2. Widening of the scapholunate joint space concerning for ligamentous injury. Reading Location: [id number]
== END | disposition home or self-care (01) ==
LOC: RAD 11:40
PROVIDERS: PCP Family Medicine; Referring Provider Surgery Plastic and Reconstructive Surgery; Visit Provider Surgery Plastic and Reconstructive Surgery
DX: M00.9 Pyogenic arthritis, unspecified (principal); L03.011 Cellulitis of right finger
CPT/HCPCS: 73130